=== PATIENT | male | born 1935 | race Caucasian/White ===

== ENCOUNTER 2019-04-16 10:54 | Observation (INO) | payer OTHER ==
--- OUTSIDE RECORDS SUMMARY | 2019-04-16 10:55 | XMS REPORT ---
:1935 Author Organization eClinicalWorks Care Team Providers Name Role Phone Molina Ansari Provider Role Unavailable Allergies, Adverse Reactions, Alerts Substance Reaction Event Type N.K.D.A. 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
--- OUTSIDE RECORDS SUMMARY | 2019-04-16 10:55 | XMS REPORT ---
:1935 Author Organization eClinical[employer] Care Team Providers Name Role Phone Ben Street Provider Role Unavailable Allergies No Known Allergies Problems Problem Type Condition Code Onset Dates Condition Status Problem Primary osteoarthritis of right hip M16.11 Active Problem Gait abnormality R26.9 Active Medications No Known Medications Results No Known Results Summary Purpose [employer]ClinicalWorks Submission
--- OUTSIDE RECORDS SUMMARY | 2019-04-16 10:55 | XMS REPORT ---
:1935 Author Organization [employer] Care Team Providers Name Role Phone Ben Street Provider Role Unavailable Allergies, Adverse Reactions, Alerts Substance Reaction Event Type N.K.D.A. Info Not Available Non Drug Allergy Problems Problem Type Condition Code Onset Dates Condition Status Assessment Gait abnormality R26.9 Active Problem Gait abnormality R26.9 Active Problem Primary osteoarthritis of right hip M16.11 Active Problem Arthritis of right hip M16.11 Active Assessment Pain of right hip joint M25.551 Active Assessment Primary osteoarthritis of right hip M16.11 Active Assessment Pain, joint, knee, right M25.561 Active Medications No Known Medications Results No Known Results Summary Purpose [employer] Submission
--- OUTSIDE RECORDS SUMMARY | 2019-04-16 10:55 | XMS REPORT ---
:1935 Author Organization eClinicalWorks Care Team Providers Name Role Phone Molina Ansari Provider Role Unavailable Allergies No Known Allergies Problems Problem Type Condition Code Onset Dates Condition Status Problem Gait abnormality R26.9 Active Problem Primary osteoarthritis of right hip M16.11 Active Problem Arthritis of right hip M16.11 Active Assessment History of falling Z91.81 Active Assessment Encounter for general adult medical Z00.00 Active examination without abnormal findings Medications No Known Medications Results No Known Results Summary Purpose [employer] Submission
--- OUTSIDE RECORDS SUMMARY | 2019-04-16 10:55 | XMS REPORT ---
:1935 Author Organization eClinicalWorks Care Team Providers Name Role Phone Elaine Hernandez Provider Role Unavailable Allergies, Adverse Reactions, Alerts Substance Reaction Event Type N.K.D.A. Info Not Available Non Drug Allergy Problems Problem Type Condition Code Onset Dates Condition Status Assessment Parkinsons disease G20 Active Problem Arthritis of right hip M16.11 Active Problem Gait abnormality R26.9 Active Problem Parkinsons disease G20 Active Assessment Primary osteoarthritis of right hip M16.11 Active Assessment Gait abnormality R26.9 Active Problem Primary osteoarthritis of right hip M16.11 Active Medications Medication Code System Code Instructions Start End Date Status Dosage Date Carbidopa-Levod [facility] [address]-368 25-100 MG Oral Active 1 tablet opa 9-10 QID Results No Known Results Summary Purpose [employer] Submission
[2019-04-16 11:28] LABS: Absolute Lymphocytes (CBC) 1.3 K/uL (0.7-4.9); Lymphocytes % 27.3 % (15.3-44.8); MPV 7.9 fL (7.6-11.3); RBC Red Blood Cell Count 3.65 M/uL (4.33-5.43)
[2019-04-16 11:35] LABS: Protime INR 1.11
--- NOTE | 2019-04-16 11:36 | RAD REPORT ---
EXAM DESCRIPTION: CT - Ct Stroke Brain Wo Cont - 04/16/2019 11:27 am CLINICAL HISTORY: APHASIA COMPARISON: 2017 TECHNIQUE: Computed axial tomography of the head was obtained. All CT scans are performed using dose optimization technique as appropriate and may include automated exposure control or mA/KV adjustment according to patient size. FINDINGS: An intracranial bleed is not seen . The ventricles are normal in caliber. No extra-axial fluid collection is noted. Mild to moderate low-density within periventricular, deep and subcortical white matter likely ischemi c changes secondary to small vessel disease. Small low-density area within the right basal ganglia gavin s the appearance of old lacunar infarction. Fluid within the sinuses/ mastoids is not seen. IMPRESSION: No acute intracranial abnormality is seen. If patient's symptoms persist MRI of the bra in would be recommended. Dr Marc of the emergency room was notified at 11:30 a.m. April 16, 2019
[2019-04-16 11:45] LABS: Potassium 4.2 mmol/L (3.5-5.1)
--- NOTE | 2019-04-16 12:09 | ER ---
Nurse's Notes [facility] Name: Kaiden Rivas III Age: 83 yrs Sex: Male : 1935 Arrival Date: 04/16/2019 Time: 10:58 Bed 2 Private MD: Diagnosis: Transient cerebral ischemic attack, unspecified;Aphasia Presentation: 04/16 10:51 Presenting complaint: EMS states: had a witnessed aphasic event at [facility] that sv lasted for about 30 mins and then came out of it. Pt is back to normal at this time, Caret scale negative, c/o generalized weakness. BP 160/90 HR-63 96% BS-99. Hx Parkinson's and has chronic leg weakness/pain. Transition of care: patient was not received from another setting of care. No acute neurological deficit is noted. The patients blood glucose was checked before arriving to the hospital and was found to be normal. Onset of symptoms was April 16, 2019 at 10:30. Risk Assessment: Do you want to hurt yourself or someone else? Patient reports no desire to harm self or others. Initial Sepsis Screen: Does the patient meet any 2 criteria? RR > 20 per min. No. Patient's initial sepsis screen is negative. Does the patient have a suspected source of infection? No. Patient's initial sepsis screen is negative. Care prior to arrival: Glucose check: 99. 10:51 Method Of Arrival: EMS: [facility] sv 10:51 Acuity: MARYANN 2 sv Triage Assessment: 10:51 The onset of the patients symptoms was April 16, 2019 at 10:20. General: Appears in sv no apparent distress. comfortable, well developed, Behavior is calm, cooperative, appropriate for age. Pain: Denies pain. Neuro: Level of Consciousness is awake, alert, obeys commands, Oriented to person, place, time, situation, Gin Operator are equal bilaterally Moves all extremities. Weakness in bilateral leg(s) Speech is normal, Facial symmetry appears normal, Facial symmetry: tongue is midline, Reports weakness in right leg and left leg which is chronic Denies blurred vision dizziness, numbness headache photophobia. Cardiovascular: Patient's skin is warm and dry. Rhythm is sinus rhythm. Respiratory: Airway is patent Respiratory effort is even, unlabored, Respiratory pattern is regular, symmetrical. Derm: Skin is pink, warm \T\ dry. Musculoskeletal: Range of motion: intact in all extremities. Stroke Activation: Symptom onset < 3 hours Physician: Stroke Attending; Name: ; Notified At: ; Arrived At: Physician: Chief Stroke Resident; Name: ; Notified At: ; Arrived At: Physician: Stroke Resident; Name: ; Notified At: ; Arrived At: Physician: ED Attending; Name: Dr Marc in to see the pt, ok not to call it since symptoms have resolved.; Notified At: 11:02; Arrived At: Physician: ED Resident; Name: ; Notified At: ; Arrived At: Historical: - Allergies: 11:05 No Known Allergies; sv - Home Meds: 11:05 Sinemet 25-100 mg Oral tab [Active]; tumeric [Active]; CBP [Active]; Hemp oil [Active]; sv - PMHx: 11:05 Hypertension; Parkinsons; Chronic leg pain; sv - PSHx: 11:05 None; sv - Immunization history:: Adult Immunizations up to date. - Social history:: Smoking status: Patient/guardian denies using tobacco. - Family history:: not pertinent. - Ebola Screening: : No symptoms or risks identified at this time. - Hospitalizations: : No recent hospitalization is reported. Screenin:39 Abuse screen: Denies threats or abuse. Denies injuries from another. Nutritional hb screening: No deficits noted. Tuberculosis screening: No symptoms or risk factors identified. Fall Risk Total Benson Fall Scale indicates High Risk Score (45 or more points). Fall prevention measures have been instituted. Side Rails Up X 2 Frequent Obs/Assessments Occuring Family Present and informed to notify staff if the need to leave the bedside As available patient and family educated on Fall Prevention Program and Strategies. Assessment: 10:55 Reassessment: Pt has chronic leg pain/weakness and Parkinson's dx. sv 11:33 Patient has been NPO before screening. The patient is alert, and able to follow sv commands. The patient does not exhibit slurred or garbled speech. The patient is not exhibiting difficulty speaking. The patient does not exhibit difficulty understanding words. The patient is able to swallow own secretions with no drooling or need for suction. Patient tolerated one teaspoon of water. No drooling, immediate coughing, gurgling, or clearing of the throat was noted. The patient tolerated 90mL of water. No drooling, immediate coughing, gurgling, or clearing of the throat was noted. The patient passed the bedside swallow screening. Oral medications may be given as ordered. Contact Physician for further diet orders. Provider notified of bedside swallow screening results: Carter Marc MD. 12:45 Reassessment: Patient appears in no apparent distress at this time. No changes from sv previously documented assessment. Patient and/or family updated on plan of care and expected duration. Pain level reassessed. Patient is alert, oriented x 3, equal unlabored respirations, skin warm/dry/pink. 12:51 Reassessment: Dr Burden at the bedside. sv 12:55 T-PA (Activase) Screening: Contraindications: Rapidly improving condition or minor sv deficit: Yes. 13:37 Reassessment: Attempted to call report, DEBI RN to call back. sv 14:00 Reassessment: Patient appears in no apparent distress at this time. No changes from sv previously documented assessment. Patient and/or family updated on plan of care and expected duration. Pain level reassessed. Patient is alert, oriented x 3, equal unlabored respirations, skin warm/dry/pink. Vital Signs: 10:54 BP 168 / 91; Pulse 66; Resp 21; Temp 98.3; Pulse Ox 96% ; Pain 0/10; sv 11:30 BP 159 / 81; Pulse 61; Resp 20; Pulse Ox 97% on R/A; Pain 0/10; hb 12:23 BP 159 / 80; Pulse 62; Resp 20; Pulse Ox 96% ; sv 13:43 BP 155 / 79; Pulse 64; Resp 21; Pulse Ox 97% ; sv [place] Coma Score: 10:54 Eye Response: spontaneous(4). Verbal Response: oriented(5). Motor Response: obeys sv commands(6). Total: 15. NIH Stroke Scale Scores: 10:55 NIHSS Score: 2 sv ED Course: 10:58 Patient arrived in ED. iw 10:59 Rosemarie Redman, BO is Primary Nurse. sv 10:59 Carter Marc MD is Attending Physician. rn 10:59 EKG done, by field sampling technician. reviewed by Carter Marc MD. sv 10:59 Missed attempt(s): 20 gauge in right wrist. done by Willow SORIANO. Bleeding controlled, sv band aid applied, catheter tip intact. 11:02 ED physician to see patient. sv 11:04 Triage completed. sv 11:05 Arm band placed on. sv 11:06 Patient has correct armband on for positive identification. Placed in gown. Bed in low hb position. Call light in reach. Side rails up X2. 11:14 Initial lab(s) drawn, by me, sent to lab. Inserted saline lock: 20 gauge in right ms antecubital area, using aseptic technique. Blood collected. 11:28 CT Stroke Brain w/o Contrast In Process Unspecified. EDMS 11:30 Patient moved back from CT. sv 12:08 Radha Burden MD is Hospitalizing Provider. rn 12:40 Awaiting bed assignment. sv 13:44 No provider procedures requiring assistance completed. Patient admitted, IV remains in sv place. intact. Administered Medications: No medications were administered Point of Care Testing: Blood Glucose: 11:05 Blood Glucose: 89 mg/dL; hb Ranges: Outcome: 12:09 Decision to Hospitalize by Provider. rn 14:04 Admitted to Tele accompanied by [employer], via stretcher, room 228, with chart, Report sv called to DEBI RN 14:04 Condition: stable 14:04 Instructed on the need for admit. 14:16 Patient left the ED. sv NIH Stroke Scale - NIH Stroke Score Date: 04/16/2019 Time: 10:55 Total Score = 2 1a. Level of Consciousness (LOC) - 0(Alert) 1b. Level of Consciousness (LOC) (Year \T\ Age) - 0(Both) 1c. LOC Commands (Open \T\ Closes Eyes/Bakery Manager) - 0(Both) 2. Best Gaze (Lateral Gaze Paresis) - 0(Normal) 3. Visual Field Loss - 0(No visual loss) 4. Facial Palsy - 0(Normal) 5a. Left Arm: Motor (10-second hold) - 0(No drift) 5b. Right Arm: Motor (10-second hold) - 0(No drift) 6a. Left Leg: Motor (5-second hold - always test supine) - 0(No drift) 6b. Right Leg: Motor (5-second hold - always test supine) - 2(Drift, some effort against gravity) 7. Limb Ataxia (finger/nose \T\ heel/castillo - test with eyes open) - 0(Absent) 8. Sensory Loss (pinprick arms/legs/face) - 0(Normal) 9. Best Language: Aphasia (description/naming/reading) - 0(No aphasia) 10. Dysarthria (speech clarity - read or repeat words) - 0(Normal) 11. Extinction and Inattention (visual/tactile/auditory/spatial/personal) - 0(No abnormality) Initials: Signatures: Dispatcher [employer] Rosemarie Hutchinson RN RN sv Williams, Irene, RN RN iw Villarreal, Maria ms Nieto, Roman, MD MD rn Baxter, Heather, RN RN
--- NOTE | 2019-04-16 12:09 | EDPHYS ---
Physician Documentation [facility] Name: Kaiden Rivas III Age: 83 yrs Sex: Male : 1935 Arrival Date: 04/16/2019 Time: 10:58 Bed 2 Private MD: ED Physician Carter Marc HPI: 04/16 11:17 This 83 yrs old Male presents to ER via EMS with complaints of Aphasia. rn 11:17 The patient's problem is reported as dysphasia, expressive aphasia. Onset: The rn symptoms/episode began/occurred just prior to arrival. Duration: This was a single incident, lasting 30 minute(s). The symptoms are alleviated by nothing. The symptoms are aggravated by nothing. Severity of symptoms: At their worst the symptoms were severe in the emergency department the symptoms have resolved. The patient has not experienced similar symptoms in the past. Caregiver reports went to check on him today, was sitting down, awake, using arms and legs, seemed frustrated and unable to speak, patient aware of what was happening, states wanted to speak just physically couldn't. Lasted about 30 min to 1 hour, now back to baseline. No syncope or seizure.. Historical: - Allergies: 11:05 No Known Allergies; sv - Home Meds: 11:05 Sinemet 25-100 mg Oral tab [Active]; tumeric [Active]; CBP [Active]; Hemp oil [Active]; sv - PMHx: 11:05 Hypertension; Parkinsons; Chronic leg pain; sv - PSHx: 11:05 None; sv - Immunization history:: Adult Immunizations up to date. - Social history:: Smoking status: Patient/guardian denies using tobacco. - Family history:: not pertinent. - Ebola Screening: : No symptoms or risks identified at this time. - Hospitalizations: : No recent hospitalization is reported. ROS: 11:17 Constitutional: Negative for fever, chills, and weight loss, Eyes: Negative for injury, rn pain, redness, and discharge, Neck: Negative for injury, pain, and swelling, Cardiovascular: Negative for chest pain, palpitations, and edema, Respiratory: Negative for shortness of breath, cough, wheezing, and pleuritic chest pain, Abdomen/GI: Negative for abdominal pain, nausea, vomiting, diarrhea, and constipation, MS/Extremity: Negative for injury and deformity, Skin: Negative for injury, rash, and discoloration, Neuro: Negative for headache, weakness, numbness, tingling, and seizure, + aphasia Exam: 11:17 Constitutional: This is a well developed, well nourished patient who is awake, alert, rn and in no acute distress. Head/Face: Normocephalic, atraumatic. ENT: MMM Cardiovascular: Regular rate and rhythm. No pulse deficits. Respiratory: No increased work of breathing, no retractions or nasal flaring. Speaking full sentences and clearly. Abdomen/GI: soft, non-tender MS/ Extremity: Pulses equal, no cyanosis. Neurovascular intact. Full, normal range of motion. Equal circumference. Neuro: Awake and alert, GCS 15, oriented to person, place, time, and situation. Cranial nerves II-XII grossly intact. Motor strength 5/5 in all extremities. Sensory grossly intact. Vital Signs: 10:54 BP 168 / 91; Pulse 66; Resp 21; Temp 98.3; Pulse Ox 96% ; Pain 0/10; sv 11:30 BP 159 / 81; Pulse 61; Resp 20; Pulse Ox 97% on R/A; Pain 0/10; hb 12:23 BP 159 / 80; Pulse 62; Resp 20; Pulse Ox 96% ; sv 13:43 BP 155 / 79; Pulse 64; Resp 21; Pulse Ox 97% ; sv NIH Stroke Scale Scores: 10:55 NIHSS Score: 2 sv [place] Coma Score: 10:54 Eye Response: spontaneous(4). Verbal Response: oriented(5). Motor Response: obeys sv commands(6). Total: 15. MDM: 10:59 Patient medically screened. rn 12:07 Differential diagnosis: TIA, Parkinson disease, metabolic disorder, drug effects. Data rn reviewed: vital signs, nurses notes, lab test result(s), EKG, radiologic studies, CT scan, and as a result, I will admit patient. Counseling: I had a detailed discussion with the patient and/or guardian regarding: the historical points, exam findings, and any diagnostic results supporting the discharge/admit diagnosis, lab results, radiology results, the need for further work-up and treatment in the hospital. Response to treatment: the patient's condition has returned to base line, the patient is now symptom free, and as a result, I will admit patient. Admission orders: after a detailed discussion of the patient's condition and case, the admit orders are written by me. 04/16 11:16 Order name: Basic Metabolic Panel; Complete Time: 11: rn 04/16 11:16 Order name: CBC with Diff; Complete Time: rn 04/16 11:16 Order name: Protime (+inr); Complete Time: : rn 04/16 11:16 Order name: Ptt, Activated; Complete Time: rn 04/16 11:16 Order name: CT Stroke Brain w/o Contrast; Complete Time: rn 04/16 11:21 Order name: Glucose, Ancillary Testing; Complete Time: :45 EDMS 04/16 11:16 Order name: EKG; Complete Time: 11: rn 04/16 11:16 Order name: Accucheck; Complete Time: : rn 04/16 11:16 Order name: Cardiac monitoring; Complete Time: : rn 04/16 11:16 Order name: EKG - Nurse/Tech; Complete Time: rn 04/16 11:16 Order name: IV Saline Lock; Complete Time: 11: rn 04/16 11:16 Order name: Labs collected and sent; Complete Time: rn 04/16 11:16 Order name: NPO; Complete Time: rn 04/16 11:16 Order name: O2 Per Protocol; Complete Time: : rn 04/16 11:16 Order name: O2 Sat Monitoring; Complete Time: : rn 04/16 11:16 Order name: Stroke Swallow Screen; Complete Time: 11:32 rn Administered Medications: No medications were administered Point of Care Testing: Blood Glucose: 11:05 Blood Glucose: 89 mg/dL; hb Ranges: Critical Glucose Levels:Adult <50 mg/dl or >400 mg/dl <40 mg/dl or >180 mg/dl Disposition: 04/16/19 12:09 Hospitalization ordered by Radha Burden for Inpatient Admission. Preliminary diagnosis are Transient cerebral ischemic attack, unspecified, Aphasia. - Bed requested for Telemetry/MedSurg (Inpatient). - Status is Inpatient Admission. sv - Condition is Stable. - Problem is new. - Symptoms have improved. UTI on Admission? No NIH Stroke Scale - NIH Stroke Score Date: 04/16/2019 Time: 10:55 Total Score = 2 1a. Level of Consciousness (LOC) - 0(Alert) 1b. Level of Consciousness (LOC) (Year \T\ Age) - 0(Both) 1c. LOC Commands (Open \T\ Closes Eyes/Library Circulation Clerk) - 0(Both) 2. Best Gaze (Lateral Gaze Paresis) - 0(Normal) 3. Visual Field Loss - 0(No visual loss) 4. Facial Palsy - 0(Normal) 5a. Left Arm: Motor (10-second hold) - 0(No drift) 5b. Right Arm: Motor (10-second hold) - 0(No drift) 6a. Left Leg: Motor (5-second hold - always test supine) - 0(No drift) 6b. Right Leg: Motor (5-second hold - always test supine) - 2(Drift, some effort against gravity) 7. Limb Ataxia (finger/nose \T\ heel/castillo - test with eyes open) - 0(Absent) 8. Sensory Loss (pinprick arms/legs/face) - 0(Normal) 9. Best Language: Aphasia (description/naming/reading) - 0(No aphasia) 10. Dysarthria (speech clarity - read or repeat words) - 0(Normal) 11. Extinction and Inattention (visual/tactile/auditory/spatial/personal) - 0(No abnormality) Initials: Signatures: Dispatcher [employer] EDMS Lora Betts Stephanie, RN RN sv Nieto, Roman, MD MD rn Baxter, Heather, RN RN Corrections: (The following items were deleted from the chart) 13:27 12:09 Hospitalization Ordered by Radha Burden MD for Inpatient Admission. bd Preliminary diagnosis is Transient cerebral ischemic attack, unspecified; Aphasia. Bed requested for Telemetry/MedSurg (Inpatient). Status is Inpatient Admission. Condition is Stable. Problem is new. Symptoms have improved. UTI on Admission? No. rn 14:16 13:27 04/16/2019 12:09 Hospitalization Ordered by Radha Burden MD for Inpatient sv Admission. Preliminary diagnosis is Transient cerebral ischemic attack, unspecified; Aphasia. Bed requested for Telemetry/MedSurg (Inpatient). Status is Inpatient Admission. Condition is Stable. Problem is new. Symptoms have improved. UTI on Admission? No. bd
[2019-04-16] MEDS ORDERED: ACETAMINOPHEN 500 MG TAB PO PRN (13:24)
[2019-04-16] MEDS ORDERED: ALPRAZOLAM 0.25 MG TABLET PO PRN (13:24)
[2019-04-16] MEDS ORDERED: MAGNESIUM HYDROXIDE 8% 30 ML PO PRN (13:24)
[2019-04-16] MEDS ORDERED: ONDANSETRON 4 MG/2 ML VIAL IV PRN (13:24)
[2019-04-16 14:33] VITALS: BMI 22.7
[2019-04-16] MEDS ORDERED: HYDRALAZINE HCL 20 MG/ML VIAL IV PRN (14:37)
--- NOTE | 2019-04-16 14:55 | EKG ---
Test Date: 2019-04-16 Test Time: 10:59:51 Product Safety Technical Assistant: ABBY MEASUREMENT RESULTS: Intervals: Rate: 64 AL: 182 QRSD: 74 QT: 438 QTc: 451 [place]: P: 58 AL: 182 QRS: 91 T: -5 INTERPRETIVE STATEMENTS: Normal sinus rhythm Rightward axis Anterior infarct, age undetermined Abnormal ECG Compared to ECG 03/27/2016 05:24:48 Right-axis deviation now present Myocardial infarct finding still present Electronically Signed On 04-16-19 14:54:42 COLD STRIP ROLLER by Abhijeet Bolton
[2019-04-16] MEDS ORDERED: INFLUENZA VACCINE (for 3y+) 0.5 ML DOSE IMVAC ONE (15:00)
--- NOTE | 2019-04-16 15:46 | RAD REPORT ---
EXAM DESCRIPTION: MRI - Brain Wo Cont - 04/16/2019 3:33 pm CLINICAL HISTORY: TIA COMPARISON: Ct Stroke Brain Wo Cont dated 04/16/2019 TECHNIQUE: Sagittal T1-weighted images were obtained along with axial PD, heavily T2-weighted and T2 -FLAIR images. Axial DWI and ADC mapping sequences were also obtained along with coronal heavily T2-w eighted images. FINDINGS: No intracranial hemorrhage, mass or acute infarction. There is no edema or shift of midlin e structures. No extra-axial fluid collections. Nj-matter/white matter junction is preserved. Signa l voids are seen as a normal finding in the major intracranial vessels. Patient has significant atrophy and chronic ischemic change. Ventricles are in proportion to volume l oss. No sella or supra sella abnormality. No globe or orbital content acute finding. Mastoid air cells and paranasal sinuses are clear. IMPRESSION: Negative non-contrast MRI of the Brain for acute finding Prominent atrophy chronic ischemic change.
--- NOTE | 2019-04-16 16:23 | RAD REPORT ---
EXAM DESCRIPTION: - CP - 04/16/2019 4:15 pm CLINICAL HISTORY: TIA COMPARISON: No comparisonsNone. TECHNIQUE: Real-time sonographic evaluation of bilateral carotid and vertebral systems was performed . Nj scale and Doppler interrogation were performed with waveform tracing bilaterally. FINDINGS: Normal high resistance waveforms are noted in both external carotid arteries. The common c arotid arteries and internal carotid arteries show normal low resistance waveforms. No significant plaque formation is seen. Intimal thickening is present. No dissection. Tortuosity not ed on the left. Peak systolic and end diastolic velocity values and the ICA/CCA ratios are in the non -hemodynamically significant range. Antegrade flow seen in both vertebral arteries. Velocity values and ratios were recorded and are retained in the patient's imaging records. IMPRESSION: No significant atherosclerotic changes noted. No evidence of a hemodynamically significant stenosis.
[2019-04-16] MEDS: CARBIDOPA/LEVODOPA 25/100 TAB PO SCH (20:57)
[2019-04-16] MEDS: HEPARIN 5000 UNIT/ML 1 ML VIAL SQ SCH (20:57)
--- NOTE | 2019-04-17 00:01 | HP ---
Date of Admission: 04/16/2019 Chief Complaint: Confusion and aphasia. Past Medical History: 1. Parkinson disease. 2. Hypertension. 3. Chronic neck pain. History Of Present Illness: This patient is an 83-year-old gentleman who presented for confusion and aphasia since this morning. He has a history of hypertension and Parkinson disease. He denies a history of stroke and diabetes. He is a resident at assisted living facility. Patient was found to be walking unsteadily this morning. He did not fall. He was noted to be confused and did not answer the questions correctly. There was tough time for him to speak. His behavior was abnormal per [id number]. Patient denied headache or dizziness. No fever or chills. No cough or chest pain. No nausea or vomiting. No dysuria or diarrhea. No numbness or weakness. He was then brought to the emergency room because of above symptoms. In ED, his blood pressure was noted to be high. WBC 4.8 and hemoglobin 11.9. PT and PTT unremarkable. Sodium 140 and potassium 4.2. Creatinine 1.1. ED physician ordered a CT head, which did not demonstrate acute intracranial events. Highly suspected TIA and he was admitted for further observation. Past medical history as mentioned above. Home Medication: Sinemet for Parkinson. Review of Systems: Unremarkable except that mentioned in HPI. Social History: No smoking. No alcohol. He is a resident at assisted living facility. Physical Examination: HEENT: Unremarkable. Neck: Supple. No tenderness. Chest: Clear to auscultation. No labored breathing. No rales or crackles. Heart: Normal S1, S2. No murmur. Regular heart rhythm. Abdomen: Soft, nontender. Bowel sounds present. No mass. Extremities: No edema. No redness. Neuro: Cranial nerves 2 through 12 intact. Patient oriented x3. Strength 5/5 bilaterally. Sensation intact. Deep tendon reflex normal. Skin: No skin rash. Psych: Mood stable. No anxiety. Laboratory Data: WBC 4.8, hemoglobin 11.9, platelets 157. PT 13, INR 1.1, PTT 29.9. Sodium 140, potassium 4.2, chloride 108, bicarb 27, creatinine 1.13. Imaging Study: There is no acute event per brain CT. Assessment And Plan: 1. Transient ischemic attack. This patient experienced confusion and aphasia. His gait was unsteady this morning. This has been greatly improved and almost resolved. I will start aspirin. We will check lipid panel. Cardiac ultrasound, echo, brain MRI were ordered. We will consult neurologist. PT was ordered. 2. Elevated blood pressure. Patient denied history of hypertension. His daughter mentioned his blood pressure was high on the ambulance. We will give IV hydralazine as needed. If his blood pressure is consistently high, we will give blood pressure medication on discharge. 3. Parkinson disease. This is stable. We will resume home Sinemet. 4. Deep venous thrombosis prophylaxis with heparin. Overall, this patient is stable. He probably can be discharged tomorrow if workup is unremarkable. QT/MODL Voice ID: [id number] ZAYNAB
[2019-04-17 05:41] LABS: Absolute Lymphocytes (CBC) 1.4 K/uL (0.7-4.9); Basophils % 1.1 % (0-1.3); MPV 8.2 fL (7.6-11.3); RBC Red Blood Cell Count 3.68 M/uL (4.33-5.43)
[2019-04-17 06:01] LABS: Albumin 3.5 g/dL (3.4-5.0); Bilirubin Total 0.6 mg/dL (0.2-1.0); Potassium 3.7 mmol/L (3.5-5.1); Protein, Total 6.7 g/dL (6.4-8.2)
[2019-04-17] MEDS: HEPARIN 5000 UNIT/ML 1 ML VIAL SQ SCH (08:11)
[2019-04-17] MEDS: CARBIDOPA/LEVODOPA 25/100 TAB PO SCH ×2 (08:12→13:41)
[2019-04-17 08:39] VITALS: O2SAT 95
[2019-04-17] MEDS ORDERED: ASPIRIN 81 MG CHEWABLE TABLET PO SCH (09:00)
[2019-04-17] MEDS ORDERED: POTASSIUM 25 MEQ EFFERV TAB PO ONE (09:00)
--- NOTE | 2019-04-17 12:54 | ECHO ---
HEIGHT: 5 ft 7 in WEIGHT: 145 lb 1.6 oz DATE OF STUDY: 04/17/[address]: Radha Burden MD 2-DIMENSIONAL: YES M.MODE: YES DOPPLER: YES COLOR FLOW: YES TDS: NO PORTABLE: NO DEFINITY: NO BUBBLE STUDY: NO DIAGNOSIS: TRANSIENT ISCHEMIC ATTACK CARDIAC HISTORY: CATHERIZATION: SURGERY: PROSTHETIC VALVE: PACEMAKER: MEASUREMENTS (cm) DIASTOLIC (NORMALS) SYSTOLIC (NORMALS) IVSd 0.9 (0.6-1.2) LA Diam (1.9-4.0) LVEF 70% LVIDd 3.4 (3.5-5.7) LVIDs 2.1 (2.0-3.5) %FS 39% LVPWd 1.0 (0.6-1.2) Ao Diam 2.7 (2.0-3.7) 2 DIMENSIONAL ASSESSMENT: RIGHT ATRIUM: NORMAL LEFT ATRIUM: NORMAL RIGHT VENTRICLE: NORMAL LEFT VENTRICLE: NORMAL TRICUSPID VALVE: NORMAL MITRAL VALVE: NORMAL PULMONIC VALVE: NORMAL AORTIC VALVE: SCLEROSIS PERICARDIAL EFFUSION: NONE AORTIC ROOT: NORMAL LEFT VENTRICULAR WALL MOTION: NORMAL EJECTION FRACTION. DOPPLER/COLOR FLOW: MILD TRICUSPID REGURGITATION. COMMENTS: MILD TRICUSPID REGURGITATION NORMAL RIGHT VENTRICULAR SYSTOLIC PRESSURE. AORTIC SCLEROSIS. NORMAL LEFT VENTRICULAR SIZE AND EJECTION FRACTION. DECREASED LEFT VENTRICULAR COMPLIANCE. TECHNOLOGIST: JANNA AMBRIZ
[2019-04-17 15:01] VITALS: BP 134/81; TEMP 98.3
--- NOTE | 2019-04-17 21:53 | CON ---
Reason For Consultation: Consultation called because of possible transient ischemic attack. History Of Present Illness: Mr. Rivas is an 83-year-old right-handed patient I see in clinic for Parkinson disease. He also has comorbid hypertension and chronic cervical radiculopathy. The patient's caregiver and family member in the room reports that yesterday he developed sudden onset right arm weakness and slurred speech with some difficulty expressing himself. The symptoms seem to develop over about 10 minutes and then begin to resolve; and by the time he was brought into [facility], he seem to be close to baseline. Head CT scan showed no acute ischemic or hemorrhagic change. Subsequent brain MRI done after his admission identified no acute ischemic or hemorrhagic finding. There was no significant acute abnormalities seen; however , there was prominent atrophy and chronic small-vessel ischemic disease identified. He did have a complete stroke workup including echocardiogram showing ejection fraction 70% with decreased left ventricular compliance, mild tricuspid regurgitation. His carotid artery ultrasound showed no evidence of hemodynamically significant stenosis, and blood work revealed essentially unremarkable complete blood count with differential. Coagulation panel was normal. Chemistries essentially unremarkable, slightly elevated chloride and slightly decreased GFR. Otherwise, liver function studies unremarkable. His LDL cholesterol was elevated to 130, HDL cholesterol 55, and his cholesterol to HDL ratio 3.71. Thyroid-stimulating hormone level normal at 1.62. His electrocardiogram shows sinus rhythm with rightward axis and anterior infarct, age undetermined. As indicated, the patient's symptoms resolved. He is being hospitalized. He did receive some IV fluids and did receive aspirin 81 mg daily and continue his levodopa/carbidopa 25/100 four times daily. Past Medical History: As indicated. Medications: Sinemet or carbidopa/levodopa 100/25 mg 4 times daily, aspirin 81 mg daily, Xanax 0.5 mg as needed, Apresoline for blood pressure control. He did receive heparin 5000 units subcutaneously every 12 hours for DVT prophylaxis. Allergies: NO KNOWN DRUG ALLERGIES. Social History: No alcohol, tobacco, or IV drug use. Patient lives in assisted living. Review of Systems: No recent chills, fevers, myalgias, arthralgias, rash, headache, weight change. Physical Examination: Vital Signs: Blood pressure 134/81, pulse 84, respiratory rate 16, temperature 98.3, oxygen saturation 96% room air. Weight 145 pounds, height 5 feet 7 inches , BMI 22.7. General: Mr. Rivas is resting in bed. He is in no acute distress. HEENT: He is normocephalic, atraumatic. Sclerae are anicteric. Oropharynx is moist and pink. Neck: Supple. Chest: Clear. Heart: Regular. Extremities: No edema, cyanosis, or clubbing. Neurological: He is alert and oriented to situation, place, and person. Slightly slow to respond to some questions. His face has a mild masked like appearance, but there is good facial excursions bilaterally and face is symmetric. He has no focal cranial nerve deficits. Motor examination, he has slightly increased tone in both upper extremities with mild cogwheeling noted bilaterally, but strength is 5/5 proximally and distally. Strength of the lower extremities are completely unremarkable there as well. No focal deficits. Sensory exam is intact in the upper and lower extremities. Reflexes depressed in the upper and lower extremities. Coordination intact in upper and lower extremities. With his gait, he has a slow festinating gait. Assessment/Plan: Mr. Rivas is an 83-year-old patient with possible transient ischemic attack involving left brain producing some dysarthria, dysphagia, and right-sided weakness, has resolved. Should be on the aspirin 81 mg daily. In addition, high-dose statin, perhaps Zocor or Lipitor 40 mg at night, and folic acid 1 mg daily. Continue for his Parkinson disease Sinemet 25/100 four times daily. Patient should engage in Sit and Be Fit exercises for 3-4 times daily and hydrate 8-10 glasses of water daily. He may follow up in Dr. Pichardo's clinic in 1 month after discharge. VAHID/KIMBERLY Voice ID: [id number] Report ID: [id number] ZAYNAB
--- NOTE | 2019-04-18 02:27 | DS ---
Date of Discharge: 04/17/2019 Hospital Course: This patient is an 83-year-old gentleman who presented for confusion and aphasia. He has a history of recurrent Parkinson disease, hypertension, and chronic back pain. In the ED, CT head was unremarkable. ED physician highly suspect TIA. He was admitted for observation. MRI does not demonstrate evidence of a stroke. Echo demonstrated normal ejection fraction. Carotid ultrasound unremarkable. Confusion and speech issues are resolved. I discussed the case with neurologist, who recommended to discharge the patient. This patient needs to follow neurologist in 1 week. Physical Examination: General: On discharge, the patient is awake and alert, in no acute distress. Vital Signs: Temperature 98.3, pulse 84, respiratory rate 18, blood pressure 134/81, oxygen saturation 96%. HEENT: Unremarkable. Normocephalic. Chest: Clear. No labored breathing. No wheezing. Heart: Normal S1, S2. Regular rhythm and rate. No murmur. Abdomen: Soft, nontender. Bowel sounds present. Extremities: No edema, no cyanosis. Neuro: Patient awake and alert, oriented x3. Nonfocal. Laboratory Data: On discharge, WBC 4.3, hemoglobin 12.1, platelet 157. Sodium 140, potassium 3.7, creatinine 0.88. Liver enzymes within normal range. Total cholesterol 204. Discharge Diagnoses: 1. Transient ischemic attack. 2. Parkinson disease. 3. Hypertension. Discharge Medications: Aspirin 81 mg daily, otherwise see discharge medication list. Discharge Instructions: 1. Please follow neurologist in 1 week. 2. Please follow PCP in 1 or 2 weeks. 3. Please go to emergency room if having any concerns including confusion, focal numbness or weakness. Discharge Diet: Healthy heart diet. Discharge Activity: As tolerated. I spent at least 25 minutes to discharge patient including education and arrange a followup. QT/MODL Voice ID: [id number] Report ID: [id number] ZAYNAB
== END 2019-04-17 15:59 | disposition home or self-care (01) ==
LOC: ER 10:54 → ERHOLD 13:19 → 2ND 14:04
PROVIDERS: ADMIT Internal Medicine; ATTEND Internal Medicine
DX: G45.9 Transient cerebral ischemic attack, unspecified (principal); G20 Parkinson's disease; I10 Essential (primary) hypertension; M54.2 Cervicalgia; Z86.73 Personal history of transient ischemic attack (TIA), and cerebral infarction without residual deficits; E11.9 Type 2 diabetes mellitus without complications
CPT/HCPCS: 93005; 93306; 85025 ×2; 80048; 36415 ×2; 83735; 84100; 85610; 80061; 82947; 85730; 84443; 80053; 70450; 93880; 70551; 97112; 97116; 97161; 97530; 94760 ×3; 99285; J1644 ×2; G0378 ×3

== ENCOUNTER 2019-04-20 05:01 | Emergency (ER) | payer OTHER ==
--- OUTSIDE RECORDS SUMMARY | 2019-04-20 05:03 | XMS REPORT ---
:1935 Author Organization [employer] Care Team Providers Name Role Phone Ben [...] Medications Results No Known Results Summary Purpose [employer] Submission
--- OUTSIDE RECORDS SUMMARY | 2019-04-20 05:04 | XMS REPORT ---
[...] Medications Results No Known Results Summary Purpose [employer] Submission
--- OUTSIDE RECORDS SUMMARY | 2019-04-20 05:04 | XMS REPORT ---
[...] Start End Date Status Dosage Date Carbidopa-Levod [facility] [id number] 25-100 MG Oral Active 1 tablet opa 9-10 QID Results No Known Results Summary Purpose [employer] Submission
[2019-04-20 06:01] LABS: Basophils % 0.5 % (0-1.3); Hematocrit 35.6 % (39.6-49.0); Lymphocytes % 14.9 % (15.3-44.8); MPV 8.1 fL (7.6-11.3); RBC Red Blood Cell Count 3.71 M/uL (4.33-5.43)
[2019-04-20] MEDS ORDERED: KETOROLAC 30 MG/ML INJ ONE (06:21)
[2019-04-20 06:22] LABS: Albumin 3.6 g/dL (3.4-5.0); Bilirubin Total 0.6 mg/dL (0.2-1.0); Potassium 3.8 mmol/L (3.5-5.1); Protein, Total 6.8 g/dL (6.4-8.2)
--- NOTE | 2019-04-20 06:58 | EDPHYS ---
Physician Documentation [facility] Name: Kaiden Rivas III Age: 83 yrs Sex: Male : 1935 Arrival Date: 04/20/2019 Time: 05:03 Bed 2 Private MD: ED Physician Kevin Ac HPI: 04/20 06:53 This 83 yrs old Male presents to ER via EMS with complaints of Wrist Pain. homero 06:53 The patient or guardian reports decreased range of motion, pain. The complaints affect homero the right wrist diffusely. Context: resulted from a fall. Onset: The symptoms/episode began/occurred 2 day(s) ago. Modifying factors: The symptoms are alleviated by holding still, the symptoms are aggravated by movement. Compartment Syndrome negative for numbness, tingling, positive for pain. The patient has experienced similar episodes in the past, a few times. Historical: - Allergies: 05:28 No Known Allergies; vc - Home Meds: 05:28 carvidopa [Active]; aspirin Oral [Active]; vc - PMHx: 05:28 Parkinsons; vc - PSHx: 05:28 None; vc - Immunization history:: Adult Immunizations unknown. - Social history:: Smoking status: Patient/guardian denies using tobacco. - Ebola Screening: : No symptoms or risks identified at this time. - Family history:: not pertinent. ROS: 06:53 Constitutional: Negative for fever, chills, and weight loss, Eyes: Negative for injury, homero pain, redness, and discharge, ENT: Negative for injury, pain, and discharge, Neck: Negative for injury, pain, and swelling, Cardiovascular: Negative for chest pain, palpitations, and edema, Respiratory: Negative for shortness of breath, cough, wheezing, and pleuritic chest pain, Abdomen/GI: Negative for abdominal pain, nausea, vomiting, diarrhea, and constipation, Back: Negative for injury and pain, : Negative for injury, bleeding, discharge, and swelling, Skin: Negative for injury, rash, and discoloration, Neuro: Negative for headache, weakness, numbness, tingling, and seizure, Psych: Negative for depression, anxiety, suicide ideation, homicidal ideation, and hallucinations, Allergy/Immunology: Negative for hives, rash, and allergies, Endocrine: Negative for neck swelling, polydipsia, polyuria, polyphagia, and marked weight changes, Hematologic/Lymphatic: Negative for swollen nodes, abnormal bleeding, and unusual bruising. 06:53 MS/extremity: Positive for decreased range of motion, pain, of the right wrist. Exam: 06:53 Constitutional: This is a well developed, well nourished patient who is awake, alert, homero and in no acute distress. Head/Face: Normocephalic, atraumatic. Eyes: Pupils equal round and reactive to light, extra-ocular motions intact. Lids and lashes normal. Conjunctiva and sclera are non-icteric and not injected. Cornea within normal limits. Periorbital areas with no swelling, redness, or edema. ENT: Nares patent. No nasal discharge, no septal abnormalities noted. Tympanic membranes are normal and external auditory canals are clear. Oropharynx with no redness, swelling, or masses, exudates, or evidence of obstruction, uvula midline. Mucous membranes moist. Neck: Trachea midline, no thyromegaly or masses palpated, and no cervical lymphadenopathy. Supple, full range of motion without nuchal rigidity, or vertebral point tenderness. No Meningismus. Chest/axilla: Normal chest wall appearance and motion. Nontender with no deformity. No lesions are appreciated. Cardiovascular: Regular rate and rhythm with a normal S1 and S2. No gallops, murmurs, or rubs. Normal PMI, no JVD. No pulse deficits. Respiratory: Lungs have equal breath sounds bilaterally, clear to auscultation and percussion. No rales, rhonchi or wheezes noted. No increased work of breathing, no retractions or nasal flaring. Abdomen/GI: Soft, non-tender, with normal bowel sounds. No distension or tympany. No guarding or rebound. No evidence of tenderness throughout. Back: No spinal tenderness. No costovertebral tenderness. Full range of motion. Skin: Warm, dry with normal turgor. Normal color with no rashes, no lesions, and no evidence of cellulitis. Psych: Awake, alert, with orientation to person, place and time. Behavior, mood, and affect are within normal limits. 06:53 Musculoskeletal/extremity: ROM: limited active range of motion, limited passive range of motion, Circulation is intact in all extremities. Sensation intact. Compartment Syndrome exam of affected extremity: is normal. DVT Exam: no swelling, no appreciated bluish discoloration, no erythema, no increased warmth, pain, tenderness. Vital Signs: 05:15 BP 147 / 93; Pulse 71; Resp 20; Temp 99.5(R); Pulse Ox 94% on R/A; Weight 74.84 kg; vc Height 5 ft. 6 in. (167.64 cm); Pain 10/10; 05:56 BP 156 / 74; Pulse 67; Resp 21; Temp 99.5(R); Pulse Ox 97% on R/A; Pain 10/10; vc 06:43 BP 157 / 87; Pulse 70; Resp 17; Pulse Ox 98% on R/A; Pain 2/10; vc 05:15 Body Mass Index 26.63 (74.84 kg, 167.64 cm) vc MDM: 05:18 Patient medically screened. tw4 06:53 Data reviewed: vital signs, nurses notes, lab test result(s), radiologic studies, plain homero films. 04/20 05:23 Order name: CBC with Diff; Complete Time: 06:05 [facility] 04/20 06:05 Interpretation: Normal except: WBC 6.8; RBC 3.71; HGB 12.2; HCT 35.6. tw4 04/20 05:23 Order name: CMP; Complete Time: 06:44 4 04/20 05:23 Order name: Wrist Right 3 View XRAY 4 04/20 05:23 Order name: CXR XRAY [facility] 04/20 06:24 Order name: Wrist Splint; Complete Time: 06:40 lp1 Administered Medications: No medications were administered Disposition: 04/20/19 06:57 Discharged to Home. Impression: Sprain of carpal joint of right wrist, Contusion of right wrist, Parkinson's disease, Repeated falls. - Condition is Stable. - Discharge Instructions: Fall Prevention in the Home, Parkinson Disease, Wrist Splint, Wrist Splint, Ckvg-[id number], Wrist Pain, [id number]-[id number], Fall Prevention in the Home, Pysh-pt-Mzcr, Parkinson Disease, Busb-gv-Olwl, Wrist Sprain, Wrist Pain. - Medication Reconciliation Form, Thank You Letter, Antibiotic Education, Prescription Opioid Use form. - Follow up: Private Physician; When: Upon discharge from the Emergency Department; Reason: Recheck today's complaints, Continuance of care. Follow up: River Pichardo MD; When: 2 - 3 days; Reason: Recheck today's complaints, Re-evaluation by your physician. Follow up: Ben Street MD; When: 2 - 3 days; Reason: Recheck today's complaints, Re-evaluation by your physician. - Problem is new. - Symptoms have improved. Signatures: Dispatcher [employer] Kevin Gutierrez MD MD cha Munoz, Edgar, RN RN em Nidia Yeung RN RN lp1 Gregory Bautista MD MD tw4 Kimberly Alexander RN RN vc Corrections: (The following items were deleted from the chart) 06:57 06:57 04/20/2019 06:57 Discharged to Home. Impression: Sprain of carpal joint of right homero wrist; Contusion of right wrist; Parkinson's disease; Repeated falls. Condition is Stable. Discharge Instructions: Wrist Pain. Forms are Medication Reconciliation Form, Thank You Letter, Antibiotic Education, Prescription Opioid Use. Follow up: Private Physician; When: Upon discharge from the Emergency Department; Reason: Recheck today's complaints, Continuance of care. Problem is new. Symptoms have improved. [facility] 07:39 06:57 04/20/2019 06:57 Discharged to Home. Impression: Sprain of carpal joint of right em wrist; Contusion of right wrist; Parkinson's disease; Repeated falls. Condition is Stable. Discharge Instructions: Wrist Pain. Forms are Medication Reconciliation Form, Thank You Letter, Antibiotic Education, Prescription Opioid Use. Follow up: Private Physician; When: Upon discharge from the Emergency Department; Reason: Recheck today's complaints, Continuance of care. Follow up: River Pichardo; When: 2 - 3 days; Reason: Recheck today's complaints, Re-evaluation by your physician. Follow up: Dr. Ben Street; When: 2 - 3 days; Reason: Recheck today's complaints, Re-evaluation by your physician. Problem is new. Symptoms have improved. homero
--- NOTE | 2019-04-20 06:58 | ER ---
Nurse's Notes [facility] Name: Kaiden Rivas III Age: 83 yrs Sex: Male : 1935 Arrival Date: 04/20/2019 Time: 05:03 Bed 2 Private MD: Diagnosis: Sprain of carpal joint of right wrist;Contusion of right wrist;Parkinson's disease;Repeated falls Presentation: 04/20 05:21 Presenting complaint: EMS states: [facility] called stating the patient fell and hurt vc his wrist, when EMS arrived they were informed he fell on the and . When EMS arrived patient was pale and diaphoretic, temp was 98.4 orally with an open mouth. SpO2 93% on 2L, manual pulse of 110, BP 138/84. Transition of care: patient was received from another setting of care (long-term care facility), [facility]. Onset of symptoms was April 20, 2019. Risk Assessment: Do you want to hurt yourself or someone else? Patient reports no desire to harm self or others. Initial Sepsis Screen: Does the patient meet any 2 criteria? No. Patient's initial sepsis screen is negative. Does the patient have a suspected source of infection? No. Patient's initial sepsis screen is negative. Care prior to arrival: Medication(s) given: Normal saline infusion, 500 mL, IV initiated. 20 GA, in the left antecubital area. 05:21 Method Of Arrival: EMS: [facility] 05:21 Acuity: MARYANN 3 vc Triage Assessment: 05:59 General: Appears in no apparent distress. uncomfortable, Behavior is calm, cooperative, vc appropriate for age. Pain: Complains of pain in right wrist Pain at worst was 10 out of 10 on a pain scale. Neuro: Historical: - Allergies: 05:28 No Known Allergies; vc - Home Meds: 05:28 carvidopa [Active]; aspirin Oral [Active]; vc - PMHx: 05:28 Parkinsons; vc - PSHx: 05:28 None; vc - Immunization history:: Adult Immunizations unknown. - Social history:: Smoking status: Patient/guardian denies using tobacco. - Ebola Screening: : No symptoms or risks identified at this time. - Family history:: not pertinent. Screenin:58 Abuse screen: Denies threats or abuse. Nutritional screening: No deficits noted. vc Tuberculosis screening: No symptoms or risk factors identified. Fall Risk Fall in past 12 months (25 points). Secondary diagnosis (15 points) parkinsons. IV access (20 points). Gait- Weak (10 pts.). Total Benson Fall Scale indicates High Risk Score (45 or more points). Assessment: 06:01 General: Appears in no apparent distress. comfortable, Behavior is calm, cooperative, vc appropriate for age. Pain: Complains of pain in right wrist. Neuro: Level of Consciousness is awake, alert, obeys commands, Oriented to person, place. Cardiovascular: Patient's skin is warm and dry. Respiratory: Airway is patent Respiratory effort is even, unlabored. GI: No deficits noted. GI: Stools are reported to be normal. : No deficits noted. EENT: No signs and/or symptoms were reported regarding the EENT system. Derm: No signs and/or symptoms reported regarding the dermatologic system. Musculoskeletal: Range of motion: limited in all extremities. Injury Description: Bruise sustained to righ wrist. 06:41 Reassessment: Patient is alert, oriented x 3, equal unlabored respirations, skin vc warm/dry/pink. Patients daughter at bedside. Patient states feeling better. Vital Signs: 05:15 BP 147 / 93; Pulse 71; Resp 20; Temp 99.5(R); Pulse Ox 94% on R/A; Weight 74.84 kg; vc Height 5 ft. 6 in. (167.64 cm); Pain 10/10; 05:56 BP 156 / 74; Pulse 67; Resp 21; Temp 99.5(R); Pulse Ox 97% on R/A; Pain 10/10; vc 06:43 BP 157 / 87; Pulse 70; Resp 17; Pulse Ox 98% on R/A; Pain 2/10; vc 05:15 Body Mass Index 26.63 (74.84 kg, 167.64 cm) vc ED Course: 05:03 Patient arrived in ED. ds1 05:18 Gregory Bautista MD is Attending Physician. tw4 05:21 Kimberly Alexander RN is Primary Nurse. vc 05:26 Triage completed. vc 05:30 Arm band placed on left wrist. vc 05:40 Patient has correct armband on for positive identification. caregiver with patient. vc 06:10 CXR XRAY In Process Unspecified. EDMS 06:11 Wrist Right 3 View XRAY In Process Unspecified. EDMS 06:37 Attending Physician role handed off by Gregory Bautista MD homero 06:37 Kevin Ac MD is Attending Physician. homero 06:57 River Pichardo MD is Referral Physician. homero 06:[address] MD is Referral Physician. homero 07:14 No provider procedures requiring assistance completed. IV discontinued, intact, vc bleeding controlled, No redness/swelling at site. Pressure dressing applied. Administered Medications: No medications were administered Outcome: 06:57 Discharge ordered by MD. homero 07:14 Discharged to [facility]. vc 07:14 Condition: good 07:14 Discharge instructions given to patient, family, software validation engineer, Instructed on discharge instructions, follow up and referral plans. medication usage, Demonstrated understanding of instructions, follow-up care, medications. 07:39 Patient left the ED. em Signatures: Dispatcher [employer] EDKevin Ortiz MD MD cha Munoz, Edgar, RN RN Lluvia Lowery ds1 Gregory Bautista MD MD tw4 Kimberly Alexander RN RN vc Corrections: (The following items were deleted from the chart) 06:16 05:56 BP 156 / 74; Pulse 67bpm; Resp 18bpm; Pulse Ox 96% RA; Temp 99.5F Rectal; Pain vc 10/10; vc
[2019-04-20 07:45] VITALS: TEMP 99.5
[2019-04-20 07:48] VITALS: BP 157/87; O2SAT 98
--- NOTE | 2019-04-20 08:19 | RAD REPORT ---
EXAM DESCRIPTION: Karl Single View04/20/2019 6:10 am CLINICAL HISTORY: Shortness of breath COMPARISON: 2016 FINDINGS: The medial right upper lobe is hazy Brain lungs appear clear. Moderate to large hiatal hernia The heart is normal size IMPRESSION: Medial right upper lobe is hazy which may indicate a mild pneumonia. This should be foll owed until is clear to exclude a post obstructive process/underlying mass
--- NOTE | 2019-04-20 08:27 | RAD REPORT ---
EXAM DESCRIPTION: RAD - Wrist Right 3 View - 04/20/2019 6:11 am CLINICAL HISTORY: Right wrist pain status post injury FINDINGS: The bones are osteoporotic. Degenerative calcification is present. Osteoarthritis involves the radial carpal, carpal and first carpometacarpal joints. Subchondral cysts are noted. No gross fracture or dislocation is seen. If patient continues have symptoms to suggest an occult fracture MRI would be recommended
== END 2019-04-20 07:39 | disposition home or self-care (01) ==
LOC: ER 05:01
DX: S63.511A Sprain of carpal joint of right wrist, initial encounter (principal); S60.211A Contusion of right wrist, initial encounter; R29.6 Repeated falls; G20 Parkinson's disease; Z79.82 Long term (current) use of aspirin
CPT/HCPCS: 36415; 71045; 80053; 85025; 99283

== ENCOUNTER 2019-04-25 17:20 | Inpatient (IN) | payer OTHER ==
--- OUTSIDE RECORDS SUMMARY | 2019-04-25 17:23 | XMS REPORT ---
:1935 Author Organization [employer] Care Team Providers Name Role Phone Ben [...] Medications Results No Known Results Summary Purpose [employer] Submission
--- OUTSIDE RECORDS SUMMARY | 2019-04-25 17:23 | XMS REPORT ---
[...] Start End Date Status Dosage Date Carbidopa-Levod [facility] 07054-341 25-100 MG Oral Active 1 tablet opa 9-10 QID Results No Known Results Summary Purpose [employer] Submission
--- OUTSIDE RECORDS SUMMARY | 2019-04-25 17:23 | XMS REPORT ---
[...] Medications Results No Known Results Summary Purpose [employer] Submission
--- NOTE | 2019-04-25 17:36 | RAD REPORT ---
EXAM DESCRIPTION: CT - Head Brain Wo Cont - 04/25/2019 5:30 pm CLINICAL HISTORY: Transient alteration of awareness, left-sided facial droop COMPARISON: CT head April 16 TECHNIQUE: Axial 5 mm thick images of the head were obtained without IV contrast. All CT scans are performed using dose optimization technique as appropriate and may include automated exposure control or mA/KV adjustment according to patient size. FINDINGS: No intracranial hemorrhage, mass, edema or shift of mid-line structures. No acute cortical based infarction identified. No cortical edema or sulcal effacement. The moderate atrophy and advanc ed chronic ischemic pattern match the recent comparison. No abnormal extra-axial fluid collections. V entricles are in proportion to volume loss. Arterial and physiologic calcifications are present. Mastoid air cells and visualized portions of the paranasal sinuses are clear. No acute bony findings. IMPRESSION: Negative non-contrast CT head examination for acute finding The prominent chronic ischemic change and moderate atrophy match the recent comparison. Chronic ischemic changes can mask nonhemorrhagic acute infarction. MR brain followup can be obtained if there is ongoing concern for acute ischemia.
[2019-04-25 17:57] LABS: Absolute Lymphocytes (CBC) 0.9 K/uL (0.7-4.9); Basophils % 0.7 % (0-1.3); Hematocrit 36.7 % (39.6-49.0); Lymphocytes % 10.7 % (15.3-44.8); MPV 7.6 fL (7.6-11.3); RBC Red Blood Cell Count 3.81 M/uL (4.33-5.43)
[2019-04-25 18:01] LABS: Protime INR 1.19
[2019-04-25 18:10] LABS: Potassium 4.3 mmol/L (3.5-5.1)
--- NOTE | 2019-04-25 19:04 | ER ---
Nurse's Notes [facility] Name: Kaiden Rivas III Age: 83 yrs Sex: Male : 1935 Arrival Date: 04/25/2019 Time: 17:23 Bed 2 Private MD: Diagnosis: Altered mental status, unspecified;Aphasia Presentation: 04/25 17:20 Presenting complaint: EMS states: called out for AMS, pt normally able to do things on sv his own at [facility]. Pt last seen at 1030 today and given medications and was speaking to staff. Staff called 911 after noticing pt was aphasic. Pupils dilated, left eye deviates to the left. HR-110s 93% RA, BS-140. Pt was found sitting on a chair by staff. Transition of care: [facility]. Onset of symptoms was April 25, 2019. Risk Assessment: Do you want to hurt yourself or someone else? Patient reports no desire to harm self or others. Care prior to arrival: IV initiated. 20 GA, in the left wrist, Glucose check: 114. 17:20 Method Of Arrival: EMS: [facility] sv 17:20 Acuity: MARYANN 2 sv 17:20 An acute neurological deficit is present. The patients blood glucose was checked before aa5 arriving to the hospital and was found to be normal. 17:29 Initial Sepsis Screen: Does the patient meet any 2 criteria? Altered Mental Status. No. sv Patient's initial sepsis screen is negative. Does the patient have a suspected source of infection? No. Patient's initial sepsis screen is negative. Triage Assessment: 17:20 The onset of the patients symptoms was more than six hours ago. General: Appears in no sv apparent distress. uncomfortable, Behavior is calm. Pain: Unable to use pain scale. FLACC scale score is 0 out of 10. Neuro: Level of Consciousness is awake, confused, Pt able to squeeze my hand with his left hand but not his right.. Remote Advisor are weak on right Speech with expressive aphasia noted. Cardiovascular: Patient's skin is warm and dry. Pulses are palpable in right radial artery and left radial artery. Respiratory: Airway is patent Respiratory effort is even, unlabored, Respiratory pattern is regular, symmetrical. Derm: Skin is pale. 19:20 General: Appears. rv Historical: - Allergies: 17:30 No Known Allergies; sv - PMHx: 17:30 chronic leg pain; Hypertension; Parkinsons; sv - PSHx: 17:30 None; sv - Immunization history:: Adult Immunizations unknown. - Social history:: Smoking status: unknown. - Ebola Screening: : Unable to complete screening because patient does not understand, patient is disoriented, . Screenin:19 Abuse screen: Denies threats or abuse. Nutritional screening: No deficits noted. rv Tuberculosis screening: No symptoms or risk factors identified. Fall Risk Secondary diagnosis (15 points) TIA, IV access (20 points). Ambulatory Aid- None/Bed Rest/Nurse Assist (0 pts). Mental Status- Overestimates/Forgets Limitations (15 pts.). Total Benson Fall Scale indicates High Risk Score (45 or more points). Fall prevention measures have been instituted. Side Rails Up X 2 Frequent Obs/Assessments Occuring Family Present and informed to notify staff if the need to leave the bedside. 20:55 VAN Screening: Arm Drift: Minor drift. Visual Disturbance: No visual disturbance noted. vc Aphasia: No aphasia noted. Neglect: No neglect noted. Assessment: 17:20 Reassessment: Pt unable to do NIH scale. sv 17:26 Reassessment: Pt to CT via stretcher by Kim SORIANO. sv 17:35 Reassessment: Pt back from CT. Shekhar BAKER to the bedside. sv 17:40 Patient has been NPO before screening. The patient is not alert and/or unable to follow aa5 commands. Bedside swallow screen discontinued. Patient kept NPO until cleared by Speech Therapy or Physician. 17:40 T-PA (Activase) Screening: Contraindications: Patient reports onset of signs and aa5 symptoms of stroke greater than 6 hours ago: Yes. 18:45 Reassessment: Spoke to pt's [id number] and she states left-sided facial droop is aa5 pt's baseline and states pt was diagnosed with TIA April 16, 2019. Pt's [id number] speaking to SAMUEL Hackett at this time. . 19:12 Reassessment: Patient and/or family updated on plan of care and expected duration. Pain rv level reassessed. Patient denies pain at this time. 20:23 Reassessment: Provider at bedside. vc 20:34 Reassessment: Family at bedside. vc 20:45 Reassessment: Patient is able to answer questions, and is oriented to self. vc 20:56 The patient does not exhibit slurred or garbled speech. The patient is not exhibiting vc difficulty speaking. The patient does not exhibit difficulty understanding words. The patient is able to swallow own secretions with no drooling or need for suction. Patient tolerated one teaspoon of water. No drooling, immediate coughing, gurgling, or clearing of the throat was noted. The patient tolerated 90mL of water. No drooling, immediate coughing, gurgling, or clearing of the throat was noted. The patient passed the bedside swallow screening. Oral medications may be given as ordered. Contact Physician for further diet orders. 21:00 Reassessment: Patient drank an ensure with no complications. vc 21:06 VAN Scoring: Arm Drift: Minor drift Visual Disturbance: No visual disturbance noted. vc Aphasia: No aphasia noted. Neglect: No neglect noted. 21:09 Reassessment: Attempted to call report. Will call back. vc 21:33 Reassessment: Attempted to call report to second floor. Will call back. vc 21:49 General: Appears in no apparent distress. comfortable. Pain: Denies pain. Neuro: Level vc of Consciousness is awake, obeys commands, Oriented to person, place. Cardiovascular: Capillary refill < 3 seconds Patient's skin is warm and dry. Respiratory: Airway is patent Respiratory effort is even, unlabored. GI: No signs and/or symptoms were reported involving the gastrointestinal system. : No signs and/or symptoms were reported regarding the genitourinary system. Musculoskeletal: Range of motion: limited in all extremities. Vital Signs: 17:23 BP 121 / 68; Pulse 86; Resp 18; Temp 97.9(A); Pulse Ox 100% ; Pain 0/10; sv 19:15 BP 115 / 71; Pulse 82; Resp 20; Pulse Ox 93% on R/A; rv 20:15 BP 118 / 75; Pulse 80; Resp 20; Temp 98.09; Pulse Ox 93% on R/A; Pain 0/10; vc 21:00 BP 128 / 84; Pulse 81; Resp 20; Pulse Ox 95% on R/A; Pain 0/10; vc 21:45 BP 111 / 73; Pulse 84; Resp 21; Pulse Ox 94% on R/A; Pain 0/10; vc NIH Stroke Scale Scores: 19:26 NIHSS Score: 6 jr8 21:06 NIHSS Score: 14 vc ED Course: 17:20 Maintain EMS IV. Dressing intact. Site clean \T\ dry. Gauge \T\ site: 20G L wrist. sv 17:23 Patient arrived in ED. iw 17:25 Rosemarie Redman, RN is Primary Nurse. sv 17:25 Patient has correct armband on for positive identification. Bed in low position. Call sv light in reach. Side rails up X2. monitor tech on. Pulse ox on. NIBP on. Door closed. Head of bed elevated. 17:29 Triage completed. sv 17:29 Shekhar Mullen PA is PHCP. jr8 17:29 Carter Marc MD is Attending Physician. jr8 17:30 Arm band placed on. sv 17:31 CT Head Brain wo Cont In Process Unspecified. EDMS 17:46 Initial lab(s) drawn, by me, sent to lab. Inserted saline lock: 22 gauge in right aa5 antecubital area, using aseptic technique. Blood collected. 18:47 Stroke CXR 1 View In Process Unspecified. EDMS 19:03 Anette Pineda MD is Hospitalizing Provider. jr8 19:51 Primary Nurse role handed off by Rosemarie Redman RN sv 20:21 Kimberly Alexander, BO is Primary Nurse. vc 21:12 No provider procedures requiring assistance completed. Patient admitted, IV remains in vc place. Administered Medications: 20:33 Drug: Aspirin Suppository 300 mg Route: ME; vc 21:00 Follow up: Response: No adverse reaction vc Outcome: 19:04 Decision to Hospitalize by Provider. jr8 21:12 Condition: improved vc 21:12 Instructed on the need for admit. 22:01 Admitted to Med/surg accompanied by tech, family with patient, via stretcher, room 225, vc with chart, Report called to BO Bernal 22:12 Patient left the ED. vc NIH Stroke Scale - NIH Stroke Score Date: 04/25/2019 Time: 19:26 Total Score = 6 1a. Level of Consciousness (LOC) - 0(Alert) 1b. Level of Consciousness (LOC) (Year \T\ Age) - 2(Neither) 1c. LOC Commands (Open \T\ Closes Eyes/Evaluation Engineer) - 0(Both) 2. Best Gaze (Lateral Gaze Paresis) - 0(Normal) 3. Visual Field Loss - 0(No visual loss) 4. Facial Palsy - 0(Normal) 5a. Left Arm: Motor (10-second hold) - 0(No drift) 5b. Right Arm: Motor (10-second hold) - 0(No drift) 6a. Left Leg: Motor (5-second hold - always test supine) - 0(No drift) 6b. Right Leg: Motor (5-second hold - always test supine) - 0(No drift) 7. Limb Ataxia (finger/nose \T\ heel/castillo - test with eyes open) - 0(Absent) 8. Sensory Loss (pinprick arms/legs/face) - 0(Normal) 9. Best Language: Aphasia (description/naming/reading) - 2(Severe aphasia) 10. Dysarthria (speech clarity - read or repeat words) - 2(Severe) 11. Extinction and Inattention (visual/tactile/auditory/spatial/personal) - 0(No abnormality) Initials: jr8 NIH Stroke Scale - NIH Stroke Score Date: 04/25/2019 Time: 21:06 Total Score = 14 1a. Level of Consciousness (LOC) - 0(Alert) 1b. Level of Consciousness (LOC) (Year \T\ Age) - 0(Both) 1c. LOC Commands (Open \T\ Closes Eyes/Evaluation Engineer) - 0(Both) 2. Best Gaze (Lateral Gaze Paresis) - 1(Partial gaze palsy) 3. Visual Field Loss - 1(Partial hemianopia) 4. Facial Palsy - 1(Minor Paralysis) 5a. Left Arm: Motor (10-second hold) - 1(Drift) 5b. Right Arm: Motor (10-second hold) - 2(Drift, some effort against gravity) 6a. Left Leg: Motor (5-second hold - always test supine) - 3(No effort against gravity) 6b. Right Leg: Motor (5-second hold - always test supine) - 4(No movement) 7. Limb Ataxia (finger/nose \T\ heel/castillo - test with eyes open) - 1(Present in one limb) 8. Sensory Loss (pinprick arms/legs/face) - 0(Normal) 9. Best Language: Aphasia (description/naming/reading) - 0(No aphasia) 10. Dysarthria (speech clarity - read or repeat words) - 0(Normal) 11. Extinction and Inattention (visual/tactile/auditory/spatial/personal) - 0(No abnormality) Initials: vc Signatures: Dispatcher [employer] Rosemarie Hutchinson RN RN Marialuisa Baez RN RN iw Calderon, Audri, RN RN aa5 Shekhar Mullen PA PA jr8 Joey Quintana RN RN rv Calcote, Vanessa, RN RN vc Corrections: (The following items were deleted from the chart) 21:18 21:11 Reassessment: Patient is able to answer questions, and is oriented to vc self. vc
--- NOTE | 2019-04-25 19:05 | EDPHYS ---
Physician Documentation [facility] Name: Kaiden Rivas III Age: 83 yrs Sex: Male : 1935 Arrival Date: 04/25/2019 Time: 17:23 Bed 2 Private MD: ED Physician Carter Marc HPI: 04/25 19:04 This 83 yrs old Male presents to ER via EMS with complaints of Altered Mental jr8 Status. 19:04 The patient presents with decreased responsiveness, dysphasia. Onset: The jr8 symptoms/episode began/occurred acutely, today, at an unknown time. last known normal was 10 am. Possible causes: CVA or TIA. Associated signs and symptoms: The patient has no apparent associated signs or symptoms. Current symptoms: In the emergency department the patient's symptoms are unchanged from the initial presentation. Patient's baseline: Neuro: alert and fully oriented, Motor: no deficits, Ambulation: walks with assist only, uses walker, Speech: normal. The patient has experienced similar episodes in the past, a few times. The patient has been recently seen by a physician:. Patient admitted last week for TIA. Was seen by neurology and without acute MRI findings. Had been doing well until today. Last known normal was 10 am. When health care workers came to check on him he was not talking at all to them which is very abnormal. History of Parkinson's . Historical: - Allergies: 17:30 No Known Allergies; sv - PMHx: 17:30 chronic leg pain; Hypertension; Parkinsons; sv - PSHx: 17:30 None; sv - Immunization history:: Adult Immunizations unknown. - Social history:: Smoking status: unknown. - Ebola Screening: : Unable to complete screening because patient does not understand, patient is disoriented, . ROS: 19:26 Unable to obtain ROS due to patient's speech is incomprehensible. jr8 Exam: 19:26 ENT: Nares patent. No nasal discharge, no septal abnormalities noted. Oropharynx with jr8 no redness, swelling, or masses, exudates, or evidence of obstruction, uvula midline. Mucous membranes moist. Neck: Trachea midline, no thyromegaly or masses palpated, and no cervical lymphadenopathy. Supple, full range of motion without nuchal rigidity Cardiovascular: Regular rate and rhythm with a normal S1 and S2. No gallops, murmurs, or rubs. Normal PMI, no JVD. No pulse deficits. Respiratory: Lungs have equal breath sounds bilaterally, clear to auscultation and percussion. No rales, rhonchi or wheezes noted. No increased work of breathing, no retractions or nasal flaring. Abdomen/GI: Soft, non-tender, with normal bowel sounds. No distension or tympany. No guarding or rebound. No evidence of tenderness throughout. Skin: Warm, dry with normal turgor. Normal color with no rashes, no lesions, and no evidence of cellulitis. MS/ Extremity: Pulses equal, no cyanosis. Neurovascular intact. Full, normal range of motion. 19:26 Eyes: Periorbital structures: appear normal, Pupils: right pupil is approximately 3 mm(s), left pupil is approximately 4 mm(s), reactive, Extraocular movements: baseline per family, Conjunctiva: normal, Corneas: are normal, Sclera: no appreciated abnormality, Anterior chamber: normal, Lids and lashes: appear normal. 19:26 Neuro: Orientation: to person, place, Mentation: slow to respond, Memory: unable to test, Cranial nerves: Speech is dysarthric, slowed, Motor: moves all fours, Sensation: no obvious gross deficits, seizure activity, is not displayed by the patient, Abnormal movements: resting tremor, is located in the right hand and left hand. Vital Signs: 17:23 BP 121 / 68; Pulse 86; Resp 18; Temp 97.9(A); Pulse Ox 100% ; Pain 0/10; sv 19:15 BP 115 / 71; Pulse 82; Resp 20; Pulse Ox 93% on R/A; rv 20:15 BP 118 / 75; Pulse 80; Resp 20; Temp 98.09; Pulse Ox 93% on R/A; Pain 0/10; vc 21:00 BP 128 / 84; Pulse 81; Resp 20; Pulse Ox 95% on R/A; Pain 0/10; vc 21:45 BP 111 / 73; Pulse 84; Resp 21; Pulse Ox 94% on R/A; Pain 0/10; vc NIH Stroke Scale Scores: 19:26 NIHSS Score: 6 jr8 21:06 NIHSS Score: 14 vc MDM: 17:29 Patient medically screened. 8 18:48 Data reviewed: vital signs, nurses notes, lab test result(s), EKG, radiologic studies, [facility] CT scan, plain films. Data interpreted: Pulse oximetry: on room air is 100 %. Interpretation: normal. Counseling: I had a detailed discussion with the patient and/or guardian regarding: the historical points, exam findings, and any diagnostic results supporting the discharge/admit diagnosis, lab results, radiology results, the need for further work-up and treatment in the hospital. ED course: Family stated that speech and affect very different today. Had been improving since last TIA a week ago Tuesday. Will admit for further evaluation . 19:26 ED course: Patient doing better. Speech more clear and able to answer more questions at [facility] this time. . 19:52 ED course: I have discussed case with Dr. Pichardo and will consult on case . [facility] 04/25 17:26 Order name: glucometer results - FOR PT WITH NO ID; Complete Time: 19:03 sv 04/25 17:46 Order name: Basic Metabolic Panel; Complete Time: 19:03 em 04/25 17:46 Order name: CBC with Diff; Complete Time: 19:03 em 04/25 17:46 Order name: Protime (+inr); Complete Time: 19:03 em 04/25 17:46 Order name: Ptt, Activated; Complete Time: 19:03 em 04/25 21:52 Order name: CBC with Automated Diff EDMT 04/25 21:52 Order name: CBC with Automated Diff EDMT 04/25 21:52 Order name: Comprehensive Metabolic Panel EDMT 04/25 21:52 Order name: Comprehensive Metabolic Panel [facility] 04/25 21:52 Order name: Protime (+INR) EDMT 04/25 21:52 Order name: Protime (+INR) EDMT 04/25 21:52 Order name: Protime (+INR) EDMT 04/25 21:52 Order name: Protime (+INR) EDMT 04/25 21:52 Order name: Protime (+INR) EDMT 04/25 17:24 Order name: CT Head Brain wo Cont; Complete Time: 19:03 iw 04/25 21:52 Order name: Protime (+INR) EDMS 04/25 21:52 Order name: Magnesium EDMT 04/25 21:52 Order name: Magnesium EDMT 04/25 21:52 Order name: Lipid Profile EDMT 04/25 21:52 Order name: Lipid Profile [facility] 04/25 21:52 Order name: CKMB Creatine Kinase MB [facility] 04/25 21:52 Order name: CKMB Creatine Kinase MB [facility] 04/25 21:52 Order name: CKMB Creatine Kinase MB [facility] 04/25 21:52 Order name: CKMB Creatine Kinase MB [facility] 04/25 21:52 Order name: Troponin I [facility] 04/25 21:52 Order name: Troponin I [facility] 04/25 21:52 Order name: Troponin I [facility] 04/25 21:52 Order name: Troponin I [facility] 04/25 21:52 Order name: Sedimentation Rate, Westergren [facility] 04/25 21:52 Order name: Sedimentation Rate, Sedanergren [facility] 04/25 17:46 Order name: Stroke CXR 1 View; Complete Time: 19:25 04/25 17:46 Order name: EKG; Complete Time: 17:47 em 04/25 17:46 Order name: Accucheck; Complete Time: 17:46 04/25 17:46 Order name: Cardiac monitoring; Complete Time: 17:46 em 04/25 17:46 Order name: EKG - Nurse/Tech; Complete Time: 17:46 em 04/25 17:46 Order name: IV Saline Lock; Complete Time: 17:46 em 04/25 17:46 Order name: Labs collected and sent; Complete Time: 17:46 em 04/25 17:46 Order name: NPO; Complete Time: 17:46 04/25 17:46 Order name: O2 Per Protocol; Complete Time: 17:46 04/25 17:46 Order name: O2 Sat Monitoring; Complete Time: 17:46 04/25 17:46 Order name: Stroke Swallow Screen; Complete Time: 19:10 em 04/25 21:52 Order name: Physical Therapy Consult [facility] 04/25 21:52 Order name: Speech Therapy Consult [facility] 04/25 21:52 Order name: NPO [facility] 04/25 21:52 Order name: NPO [facility] 04/25 21:52 Order name: NPO [facility] 04/25 21:52 Order name: Echo with Doppler [facility] 04/25 21:52 Order name: EKG Electrocardiogram EDMT Administered Medications: 20:33 Drug: Aspirin Suppository 300 mg Route: AK; vc 21:00 Follow up: Response: No adverse reaction vc Disposition: 04/26 08:13 Co-signature as Attending Physician, Carter Marc MD. rn Disposition: 04/25/19 19:04 Hospitalization ordered by Anette Pineda for Inpatient Admission. Preliminary diagnosis are Altered mental status, unspecified, Aphasia. - Bed requested for Telemetry/MedSurg (Inpatient). - Status is Inpatient Admission. vc - Condition is Stable. - Problem is new. - Symptoms are unchanged. UTI on Admission? No NIH Stroke Scale - NIH Stroke Score Date: 04/25/2019 Time: 19:26 Total Score = 6 1a. Level of Consciousness (LOC) - 0(Alert) 1b. Level of Consciousness (LOC) (Year \T\ Age) - 2(Neither) 1c. LOC Commands (Open \T\ Closes Eyes/Global Transportation Manager) - 0(Both) 2. Best Gaze (Lateral Gaze Paresis) - 0(Normal) 3. Visual Field Loss - 0(No visual loss) 4. Facial Palsy - 0(Normal) 5a. Left Arm: Motor (10-second hold) - 0(No drift) 5b. Right Arm: Motor (10-second hold) - 0(No drift) 6a. Left Leg: Motor (5-second hold - always test supine) - 0(No drift) 6b. Right Leg: Motor (5-second hold - always test supine) - 0(No drift) 7. Limb Ataxia (finger/nose \T\ heel/castillo - test with eyes open) - 0(Absent) 8. Sensory Loss (pinprick arms/legs/face) - 0(Normal) 9. Best Language: Aphasia (description/naming/reading) - 2(Severe aphasia) 10. Dysarthria (speech clarity - read or repeat words) - 2(Severe) 11. Extinction and Inattention (visual/tactile/auditory/spatial/personal) - 0(No abnormality) Initials: jr8 NIH Stroke Scale - NIH Stroke Score Date: 04/25/2019 Time: 21:06 Total Score = 14 1a. Level of Consciousness (LOC) - 0(Alert) 1b. Level of Consciousness (LOC) (Year \T\ Age) - 0(Both) 1c. LOC Commands (Open \T\ Closes Eyes/Global Transportation Manager) - 0(Both) 2. Best Gaze (Lateral Gaze Paresis) - 1(Partial gaze palsy) 3. Visual Field Loss - 1(Partial hemianopia) 4. Facial Palsy - 1(Minor Paralysis) 5a. Left Arm: Motor (10-second hold) - 1(Drift) 5b. Right Arm: Motor (10-second hold) - 2(Drift, some effort against gravity) 6a. Left Leg: Motor (5-second hold - always test supine) - 3(No effort against gravity) 6b. Right Leg: Motor (5-second hold - always test supine) - 4(No movement) 7. Limb Ataxia (finger/nose \T\ heel/castillo - test with eyes open) - 1(Present in one limb) 8. Sensory Loss (pinprick arms/legs/face) - 0(Normal) 9. Best Language: Aphasia (description/naming/reading) - 0(No aphasia) 10. Dysarthria (speech clarity - read or repeat words) - 0(Normal) 11. Extinction and Inattention (visual/tactile/auditory/spatial/personal) - 0(No abnormality) Initials: vc Signatures: Dispatcher [employer] Rosemarie Hutchinson, RN Morro Gracia RN RN em Nieto, Roman, MD MD rn Roszak, Josh, PA PA jr8 Daily Iniguez RN RN tl1 Kimberly Alexander RN RN vc Corrections: (The following items were deleted from the chart) 04/25 21:00 19:04 Hospitalization Ordered by Anette Pineda MD for Inpatient Admission. tl1 Preliminary diagnosis is Altered mental status, unspecified; Aphasia. Bed requested for Telemetry/MedSurg (Inpatient). Status is Inpatient Admission. Condition is Stable. Problem is new. Symptoms are unchanged. UTI on Admission? No. jr8 22:12 21:00 04/25/2019 19:04 Hospitalization Ordered by Anette Pineda MD for Inpatient vc Admission. Preliminary diagnosis is Altered mental status, unspecified; Aphasia. Bed requested for Telemetry/MedSurg (Inpatient). Status is Inpatient Admission. Condition is Stable. Problem is new. Symptoms are unchanged. UTI on Admission? No. tl1
--- NOTE | 2019-04-25 19:09 | RAD REPORT ---
EXAM DESCRIPTION: RAD - Chest Single View - 04/25/2019 6:47 pm CLINICAL HISTORY: md discretion, shortness of breath, altered mental status COMPARISON: Chest Single View dated 04/20/2019 TECHNIQUE: AP portable chest image was obtained 04/25/2019 6:47 pm . FINDINGS: Lung volumes are low. Hazy opacification in the lower right lung field is present concerni ng for early pneumonia. No significant failure or volume overload findings. Large hiatal hernia is ev ident. Heart and vasculature are normal. No measurable pleural effusion and no pneumothorax. No acute bony abnormality seen. No acute aortic findings suspected. IMPRESSION: Limited shallow inspiration exam suspicious for early right lung field pneumonia.
[2019-04-25] MEDS ORDERED: ASPIRIN 600 MG/SUPP PR ONE (20:11)
[2019-04-25] MEDS ORDERED: ONDANSETRON 4 MG/2 ML VIAL IV PRN (21:49)
--- NOTE | 2019-04-25 22:23 | P.HP ---
Certification for Inpatient Patient admitted to: Observation With expected LOS: <2 Midnights Patient will require the following post-hospital care: Prison Practitioner: I am a practitioner with admitting privileges, knowledge of patient current condition, hospital course, and medical plan of care. Services: Services provided to patient in accordance with Admission requirements found in Title 42 Section 412.3 of the Code of Federal Regulations Patient History Date of Service: 04/26/19 Reason for admission: aphasia and decreased cognition History of Present Illness: arron grimes is a 83yoM w/ pmhx of HTN and parkinson's who presents w/ worsening confusion and aphasia. although the CT head is unremarkable he was recently discharged on 04/17/2019 with identical s/s and diagnosed w/ TIA. per the family the patient was discharged on tuesday, then fell on tuesday and has had fluctuating cognitive interaction. per the family prior to the week before his last admission he was able to dress, ambulate to the restroom and feed himself which had diminshed extensively since his last hospitalization and thus needed more total care. he is being admitted for observation although on the last hospitalization he had a MRI w/o eidence of a stroke and TTE that demonstrated normal ejection fraction and a unremarkable carotid ultrasound. while in the ED his speech had improved but still appeared (per the family) to be worse than previously. he also started complaining of right wrist pain 2 days post fall and then 2 days ago he started complaining of right shoulder pain. this admission the family states that he has lived in an independent living facility and that he has daily care, where he has providers with him from 10am to 4pm daily. the family states that one of the providers visited in the morning and noted the decreased cognition and poor speech but also noted that it worsened by the afternoon along w/ lethargic and decreased responsiveness. therefore he was brought into the ER for further evaluation. he denies smoking and drug hx. family reports rare etoh use. Allergies No Known Allergies Allergy (Verified 04/25/19 23:06) Home Medications: Carbidopa/Levodopa [Carbidopa-Levo 25-100 mg Odt] 1 each PO QID 04/16/19 Turmeric Root Extract [Turmeric] 1 cap PO DAILY 04/16/19 Aspirin Chewable [Aspirin Chewable*] 81 mg PO DAILY #60 tab.chew 04/17/19 - Past Medical/Surgical History Diabetic: No - Family History Father History Unknown: Yes - Social History Alcohol use: No CD- Drugs: No Caffeine use: No Review of Systems General: Weakness Eyes: As per HPI ENT: Unremarkable Respiratory: Unremarkable Cardiovascular: Unremarkable Gastrointestinal: Unremarkable Musculoskeletal: Shoulder Pain (right ), Hand Pain (right wrist) Neurological: Weakness, Change in Speech Physical Examination - Physical Exam General: Alert, In no apparent distress, Oriented x1, Disheveled, Other (pt weak and frail, appears cognitively delayed and wax/waning) HEENT: Other (left eye superior eyelid drooping ) Respiratory: Clear to auscultation bilaterally, Normal air movement Cardiovascular: No edema, Regular rate/rhythm, No murmurs Capillary refill: >2 Seconds Gastrointestinal: Soft and benign, Non-distended, No rebound Musculoskeletal: No clubbing, No swelling Integumentary: No rashes, No breakdown Neurological: Abnormal speech, Abnormal strength External genitalia: Deferred Rectal: Deferred - Studies Laboratory Data (last 24 hrs) 04/25/19 17:46: PT 13.9 H, INR 1.19, APTT 24.8 04/25/19 17:46: WBC 8.0 D, Hgb 12.5 L, Hct 36.7 L, Plt Count 190 D 04/25/19 17:46: Sodium 132 L, Potassium 4.3, BUN 17, Creatinine 1.05, Glucose 124 H Assessment and Plan - Plan 83yoM admitted w/ aphasia h/o TIA w/ previous neurology, TTE, MRI and carotid US evaluation will need CM evaluation and interventions for home therapy will need repeat therapy evaluations will repeat MRI w/o contrast and consult neuro will obtain tsh, a1c, and lipid panel eval for infectious or other metabolic causes will need bedside dysphagia eval. TIA -recent hx, started on ASA c/w ASA repeat MRI htn - currently BP normotensive DVT - scds - Advance Directives Does patient have a Living Will: Yes Does patient have a Durable POA for Healthcare: Yes
[2019-04-25 22:55] LABS: CKMB Creatine Kinase MB < 1.0 ng/mL (0.3-3.6); Troponin I < 0.02 ng/mL (0.0-0.045)
[2019-04-25 23:04] VITALS: BMI 24.3
[2019-04-25] MEDS: NA CHLORIDE 0.9% 1,000 ML IV SCH (23:06)
[2019-04-26 06:27] LABS: Absolute Lymphocytes (CBC) 0.6 K/uL (0.7-4.9); Basophils % 0.2 % (0-1.3); Hematocrit 34.5 % (39.6-49.0); Lymphocytes % 9.7 % (15.3-44.8); MPV 8.2 fL (7.6-11.3); RBC Red Blood Cell Count 3.61 M/uL (4.33-5.43)
[2019-04-26 06:36] LABS: Protime INR 1.2
[2019-04-26 06:51] LABS: CKMB Creatine Kinase MB < 1.0 ng/mL (0.3-3.6); Troponin I < 0.02 ng/mL (0.0-0.045)
[2019-04-26 06:57] LABS: Albumin 3.4 g/dL (3.4-5.0); Bilirubin Total 0.8 mg/dL (0.2-1.0); Magnesium 2.2 mg/dL (1.8-2.4); Potassium 4.2 mmol/L (3.5-5.1); Protein, Total 7.2 g/dL (6.4-8.2); Thyroid Stimulating Hormone 0.425 uIU/mL (0.360-3.740)
[2019-04-26] MEDS ORDERED: INFLUENZA VACCINE (for 3y+) 0.5 ML DOSE IMVAC ONE (09:00)
[2019-04-26] MEDS: NA CHLORIDE 0.9% 1,000 ML IV SCH (11:50)
--- NOTE | 2019-04-26 13:36 | P.PN ---
Subjective Date of Service: 04/26/19 Chief Complaint: aphasia and decreased cognition Recurrent admission for expressive aphasia. Physical Examination - Vital Signs Temperature: 97.4 F Blood Pressure: 160/72 Pulse: 64 Respirations: 18 Pulse Ox (%): 93 - Physical Exam General: Alert, In no apparent distress HEENT: Atraumatic, PERRLA, EOMI Neck: Supple, JVD not distended Respiratory: Clear to auscultation bilaterally, Normal air movement Cardiovascular: Regular rate/rhythm, Normal S1 S2 Gastrointestinal: Normal bowel sounds, No tenderness Musculoskeletal: No tenderness Integumentary: No rashes Neurological: Normal speech, Normal tone, Normal affect Lymphatics: No axilla or inguinal lymphadenopathy - Studies Laboratory Data (last 24 hrs) 04/25/19 17:46: PT 13.9 H, INR 1.19, APTT 24.8 04/25/19 17:46: WBC 8.0 D, Hgb 12.5 L, Hct 36.7 L, Plt Count 190 D 04/25/19 17:46: Sodium 132 L, Potassium 4.3, BUN 17, Creatinine 1.05, Glucose 124 H Assessment And Plan - Plan 83yoM admitted w/ #Aphasia h/o TIA w/ previous neurology, TTE, MRI and carotid US evaluation. CM evaluation and interventions for home therapy will need repeat therapy evaluations will repeat MRI w/o contrast and consult neuro will benefit from Echo with bubble study to rule out PFO #TIA -recent hx, started on ASA c/w ASA repeat MRI brain pending #Hypertension - currently BP normotensive DVT - scds
--- NOTE | 2019-04-26 13:41 | EKG ---
Test Date: 2019-04-25 Test Time: 17:38:30 Insurance Claims Supervisor: CHRISTINE MEASUREMENT RESULTS: Intervals: Rate: 81 [place]: 198 QRSD: 82 QT: 418 QTc: 485 [place]: P: 21 [place]: 198 QRS: 25 T: 36 INTERPRETIVE STATEMENTS: Normal sinus rhythm Prolonged QT Abnormal ECG Compared to ECG 04/16/2019 10:59:51 Prolonged QT interval now present Right-axis deviation no longer present Myocardial infarct finding no longer present Electronically Signed On 04-26-19 13:38:09 [employer]IL PAINT SHADER by Shreyas Clinton
--- NOTE | 2019-04-26 14:01 | ECHO ---
HEIGHT: 5 ft 6 in WEIGHT: 150 lb 8 oz DATE OF STUDY: 04/26/[address]: Sabino Suazo 2-DIMENSIONAL: YES M.MODE: YES DOPPLER: YES COLOR FLOW: YES TDS: NO PORTABLE: NO DEFINITY: NO BUBBLE STUDY: YES DIAGNOSIS: TRANSIENT ISCHEMIC ATTACK CARDIAC HISTORY: CATHERIZATION: NO SURGERY: NO PROSTHETIC VALVE: NO PACEMAKER: NO MEASUREMENTS (cm) DIASTOLIC (NORMALS) SYSTOLIC (NORMALS) IVSd 0.9 (0.6-1.2) LA Diam 3.4 (1.9-4.0) LVEF 73% LVIDd 3.8 (3.5-5.7) LVIDs 2.2 (2.0-3.5) %FS 41% LVPWd 0.9 (0.6-1.2) Ao Diam 2.7 (2.0-3.7) 2 DIMENSIONAL ASSESSMENT: RIGHT ATRIUM: NORMAL LEFT ATRIUM: NORMAL RIGHT VENTRICLE: NORMAL LEFT VENTRICLE: NORMAL TRICUSPID VALVE: NORMAL MITRAL VALVE: NORMAL PULMONIC VALVE: NORMAL AORTIC VALVE: NORMAL PERICARDIAL EFFUSION: NONE AORTIC ROOT: NORMAL LEFT VENTRICULAR WALL MOTION: NORMAL. DOPPLER/COLOR FLOW: NORMAL. COMMENTS: NORMAL 2D ECHO. NO EVIDENCE OF ATRIAL SEPTAL DEFECT. TECHNICALLY DIFFICULT STUDY. TECHNOLOGIST: JENNIFER HALL/ JANNA AMBRIZ
[2019-04-26 14:40] LABS: CKMB Creatine Kinase MB < 1.0 ng/mL (0.3-3.6); Troponin I < 0.02 ng/mL (0.0-0.045)
--- NOTE | 2019-04-26 15:10 | RAD REPORT ---
EXAM DESCRIPTION: MRI - Brain W/Wo Cont - 04/26/2019 2:53 pm CLINICAL HISTORY: Aphasia, CVA COMPARISON: CT head April 25, MR brain April 16 TECHNIQUE: Sagittal and axial T1-weighted images were obtained. Axial PD/heavily T2-weighted and T2- FLAIR images were obtained along with axial DWI/ADC mapping sequences. Coronal heavily T2 weighted s equence obtained. Axial and coronal post-contrast T1-weighted images were also obtained. A 15 ml Mul tihance contrast following utilized. FINDINGS: Approximately 12 mm area of abnormal diffusion signal is present in the posterior limb int ernal capsule on the left. There is corresponding decreased signal on ADC mapping. Corresponding T2 s ignal abnormality present on T2/IR sequencing. There is no edema or shift of midline structures. No e xtra-axial fluid collections. Nj-matter/white matter junction is preserved. Signal voids are seen as a normal finding in the major intracranial vessels. Patient has prominent chronic ischemic change in the cerebral white matter. Moderate atrophy changes are present. Ventricles are in proportion. Post-contrast images show normal enhancement. No dural thickening. Mastoid air cells and paranasal sinuses are clear. No globe or orbital content abnormality. IMPRESSION: Small 12 mm nonhemorrhagic acute infarction in the posterior limb internal capsule on th e left. Patient has moderate atrophy and prominent chronic ischemic change matching prior imaging.
--- NOTE | 2019-04-26 16:05 | RAD REPORT ---
EXAM DESCRIPTION: RAD - Barium Swallow Modified - 04/26/2019 3:52 pm CLINICAL HISTORY: trouble swallowing COMPARISON: Abdomen Exam Limited dated 03/26/2016 TECHNIQUE: The patient was given liquid, semi-solid and solid forms of barium. Lateral view fluorosc opic imaging was performed in conjunction with speech pathology service. FINDINGS: Laryngeal penetration not cleared with thin by straw despite cued hard throat clear and re swallow two times. Aspiration no cough with thin liquid on third consecutive cup sip with tablet. P haryngeal residue vallecular pyriform posterior wall. .5 -1 second swallow delay,osteophytes c5-c7. Total fluoroscopy time: 4 minutes and 16 seconds
[2019-04-26] MEDS: ATORVASTATIN 20 MG TAB PO SCH (22:20)
--- NOTE | 2019-04-26 22:20 | CON ---
Reason For Consultation: Consultation called because of possible stroke. History Of Present Illness: Mr. Rivas is an 83-year-old right-handed patient with multiple stroke risk factors including hypertension, prior transient ischemic attacks and small vessel cerebra l ischemic disease along with Parkinson's, which is a diagnosis that he is followed for in my clinic. He was recently admitted about less than 2 weeks ago to the hospital with aphasia and difficulty wi th his articulation and poor balance. At the time, his brain CT scan and MRI were negative. His wor kup also did not reveal significant carotid blockage or atrial fibrillation. His symptoms had resolv ed at that admission. He did well for about a day and a half, then had difficulty with slurred speec h, confusion with his expression, and weakness causing a fall. He was brought back to [facility], where his head CT scan was unremarkable for any acute ischemic or hemorrhagic change. However , subsequent brain MRI identified a 12 mm nonhemorrhagic acute infarct in the posterior limb of the i nternal capsule on the left. Since admission, the patient believes he has regained some articulation , but is not back to normal and he still has some difficulty getting the proper words out. He actual ly will be ambulated with physical therapy later today and it is anticipated based on his stroke that he may have right-sided weakness in the legs and arm. Past Medical History: Stroke, transient ischemic attack, Parkinson disease, hypertension, cervical r adiculopathy. Allergies: NO KNOWN DRUG ALLERGIES. Social History: No alcohol, tobacco, or IV drug use. He lives in assisted living. Home Medications: Sinemet 25/100 four times daily, aspirin 81 mg daily, Xanax 0.5 mg daily as needed , Apresoline as needed. Family History: Noncontributory. Review of Systems: He has no recent fevers or chills, nausea, vomiting, myalgias, arthralgias, rash, psychiatric complai nts, gastrointestinal issues, or genitourinary issues. Physical Examination: Vital Signs: Blood pressure 152/82, pulse from 64 to 112, respiratory rate is 16 to 20, temperature 98.8, oxygen saturation 93% on room air. General: Mr. Rivas is resting in bed. He is in no acute distress. HEENT: He is normocephalic, atraumatic. His sclerae are anicteric. Oropharynx is moist. Neck: Supple. Chest: Clear. Heart: Regular. Extremities: No edema or cyanosis. Neurological: He is alert and oriented to situation, place, and person. He has no significant expre ssive aphasia; however, he has some difficulty with articulation, especially labial, lingual, and gut tural sounds. Unable to clearly repeat the phrase [employer]. Otherwise, on cranial ner ve, he has slight decrease of the right nasolabial fold, but good excursions bilaterally. Intact to light touch temperature in the face bilaterally. Tongue and palate are in midline. Motor examinatio n in the right upper extremity around 4+/5, on the left side 5/5. In his lower extremity on the righ t, he is 4/5 proximally and distally, on the left 5/5. Sensory exam, slight decreased to light touch temperature in the right upper and lower extremity compared to the left side. His coordination is i ntact in upper and lower extremities. His reflexes are symmetric, depressed. His gait will be asses sed when he ambulates with the physical therapist with the gait belt in place. Laboratory Studies: White blood cell count 6.1, hemoglobin 11.7, hematocrit 34.5, platelets 195. IN R 1.2. His basic metabolic panel is essentially just remarkable for glucose being elevated at 121. His hemoglobin A1c is 5.5. AST is 11, ALT 14. TSH 0.425. His LDL cholesterol elevated to 105, HDL cholesterol 61, total cholesterol 175. Assessment: Mr. Rivas is an 83-year-old patient with multiple strokes and now a new left posterior li mb of internal capsule stroke with setting of dyslipidemia, hypertension. He does have Parkinson dis ease, has a comorbid condition. He does have deficits of articulation and right-sided weakness. Plan: His medication regimen should include aspirin 81 mg daily along with Plavix 75 mg daily and a statin moderate dose, Lipitor 20 mg at night, folate acid 1 mg daily. In the setting of his acute st roke, he should have permissive hypertension for the next 5 days. Patient should be evaluated for transfer to acute inpatient rehabilitation, where intense physical th erapy can help him regain his speech and his strength in the right side with balance, coordination, a nd gait improvement as well. He will benefit greatly from acute rehab given the very recent stroke. VAHID/MODL Voice ID: [id number] Report ID: [id number]
[2019-04-27 06:09] LABS: Protime INR 1.23
[2019-04-27] MEDS: NA CHLORIDE 0.9% 1,000 ML IV SCH ×3 (06:40→19:53)
[2019-04-27] MEDS: ASPIRIN EC 81 MG TAB PO SCH (09:13)
[2019-04-27] MEDS: FOLIC ACID 1 MG TABLET PO SCH (09:13)
--- NOTE | 2019-04-27 13:23 | P.PN ---
Subjective Date of Service: 04/27/19 Chief Complaint: aphasia and decreased cognition Recurrent admission for expressive aphasia. Improving. Daughters at bedside Productive cough. Denies any SOB Physical Examination - Vital Signs Temperature: 97.8 F Blood Pressure: 167/81 Pulse: 60 Respirations: 16 Pulse Ox (%): 96 - Physical Exam General: Alert, In no apparent distress HEENT: Atraumatic, PERRLA, EOMI Neck: Supple, JVD not distended Respiratory: Clear to auscultation bilaterally, Normal air movement Cardiovascular: Regular rate/rhythm, Normal S1 S2 Gastrointestinal: Normal bowel sounds, No tenderness Musculoskeletal: No tenderness Integumentary: No rashes Neurological: Normal tone, Normal affect, Abnormal speech Lymphatics: No axilla or inguinal lymphadenopathy - Studies Laboratory Data (last 24 hrs) 04/26/19 13:50: Troponin I < 0.02 Imagings Data: Small 12 mm nonhemorrhagic acute infarction in the posterior limb internal capsule on the left. Patient has moderate atrophy and prominent chronic ischemic change matching prior imaging. Medications List Reviewed: Yes Assessment And Plan - Plan 83yoM admitted w/ h/o TIA #Acute stroke- pw Aphasia. was recently dc from hospital for TIA and work up was completed. Speech is improved -MRI brain confirmed. Secondary prevention initiated with aspirin and statin. -Neurologist on consult. PT/ST/OT. -Echo with bubble study completed. No evidence of PFO -Inpatient rehab evaluation #Productive cough-no leukocytosis and afebrile. -CXR. IS -hold abx. check sputum culture. #Hypertension - currently BP normotensive -permissive hypertension unless otherwise by neurologist. DVT - scds Dispo- inpatient rehab pending evaluation
--- NOTE | 2019-04-27 15:16 | RAD REPORT ---
EXAM DESCRIPTION: RAD - Chest Single View - 04/27/2019 3:06 pm CLINICAL HISTORY: fever COMPARISON: Chest Single View dated 04/25/2019; Chest Single View dated 04/20/2019None. TECHNIQUE: AP portable chest image was obtained 04/27/2019 3:06 pm . FINDINGS: Lung volumes are low similar to comparison. No peripheral mass consolidation. Hiatal herni a is evident. Lung base scarring and/ or atelectasis present medial left base. Heart and vasculature are normal. No measurable pleural effusion and no pneumothorax. No acute bony abnormality seen. No ac mandi aortic findings suspected. IMPRESSION: Chronic chest findings are present as detailed. No pneumonia, failure or other acute finding seen.
[2019-04-27] MEDS: ATORVASTATIN 20 MG TAB PO SCH (20:58)
[2019-04-28] MEDS: NA CHLORIDE 0.9% 1,000 ML IV SCH (03:01)
[2019-04-28 06:01] LABS: Protime INR 1.16
[2019-04-28] MEDS: ASPIRIN EC 81 MG TAB PO SCH (09:38)
[2019-04-28] MEDS: CARBIDOPA/LEVODOPA 25/100 TAB PO SCH ×4 (09:38→20:35)
[2019-04-28] MEDS: FOLIC ACID 1 MG TABLET PO SCH (09:38)
[2019-04-28] MEDS: ATORVASTATIN 20 MG TAB PO SCH (20:35)
[2019-04-29 05:46] LABS: Protime INR 1.19
[2019-04-29] MEDS: CARBIDOPA/LEVODOPA 25/100 TAB PO SCH ×4 (08:50→22:02)
[2019-04-29] MEDS: ASPIRIN EC 81 MG TAB PO SCH (08:50)
[2019-04-29] MEDS: FOLIC ACID 1 MG TABLET PO SCH (08:50)
--- NOTE | 2019-04-29 10:52 | P.PN ---
Subjective Date of Service: 04/28/19 Chief Complaint: aphasia and decreased cognition Subjective: No new changes (No change patient stable no new complaints awaiting transfer) Review of Systems Unremarkable Physical Examination - Vital Signs Temperature: 97.9 F Blood Pressure: 155/82 Pulse: 72 Respirations: 18 Pulse Ox (%): 92 - Physical Exam General: Alert, Oriented x3, Cooperative Respiratory: Clear to auscultation bilaterally Cardiovascular: No edema, Regular rate/rhythm - Studies Medications List Reviewed: Yes Assessment & Plan - Problems (Diagnosis) (1) Stroke Current Visit: Yes Status: Acute Plan: Patient is 83 years of age admitted following a new stroke his add multiple strokes in the past hemodynamically stable no progression eating and drinking no new complaints final signs all stable Qualifiers: Laterality of affected vessel: left
[2019-04-29] MEDS ORDERED: lisinopriL 10 MG TAB PO SCH (10:54)
--- NOTE | 2019-04-29 10:55 | P.PN ---
Subjective Date of Service: 04/29/19 Chief Complaint: aphasia and decreased cognition Subjective: Improving (No new change no new complaints caregiver at the bedside slight nasal bleeding) Review of Systems Unremarkable Physical Examination - Vital Signs Temperature: 97.9 F Blood Pressure: 155/82 Pulse: 72 Respirations: 18 Pulse Ox (%): 92 - Physical Exam General: Alert, In no apparent distress, Oriented x3 Respiratory: Clear to auscultation bilaterally Cardiovascular: No edema, Regular rate/rhythm Neurological: Abnormal speech - Studies Medications List Reviewed: Yes Assessment & Plan - Problems (Diagnosis) (1) Stroke Current Visit: Yes Status: Acute Plan: Patient admitted following a new stroke clinically stable awaiting transfer to rehab vital signs medications reviewed no change blood pressure is mildly elevated I have added a small dose of lisinopril Qualifiers: Laterality of affected vessel: left
[2019-04-29] MEDS: ATORVASTATIN 20 MG TAB PO SCH (22:02)
[2019-04-30 05:54] LABS: Protime INR 1.19
[2019-04-30 06:27] LABS: Urine Appearance CLEAR; Urine Bilirubin NEGATIVE (NEG); Urine Blood NEGATIVE (NEG); Urine Color YELLOW; Urine Glucose NEGATIVE (NEG); Urine Protein NEGATIVE (NEG); Urine Specific Gravity 1.015 (1.005-1.030)
[2019-04-30 06:28] LABS: Urine Microscopic Reflex NO UMIC
[2019-04-30] MEDS ORDERED: lisinopriL 5 MG TAB PO SCH ×2 (09:00→11:25)
[2019-04-30] MEDS ORDERED: lisinopriL 10 MG TAB PO SCH (09:00)
[2019-04-30] MEDS: ASPIRIN EC 81 MG TAB PO SCH (09:29)
[2019-04-30] MEDS: CARBIDOPA/LEVODOPA 25/100 TAB PO SCH ×4 (09:29→21:42)
[2019-04-30] MEDS: FOLIC ACID 1 MG TABLET PO SCH (09:29)
[2019-04-30] MEDS ORDERED: ACETAMINOPHEN 500 MG TAB PO PRN (11:18)
[2019-04-30] MEDS ORDERED: TRAMADOL HCL 50 MG TAB PO PRN (11:18)
--- NOTE | 2019-04-30 11:24 | P.PN ---
Subjective Date of Service: 04/30/19 Primary Care Provider: Unknown Chief Complaint: aphasia and decreased cognition Subjective: Other (Patient reports some mild pain to the knees. Patient overall stable. Caregiver at bedside.) Physical Examination - Vital Signs Temperature: 98.2 F Blood Pressure: 135/74 Pulse: 67 Respirations: 16 Pulse Ox (%): 94 - Physical Exam General: Alert, In no apparent distress, Oriented x3, Cooperative HEENT: Atraumatic Neck: Supple Respiratory: Clear to auscultation bilaterally, Normal air movement Cardiovascular: Normal pulses, Regular rate/rhythm Musculoskeletal: Other (Right-sided weakness noted.) Neurological: Normal affect, Abnormal strength (Right-sided weakness) - Studies Medications List Reviewed: Yes Assessment & Plan Discharge Plan: Other (Inpatient rehab versus skilled placement) Plan to discharge in: 24 Hours Physician Review Additional Text: Impression: Acute small 12 mm nonhemorrhagic acute infarct in the posterior limb internal capsule on the left with history of CVA now with right-sided weakness and articulation Hyperlipidemia Hypertension Parkinson's Plan: Acute small 12 mm nonhemorrhagic acute infarct in the posterior limb internal capsule on the left with history of CVA now with right-sided weakness and articulation: Notes reviewed. Patient on aspirin. Will add Plavix as recommended by Neurology. Continue with DVT prophylaxis-Lovenox. Continue with folic acid and statin medication. Continue with physical therapy. Await to see if patient will qualify for inpatient rehab verses skilled placement. Will provide medication for pain. Will discuss with family about plan of care. Hyperlipidemia: Continue with statin medication. Hypertension: Continue with blood pressure medication-lisinopril. Parkinson's: Continue with medication. Time Spent Managing Pts Care (In Minutes): 55
[2019-04-30] MEDS: CLOPIDOGREL 75 MG TABLET PO SCH (12:00)
[2019-04-30] MEDS: ENOXAPARIN 40 MG/0.4 ML SQ SCH (17:10)
[2019-04-30] MEDS: ATORVASTATIN 20 MG TAB PO SCH (21:42)
[2019-05-01 05:51] LABS: Absolute Lymphocytes (CBC) 1.1 K/uL (0.7-4.9); Basophils % 0.5 % (0-1.3); Hematocrit 34.2 % (39.6-49.0); Lymphocytes % 15.8 % (15.3-44.8); MPV 7.6 fL (7.6-11.3); RBC Red Blood Cell Count 3.58 M/uL (4.33-5.43)
[2019-05-01 06:32] LABS: Magnesium 2.2 mg/dL (1.8-2.4); Potassium 4.2 mmol/L (3.5-5.1)
[2019-05-01] MEDS: ASPIRIN EC 81 MG TAB PO SCH (09:46)
[2019-05-01] MEDS: CARBIDOPA/LEVODOPA 25/100 TAB PO SCH ×3 (09:46→16:59)
[2019-05-01] MEDS: FOLIC ACID 1 MG TABLET PO SCH (09:47)
[2019-05-01] MEDS: CLOPIDOGREL 75 MG TABLET PO SCH (09:47)
[2019-05-01 11:23] VITALS: O2SAT 93
--- NOTE | 2019-05-01 14:20 | P.PN ---
Subjective Date of Service: 05/01/19 Primary Care Provider: Unknown Chief Complaint: aphasia and decreased cognition Subjective: Improving, Doing well Physical Examination - Vital Signs Temperature: 99.0 F Blood Pressure: 104/70 Pulse: 95 Respirations: 17 Pulse Ox (%): 95 - Physical Exam General: Alert, In no apparent distress, Oriented x3, Cooperative HEENT: Atraumatic Neck: Supple Respiratory: Clear to auscultation bilaterally, Normal air movement Cardiovascular: Normal pulses, Regular rate/rhythm Neurological: Abnormal strength (Still with right sided weakness) - Studies Medications List Reviewed: Yes Assessment & Plan Discharge Plan: Other (Inpatient rehab) Plan to discharge in: 24 Hours Physician Review Additional Text: Impression: Acute small 12 mm nonhemorrhagic acute infarct in the posterior limb internal capsule on the left with history of CVA now with right-sided weakness and articulation Hyperlipidemia Hypertension Parkinson's Plan: Acute small 12 mm nonhemorrhagic acute infarct in the posterior limb internal capsule on the left with history of CVA now with right-sided weakness and articulation: Patient still with right-sided weakness. Improvement noted. Daughter at bedside. Patient currently on aspirin, Plavix, folic acid, and statin medication. Continue with DVT prophylaxis. Continue with physical therapy and occupational therapy. Awaiting to see if patient will qualify for inpatient rehab. Spoke with physical therapy today. Patient would benefit highly with inpatient rehab. If denied family desires the patient to go back to assisted living with caregiver and home health/physical therapy. I will turn the service over to the hospitalist team tomorrow. I will go over the plan of care with them. Hyperlipidemia: Continue with statin medication. Hypertension: Continue with blood pressure medication-lisinopril. May need to hold blood pressure medication if systolic less than 140. Will continue to slowly adjust. Parkinson's: Continue with medication. Time Spent Managing Pts Care (In Minutes): 55
--- NOTE | 2019-05-01 16:42 | P.DS ---
Admission Date: 04/26/19 Discharge Date: 05/01/19 Primary Care Provider: Unknown Disposition: TRANSFER TO INPATIENT REHAB Discharge Condition: GOOD Reason for Admission: aphasia and decreased cognition Consultations: Neurology-Dr. Pichardo Procedures: MRI Brain: COMPARISON: CT head April 25, MR brain April 16 TECHNIQUE: Sagittal and axial T1-weighted images were obtained. Axial PD/ heavily T2-weighted and T2-FLAIR images were obtained along with axial DWI/ADC mapping sequences. Coronal heavily T2 weighted sequence obtained. Axial and coronal post-contrast T1-weighted images were also obtained. A 15 ml Multihance contrast following utilized. FINDINGS: Approximately 12 mm area of abnormal diffusion signal is present in the posterior limb internal capsule on the left. There is corresponding decreased signal on ADC mapping. Corresponding T2 signal abnormality present on T2/IR sequencing. There is no edema or shift of midline structures. No extra- axial fluid collections. Nj-matter/white matter junction is preserved. Signal voids are seen as a normal finding in the major intracranial vessels. Patient has prominent chronic ischemic change in the cerebral white matter. Moderate atrophy changes are present. Ventricles are in proportion. Post-contrast images show normal enhancement. No dural thickening. Mastoid air cells and paranasal sinuses are clear. No globe or orbital content abnormality. IMPRESSION: Small 12 mm nonhemorrhagic acute infarction in the posterior limb internal capsule on the left. Patient has moderate atrophy and prominent chronic ischemic change matching prior imaging. ECHO: LEFT VENTRICULAR WALL MOTION: NORMAL. DOPPLER/COLOR FLOW: NORMAL. COMMENTS: NORMAL 2D ECHO. NO EVIDENCE OF ATRIAL SEPTAL DEFECT. TECHNICALLY DIFFICULT STUDY. CXR: COMPARISON: Chest Single View dated 04/25/2019; Chest Single View dated 2019None. TECHNIQUE: AP portable chest image was obtained 04/27/2019 3:06 pm . FINDINGS: Lung volumes are low similar to comparison. No peripheral mass consolidation. Hiatal hernia is evident. Lung base scarring and/ or atelectasis present medial left base. Heart and vasculature are normal. No measurable pleural effusion and no pneumothorax. No acute bony abnormality seen. No acute aortic findings suspected. IMPRESSION: Chronic chest findings are present as detailed. No pneumonia, failure or other acute finding seen. Medical Problem List: Acute small 12 mm nonhemorrhagic acute infarct in the posterior limb internal capsule on the left with history of CVA now with right-sided weakness and articulation Hyperlipidemia Hypertension Parkinson's Brief History of Present Illness: 83-year-old male with history of prior TIA, hypertension and small- vessel cerebral ischemic disease with Parkinson's. Patient was recently admitted about 2 weeks ago to the hospital for aphasia and difficulty with his articulation and poor balance. At the time brain CT and MRI were negative for acute stroke. Workup did not reveal any carotid blockage or AFib. He presented to the emergency room with slurred speech, confusion with his expression and a fall. He was found to have right-sided weakness. CT scan unremarkable. Patient was admitted for further evaluation. Hospital Course: Patient presented with weakness, slurred speech and difficulty with articulation. Patient was admitted for further evaluation. Patient found to have acute small 12 mm nonhemorrhagic acute infarct in the posterior limb internal capsule on the left. Patient with history of TIA. Patient also was found to have right-sided weakness. Patient was evaluated by neurology. Neurology recommended aspirin, Plavix, folic acid and statin medication. DVT prophylaxis was initiated. Patient has done well during the course of his stay. Patient has been evaluated by physical therapy and occupational therapy. They are recommending inpatient rehab. At discharge patient has been accepted to inpatient rehab. Patient will continue with inpatient rehab. Patient will continue with aspirin 81 mg daily, Plavix 75 mg daily, folic acid 1 mg daily, and Lipitor 20 mg daily. Patient may continue with DVT prophylaxis at inpatient rehab. Patient with history of hypertension. Blood pressure has remained stable off medication. Patient was on lisinopril. Will need to consider restarting lisinopril if blood pressure remains elevated. Patient with history of Parkinson's. At discharge he will continue with his medication. Patient found to have hyperlipidemia. LDL elevated at 105. Patient has been started on Lipitor. Patient will continue with Lipitor 20 mg daily. Patient was evaluated by speech therapy. Patient found to have moderate pharyngeal dysphagia. Patient currently on mechanical diet. Will continue with speech recommendation. Vital Signs/Physical Exam: Temp Pulse Resp BP Pulse Ox 99.0 F 95 H 17 104/70 95 05/01/19 14:20 05/01/19 14:20 05/01/19 14:20 05/01/19 14:20 05/01/19 14:20 General: Alert, In no apparent distress, Oriented x3 HEENT: Atraumatic Neck: Supple Respiratory: Clear to auscultation bilaterally, Normal air movement Cardiovascular: Normal pulses, Regular rate/rhythm Gastrointestinal: Normal bowel sounds, Soft and benign, Non-distended Neurological: Normal speech, Abnormal strength (Weakness to the right side still noted. Some improvement noted) Laboratory Data at Discharge: WBC 6.7 K/uL (4.3-10.9) 05/01/19 05:19 Hgb 11.7 g/dL (13.6-17.9) L 05/01/19 05:19 Hct 34.2 % (39.6-49.0) L 05/01/19 05:19 Plt Count 235 K/uL (152-406) D 05/01/19 05:19 PT 13.9 SECONDS (9.5-12.5) H 04/30/19 05:19 INR 1.19 04/30/19 05:19 APTT 24.8 SECONDS (24.3-36.9) 04/25/19 17:46 Sodium 137 mmol/L (136-145) 05/01/19 05:19 Potassium 4.2 mmol/L (3.5-5.1) 05/01/19 05:19 BUN 18 mg/dL (7-18) 05/01/19 05:19 Creatinine 0.91 mg/dL (0.55-1.3) 05/01/19 05:19 Glucose 115 mg/dL (74-106) H 05/01/19 05:19 Magnesium 2.2 mg/dL (1.8-2.4) 05/01/19 05:19 Total Bilirubin 0.8 mg/dL (0.2-1.0) 04/26/19 05:52 AST 11 U/L (15-37) L 04/26/19 05:52 ALT 14 U/L (12-78) 04/26/19 05:52 Alkaline Phosphatase 81 U/L (45-117) 04/26/19 05:52 Troponin I < 0.02 ng/mL (0.0-0.045) 04/26/19 13:50 Triglycerides 45 mg/dL (<150) 04/26/19 05:52 Cholesterol 175 mg/dL (<200) 04/26/19 05:52 HDL Cholesterol 61 mg/dL (40-60) H 04/26/19 05:52 Cholesterol/HDL Ratio 2.87 04/26/19 05:52 Home Medications: Carbidopa/Levodopa [Carbidopa-Levo 25-100 mg Odt] 1 each PO QID 04/16/19 Turmeric Root Extract [Turmeric] 1 cap PO DAILY 04/16/19 Aspirin Chewable [Aspirin Chewable*] 81 mg PO DAILY #60 tab.chew 04/17/19 Atorvastatin Calcium [Lipitor*] 20 mg PO BEDTIME #30 tab 05/01/19 Clopidogrel Bisulfate [Plavix*] 75 mg PO DAILY #30 tablet 05/01/19 Folic Acid 1 mg PO DAILY #90 tablet 05/01/19 New Medications: Atorvastatin Calcium [Lipitor*] 20 mg PO BEDTIME #30 tab Clopidogrel Bisulfate [Plavix*] 75 mg PO DAILY #30 tablet Folic Acid 1 mg PO DAILY #90 tablet Patient Discharge Instructions: 1. Patient will be transferred to inpatient rehab. 2. Patient presented with weakness, slurred speech and difficulty with articulation. Patient was admitted for further evaluation. Patient found to have acute small 12 mm nonhemorrhagic acute infarct in the posterior limb internal capsule on the left. Patient with history of TIA. Patient also was found to have right-sided weakness. Patient was evaluated by neurology. Neurology recommended aspirin, Plavix, folic acid and statin medication. DVT prophylaxis was initiated. Patient has done well during the course of his stay. Patient has been evaluated by physical therapy and occupational therapy. They are recommending inpatient rehab. At discharge patient has been accepted to inpatient rehab. Patient will continue with inpatient rehab. Patient will continue with aspirin 81 mg daily, Plavix 75 mg daily, folic acid 1 mg daily, and Lipitor 20 mg daily. Patient may continue with DVT prophylaxis at inpatient rehab. 3. Patient with history of hypertension. Blood pressure has remained stable off medication. Patient was on lisinopril. Will need to consider restarting lisinopril if blood pressure remains elevated. 4. Patient with history of Parkinson's. At discharge he will continue with his medication. 5. Patient found to have hyperlipidemia. LDL elevated at 105. Patient has been started on Lipitor. Patient will continue with Lipitor 20 mg daily. 6. Patient was found to have moderate pharyngeal dysphagia. Patient will continue with mechanical diet. Will continue with speech recommendations. Diet: Mechanical soft Activity: Fall precautions Time spent managing pt's care (in minutes): 55
[2019-05-01] MEDS: ENOXAPARIN 40 MG/0.4 ML SQ SCH (17:00)
[2019-05-01 17:28] VITALS: BP 119/72; TEMP 98.7
[2019-05-02] MEDS ORDERED: lisinopriL 5 MG TAB PO SCH (09:00)
== END 2019-05-01 18:53 | DRG 65 ==
LOC: ER 17:20 → 2ND 20:31 → OBSVTOIN 04-26 16:12
PROVIDERS: ADMIT Internal Medicine; ATTEND Internal Medicine
DX: I63.9 Cerebral infarction, unspecified (principal); G81.91 Hemiplegia, unspecified affecting right dominant side; R47.81 Slurred speech; I10 Essential (primary) hypertension; R29.706 NIHSS score 6; G20 Parkinson's disease; E78.5 Hyperlipidemia, unspecified; R47.01 Aphasia; Z86.73 Personal history of transient ischemic attack (TIA), and cerebral infarction without residual deficits; Z23 Encounter for immunization
CPT/HCPCS: 36415; 70450; 70553; 71045; 74230; 80048; 80053; 80061; 81003; 82553; 82947; 83036; 83735; 84443; 84484; 85025; 85610; 85652; 85730; 87804; 90471; 92526; 92610; 92611; 93005; 93306; 97110; 97112; 97116; 97161; 97530; 97542; 99285; A9577; G0378; J1650; J7030; Q2035

== ENCOUNTER 2019-05-01 15:45 | Inpatient (IN) | payer OTHER ==
--- NOTE | 2019-05-01 16:43 | R.PREADM ---
SCREENING DATE AND TIME 05/01/2019 15:49 (COLLAR SEWER) ANTICIPATED REHAB ADMISSION DATE 05/03/2019 REFERRING FACILITY [facility] REFERRAL DATE AND TIME 05/01/2019 15:49 (COLLAR SEWER) REFERRAL ROOM# 225 ACUTE ADMIT DATE 04/25/2019 Previous Rehabilitation(s): No. 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 River Pichardo M.D. MR# [id number] NAME KAIDEN RIVAS ADDRESS [address] [place] [address] PHONE [facility] [id number] DATE OF 1935 AGE 83 SSN# [id number] GENDER male MARITAL STATUS RACE white ADMIT FROM 02 - [facility] PRE-HOSPITAL LIVING SETTING 01 - Home (private home/apt. board/care, assisted living, retirement, transitional living) HOME TYPE AND DETAILS Type of home: Independent living # of levels in the residence: 1 # of steps to enter the residence: 0 # of steps within the residence: 0 PRE-HOSPITAL LIVING WITH Attendant FAMILY SUPPORT Yes PRIMARY FAMILY CONTACT NAME Karely Walker PRIMARY FAMILY CONTACT PHONE PRIMARY FAMILY CONTACT RELATIONSHIP Daughter PHONE PRIMARY FAMILY CONTACT ON ADM.? no IS PRIMARY FAMILY CONTACT AUTH. REP.? no 1ST EMERGENCY CONTACT Karely Walker 1ST CONTACT PHONE 1ST CONTACT RELATIONSHIP Daughter PHONE 1ST CONTACT ON ADM. no IS 1ST CONTACT AUTH. REP.? no PHONE 2ND CONTACT ON ADM.? no PATIENT EMPLOYMENT STATUS Retired (for age) PATIENT EMPLOYER No Employer PAYOR INFORMATION: 1ST PAYOR NAME Silvina VALENTIN 1ST PAYOR PHONE [phone] 1ST PAYOR POLICY ID [id number] INJURY/ILLNESS DUE TO ACCIDENT? No ANOTHER LIBERTARIAN RESPONSIBLE? No PRIMARY REHAB/ACUTE DIAGNOSIS: Nonhemorrhagic Acute Infarction in the Posterior Limb Internal Capsule on the left Parkinsons Disease ONSET DATE 04/25/2019 REHAB IMPAIRMENT CATEGORY (REE): 01 Stroke (STR) MEETS 60% rule AFFECTED EXTREMITIES: RLE, and RUE PRIMARY DIAGNOSIS-RELATED SURGERIES: NONE COMORBID REHAB/ACUTE DIAGNOSES: - N/A HTN PARKINSON'S DISEASE SUMMARY OF ACUTE HOSPITALIZATION: Pt. is a 83 yo Right-handed white male. On 04/25/2019 Pt. presented to [facility] with sudden onset of right-side weakn ess. On 04/25/2019 he was admitted to [facility] with diagnosis Nonhemorrhagic Acute Infarction in the Posterior Limb Internal Capsule on the left . His impairment category is Stroke 01 - Right Body (Left Brain) (01.2). Pre-morbidly, Pt. was independent/mod-I in Locomotion, Safety Awareness, Balance, Social Cognition, T ransfers Control, Sphincter Control, Communication, Endurance, and Self-Care; and he had good Locomot ion, Safety Awareness, Balance, Social Cognition, Transfers Control, Sphincter Control, Self-Care, Co mmunication, and Endurance. Currently, he has deficits of Locomotion, Balance, Safety Awareness, Transfers Control, Social Cognit ion, Sphincter Control, Self-Care, Communication, and Endurance. Pt. is now referred to [facility] for acute in-patient rehabilitation in order to maximize patient's functional independence in activities of daily living, strength, ROM, and mobi lity. Patient has realistic goal of being discharged at assistance level 6-Marlon to reside at Home with Att endant. Kaiden Rivas is an 83 year old male that lives in an independent living and has a caregiver from 10am-4pm. Patient receives assistance for his bathing from his caregiver. On 04/17/2019, patient went to ER with worsening confusion and aphasia and CT head was unremarkable and was discharged on Tuesday. He fell on Tuesday and had a fluctuating cognitive interaction and was admitted to [facility] and treated. He is now medically stable but in need of 24-hour nursing, doctor supervision and oversite while receiving acti ve and ongoing intensive (PT, reasonably expected to participate in 3hours of therapy a day/15 hours per week and receive care with an intensive interdisciplinary approach. CONSULT: Neuro consult PAST MEDICAL HISTORY HTN PARKINSON'S DISEASE PAST SURGICAL HISTORY: N/A MEDICATION ALLERGIES: No Known Drug Allergies (NKDA) ENVIRONMENTAL ALLERGIES: None Known - Substance Allergies None Known - Other Allergies None Known CODE STATUS: Full code WEIGHT/HEIGHT/BMI: WEIGHT 150 lbs HEIGHT 5' 6" BMI 24.2 DIET: - Diet Type Regular - Diet - Solid Texture Mechanical Soft - Diet - Liquid Texture Thin - Tube Feed N/A REVIEW OF SYSTEMS: - Gen Alert and awake Lying in bed No apparent distress Oriented to: person, time, and place - Vital Signs Temperature: 99 F SBP/DBP: 104/70 Pulse: 95 Resp: 17 Vital signs stable, afebrile - CVS RRR VITAL SIGNS Temperature: 99 F SBP/DBP: 104/70 Pulse: 95 Resp: 17 Vital signs stable, afebrile MEDICATIONS/TREATMENT: Other- See attached MAR (Medication Administration Record). CURRENT SPHINCTER CONTROL: Pre-hospital bladder status: unspecified # of bladder accidents in the last 7 days prior to screenin Pre-hospital bowel status: unspecified # of bowel accidents in the last 7 days prior to screenin Last Bowel Movement Date: 05/01/2019 CURRENT LOCOMOTION STATUS: distance traveled in wheelchair 22 feet distance walked 12 feet DETAILED CURRENT FUNCTIONAL STATUS: - Bladder accident frequency: Ind - No accidents in the past 7 days - Bowel accident frequency: Ind - No accidents in the past 7 days - Walking score based on distance walked: 0(N/A) score based on distance walked: 1(<=50ft) - Wheelchair score based on distance traveled: 0(N/A) QI SCORES: - Self-Care A. Eating 05-Setup or clean-up assistance B. Oral hygiene 05-Setup or clean-up assistance C. Toileting hygiene 03-Partial/moderate assistance E. Shower/bathe self 03-Partial/moderate assistance F. Upper body dressing 03-Partial/moderate assistance G. Lower body dressing 03-Partial/moderate assistance H. Putting on/taking off footwear 02-Substantial/maximal assistance - Mobility A. Roll left and right 03-Partial/moderate assistance B. Sit to lying 03-Partial/moderate assistance C. Lying to sitting on side of bed 03-Partial/moderate assistance D. Sit to stand 03-Partial/moderate assistance E. Chair/obn-xb-bjwbu transfer 03-Partial/moderate assistance F. Toilet transfer 03-Partial/moderate assistance G. Car transfer 10-Not attempted due to environmental limitations I. Walk 10 feet 02-Substantial/maximal assistance J. Walk 50 feet with two turns 88-Not attempted due to medical condition or safety concerns K. Walk 150 feet 88-Not attempted due to medical condition or safety concerns L. Walking 10 feet on uneven surfaces 88-Not attempted due to medical condition or safety concerns M. 1 step (curb) 88-Not attempted due to medical condition or safety concerns N. 4 steps 88-Not attempted due to medical condition or safety concerns O. 12 steps 88-Not attempted due to medical condition or safety concerns P. Picking up object 88-Not attempted due to medical condition or safety concerns R. Wheel 50 feet with two turns 88-Not attempted due to medical condition or safety concerns S. Wheel 150 feet 88-Not attempted due to medical condition or safety concerns - Bladder and Bowel Bladder continence 0-Always continent Bowel continence 0-Always continent - Endurance Fair - Balance Fair - Safety Awareness Fair CURRENT FUNC. DEFICITS: Self-Care, Mobility, Endurance, Balance, and Safety Awareness CURRENT / PREVIOUS ASSISTIVE DEVICES: 3-in-1 Commode BSC Dentures Glasses Hearing Aid(s) Hospital Bed Rolling Walker Shower Chair Standard Walker Tub Bench Wheelchair HISTORY OF FALLS. HAS THE PATIENT HAD TWO OR MORE FALLS IN THE PAST YEAR OR ANY FALL WITH INJURY IN T HE PAST YEAR?: No PRIOR SURGERY. DID THE PATIENT HAVE MAJOR SURGERY DURING THE 100 DAYS PRIOR TO ADMISSION?: No THERAPY NOTES FROM ACUTE CARE: Attached. SPECIAL NEEDS: - Safety Concerns Skin breakdown precautions needed due to skin breakdown risk PRECAUTIONS: - Weight Bearing Precaution WBAT right LE PATIENT NEEDS ACTIVE AND ONGOING THERAPEUTIC INTERVENTION OF MULTIPLE THERAPY DISCIPLINES, INCLUDING: - Occupational Therapy Cognitive Retraining. Visual Perceptual Training. - Dietary and Nutrition Adequate Nutrition. Nutritional Education. Nutritional Supplements. - Speech Therapy Cognitive Training. Dysphagia Therapy. Expressive Language Skills. Memory Strategies. Receptive Langu age Skills. Speech Intelligibility Training. PATIENT NEEDS CLOSE MEDICAL SUPERVISION BY A REHABILITATION PHYSICIAN FOR: Coordination of Treatment Team Medical and Co-Morbidity Management PATIENT REQUIRES 24X7 REHAB NURSING FOR MEDICAL AND FUNCTIONAL MGT. OF THE FOLLOWING DEFICITS: Disease Management Medication Management Patient/Family Education Providing Safe Environment PATIENT REQUIRES INTENSIVE, COORDINATED INTERDISCIPLINARY APPROACH TO REHAB: Arranging Home Equipment/Services Discharge Planning Family Intervention/Training Residential Program Coordinator/Case Management PATIENT REHAB POTENTIAL: Sarath RIVAS is able and expected to receive 3 hours of individualized therapy daily on at least 5 of ever y 7 days JoniMarty RIVAS's prognosis for significant practical improvement within a reasonable period of time appears Good Expected level of measurable improvement will be of a practical value to Sarath RIVAS's functional capacit y or adaptations to impairments Has a viable Discharge Plan Medically appropriate; condition is sufficiently stable to participate in intensive rehab program DISCHARGE PLAN: - Estimated Length of Stay (days) 17. - Consensus on plan Discharge plan has been discussed with primary caregiver. Patient/Family is in agreement with the sneha n. Primary caregiver is in agreement with the plan. - Patient/Family Goals Return home with assistance. - Planned Living Setting Upon Discharge Home, to live with Attendant. Transitional Living. Primary caregiver: Attendant. RECOMMENDED CARE LEVEL: IRF RECOMMENDATION DETAILS: Recommended Admission to Comprehensive Rehabilitation Program to Increase Functional [place] SCREENER'S COMPLETENESS CONFIRMATION: - Screening Confirmation The patient data collection on this preadmission screening form is finished PHYSICIANS REVIEW AND ADMISSION DETERMINATION Admit - Based on my review of the Pre-Admission Screening results, in my medical judgment and experie nce, I concur with the findings and recommend admission to [facility], as this patient requires an IRF level of care. SIGNATURE PANEL: Clinical Liaison - [electronically] signed by Yokasta Martinez on 05/01/2019 at 16:22 (COLLAR SEWER) Physician Reviewer - [electronically] signed by Dr. River Pichardo M.D. on 05/01/2019 at 16:42 (COLLAR SEWER )
--- OUTSIDE RECORDS SUMMARY | 2019-05-01 19:13 | XMS REPORT ---
[...] Medications Results No Known Results Summary Purpose [email or web address] Submission
--- OUTSIDE RECORDS SUMMARY | 2019-05-01 19:13 | XMS REPORT ---
[...] Start End Date Status Dosage Date Carbidopa-Levod [facility] [id number] 25-100 MG Oral Active 1 tablet opa 9-10 QID Results No Known Results Summary Purpose [employer] Submission
--- OUTSIDE RECORDS SUMMARY | 2019-05-01 19:13 | XMS REPORT ---
:1935 Author Organization [employer] Care Team Providers Name Role Phone Ben [...] Medications Results No Known Results Summary Purpose [employer] Submission
[2019-05-01] MEDS: CARBIDOPA/LEVODOPA 25/100 TAB PO SCH (20:34)
[2019-05-01] MEDS: ATORVASTATIN 20 MG TAB PO SCH (20:41)
[2019-05-02 06:49] LABS: Absolute Lymphocytes (CBC) 1.1 K/uL (0.7-4.9); Basophils % 1.2 % (0-1.3); Hematocrit 36.2 % (39.6-49.0); Lymphocytes % 18.6 % (15.3-44.8); RBC Red Blood Cell Count 3.76 M/uL (4.33-5.43)
[2019-05-02 07:16] LABS: Magnesium 2.4 mg/dL (1.8-2.4); Potassium 4.4 mmol/L (3.5-5.1); Prealbumin 11.3 mg/dL (20-40)
[2019-05-02] MEDS ORDERED: ENOXAPARIN 40 MG/0.4 ML SQ SCH (08:00)
[2019-05-02] MEDS ORDERED: HOME MED 1 EA UNK PO SCH (08:00)
[2019-05-02] MEDS: CARBIDOPA/LEVODOPA 25/100 TAB PO SCH ×4 (08:27→20:37)
[2019-05-02] MEDS: FOLIC ACID 1 MG TABLET PO SCH (08:27)
[2019-05-02] MEDS: ASPIRIN 81 MG CHEWABLE TABLET PO SCH (08:27)
[2019-05-02] MEDS: CLOPIDOGREL 75 MG TABLET PO SCH (08:27)
[2019-05-02] MEDS: ENOXAPARIN 40 MG/0.4 ML SQ SCH (16:15)
--- NOTE | 2019-05-02 16:55 | FAST ---
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 River Pichardo M.D. ADMISSION DIAGNOSIS: - Stroke 01 - Right Body (Left Brain) (01.2) Nonhemorrhagic Acute Infarction in the Posterior Limb Internal Capsule on the left . - Neurologic Conditions 03 - Parkinsonism (03.2) Parkinsons Disease. ROLL LEFT AND RIGHT: ROLL LEFT AND RIGHT - STEP 1: Does the patient complete the activity by him/herself with no assistance (physical, verbal/nonverbal cueing, setup/clean-up)? No. ROLL LEFT AND RIGHT - STEP 2: Does the patient need only setup/clean-up assistance from one helper? No. ROLL LEFT AND RIGHT - STEP 3: Does the patient need only verbal/nonverbal cueing or touching/steadying/contact guard assistance fro m one helper? No. ROLL LEFT AND RIGHT - STEP 4: Does the patient need physical assistance - for example lifting or trunk support from one helper - wi th the helper providing less than half of the effort? Yes. 1. [id number] ADMISSION PERFORMANCE: Partial/moderate assistance CODE: 03 SIT TO LYING: SIT TO LYING - STEP 1: Does the patient complete the activity by him/herself with no assistance (physical, verbal/nonverbal cueing, setup/clean-up)? No. SIT TO LYING - STEP 2: Does the patient need only setup/clean-up assistance from one helper? No. SIT TO LYING - STEP 3: Does the patient need only verbal/nonverbal cueing or touching/steadying/contact guard assistance fro m one helper? No. SIT TO LYING - STEP 4: Does the patient need physical assistance - for example lifting or trunk support from one helper - wi th the helper providing less than half of the effort? Yes. 1. [id number] ADMISSION PERFORMANCE: Partial/moderate assistance CODE: 03 LYING TO SITTING: LYING TO SITTING ON SIDE OF BED - STEP 1: Does the patient complete the activity by him/herself with no assistance (physical, verbal/nonverbal cueing, setup/clean-up)? No. LYING TO SITTING ON SIDE OF BED - STEP 2: Does the patient need only setup/clean-up assistance from one helper? No. LYING TO SITTING ON SIDE OF BED - STEP 3: Does the patient need only verbal/nonverbal cueing or touching/steadying/contact guard assistance fro m one helper? No. LYING TO SITTING ON SIDE OF BED - STEP 4: Does the patient need physical assistance - for example lifting or trunk support from one helper - wi th the helper providing less than half of the effort? Yes. 1. [id number] ADMISSION PERFORMANCE: Partial/moderate assistance CODE: 03 SIT TO STAND: SIT TO STAND - STEP 1: Does the patient complete the activity by him/herself with no assistance (physical, verbal/nonverbal cueing, setup/clean-up)? No. SIT TO STAND - STEP 2: Does the patient need only setup/clean-up assistance from one helper? No. SIT TO STAND - STEP 3: Does the patient need only verbal/nonverbal cueing or touching/steadying/contact guard assistance fro m one helper? No. SIT TO STAND - STEP 4: Does the patient need physical assistance - for example lifting or trunk support from one helper - wi th the helper providing less than half of the effort? Yes. 1. [id number] ADMISSION PERFORMANCE: Partial/moderate assistance CODE: 03 TRANSFERS: BED, CHAIR: CHAIR/[id number] TRANSFER - STEP 1: Does the patient complete the activity by him/herself with no assistance (physical, verbal/nonverbal cueing, setup/clean-up)? No. CHAIR/[id number] TRANSFER - STEP 2: Does the patient need only setup/clean-up assistance from one helper? No. CHAIR/[id number] TRANSFER - STEP 3: Does the patient need only verbal/nonverbal cueing or touching/steadying/contact guard assistance fro m one helper? No. CHAIR/[id number] TRANSFER - STEP 4: Does the patient need physical assistance - for example lifting or trunk support from one helper - wi th the helper providing less than half of the effort? Yes. 1. [id number] ADMISSION PERFORMANCE: Partial/moderate assistance CODE: 03 TRANSFER TOILET: TOILET TRANSFER - STEP 1: Does the patient complete the activity by him/herself with no assistance (physical, verbal/nonverbal cueing, setup/clean-up)? No. TOILET TRANSFER - STEP 2: Does the patient need only setup/clean-up assistance from one helper? No. TOILET TRANSFER - STEP 3: Does the patient need only verbal/nonverbal cueing or touching/steadying/contact guard assistance fro m one helper? No. TOILET TRANSFER - STEP 4: Does the patient need physical assistance - for example lifting or trunk support from one helper - wi th the helper providing less than half of the effort? Yes. 1. [id number] ADMISSION PERFORMANCE: Partial/moderate assistance CODE: 03 TRANSFERS: CAR: Not attempted due to medical condition or safety concerns CODE: 88 WALK 10 FEET: WALK 10 FEET - STEP 1: Does the patient complete the activity by him/herself with no assistance (physical, verbal/nonverbal cueing, setup/clean-up)? No. WALK 10 FEET - STEP 2: Does the patient need only setup/clean-up assistance from one helper? No. WALK 10 FEET - STEP 3: Does the patient need only verbal/nonverbal cueing or touching/steadying/contact guard assistance fro m one helper? No. WALK 10 FEET - STEP 4: Does the patient need physical assistance - for example lifting or trunk support from one helper - wi th the helper providing less than half of the effort? Yes. 1. [id number] ADMISSION PERFORMANCE: Partial/moderate assistance CODE: 03 WALK 50 FEET: WALK 50 FEET - STEP 1: Does the patient complete the activity by him/herself with no assistance (physical, verbal/nonverbal cueing, setup/clean-up)? No. WALK 50 FEET - STEP 2: Does the patient need only setup/clean-up assistance from one helper? No. WALK 50 FEET - STEP 3: Does the patient need only verbal/nonverbal cueing or touching/steadying/contact guard assistance fro m one helper? No. WALK 50 FEET - STEP 4: Does the patient need physical assistance - for example lifting or trunk support from one helper - wi th the helper providing less than half of the effort? Yes. 1. [id number] ADMISSION PERFORMANCE: Partial/moderate assistance CODE: 03 WALK 150 FEET: Not attempted due to medical condition or safety concerns CODE: 88 WALK 10 FEET UNEVEN: Not attempted due to medical condition or safety concerns CODE: 88 1 STEP (CURB): Not attempted due to medical condition or safety concerns CODE: 88 PICKING UP OBJECT: Not attempted due to medical condition or safety concerns CODE: 88 DOES THE PATIENT USE A WHEELCHAIR/SCOOTER? Q1. DOES THE PATIENT USE A WHEELCHAIR/SCOOTER?: Yes CODE: 1 WHEEL 50 FEET WITH TWO TURNS: Not attempted due to medical condition or safety concerns CODE: 88 INDICATE THE TYPE OF WHEELCHAIR/SCOOTER USED: CODE: EXPR WHEEL 150 FEET: Not attempted due to medical condition or safety concerns CODE: 88 INDICATE THE TYPE OF WHEELCHAIR/SCOOTER USED: CODE: EXPR BLADDER AND BOWEL: CODE: EXPR CODE: EXPR SIGNATURE PANEL: The following modified sections: 1. [id number] Admission Performance, 1. [id number] Admission Performance, 1. [id number] Admission Performance, 1. [id number] Admission Performance, 1. [id number] Admission Performance, 1. [id number] Admission Performance, 1. [id number] Admission Performance, 1. [id number] Admission Performance , Q1. Does the patient use a wheelchair/scooter?, Code were [electronically] signed by Andrews Blancas on, PT on TueMay 02 2019 16:54:53 GMT-0600 (Central Standard Time)
--- NOTE | 2019-05-02 17:33 | R.HP ---
FACILITY: 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 board/care, assisted living, mcc, transitional living) PRE-HOSPITAL LIVING WITH Attendant ENCOUNTER PHYSICIAN: Dr. River Pichardo M.D. 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 is a 83 yo Right-handed white male. On 04/25/2019 Pt. presented to [facility] with sudden onset of right-side weakn ess. On 04/25/2019 he was admitted to [facility] with diagnosis Nonhemorrhagic Acute Infarction in the Posterior Limb Internal Capsule on the left . His impairment category is Stroke 01 - Right Body (Left Brain) (01.2). Pre-morbidly, Pt. was independent/mod-I in Locomotion, Safety Awareness, Balance, Social Cognition, T ransfers Control, Sphincter Control, Communication, Endurance, and Self-Care; and he had good Locomot ion, Safety Awareness, Balance, Social Cognition, Transfers Control, Sphincter Control, Self-Care, Co mmunication, and Endurance. Currently, he has deficits of Locomotion, Balance, Safety Awareness, Transfers Control, Social Cognit ion, Sphincter Control, Self-Care, Communication, and Endurance. Pt. is now referred to [facility] for acute in-patient rehabilitation in order to maximize patient's functional independence in activities of daily living, strength, ROM, and mobi lity. Patient has realistic goal of being discharged at assistance level 6-Marlon to reside at Home with Att endant. Kaiden Parker is an 83 year old male that lives in an independent living and has a caregiver from 10am-4pm. Patient receives assistance for his bathing from his caregiver. On 04/17/2019, patient went to ER with worsening confusion and aphasia and CT head was unremarkable and was discharged on Tuesday. He fell on Tuesday and had a fluctuating cognitive interaction and was admitted to [facility] and treated. He is now medically stable but in need of 24-hour nursing, doctor supervision and oversite while receiving acti ve and ongoing intensive (PT, reasonably expected to participate in 3hours of therapy a day/15 hours per week and receive care with an intensive interdisciplinary approach. MEDICATION ALLERGIES: No Known Drug Allergies (NKDA) ENVIRONMENTAL ALLERGIES: None Known - Substance Allergies None Known - Other Allergies None Known PAST MEDICAL HISTORY: HTN PARKINSON'S DISEASE PAST SURGICAL HISTORY: N/A FAMILY HISTORY: Family history is not contributory. REVIEW OF SYSTEMS: - Gen No Chills Fatigue No Fever - Eyes No Double Vision No itchiness - ENMT No Difficulty Swallowing - CVS No Chest Discomfort No Chest Pain Fatigue No Weight Gain - Resp No Cough No Shortness of Breath - GI Continent No Abdominal Pain No Constipation No Diarrhea - Continent No Kidney Pain No Painful Urination No Urinary Urgency - MSK No Joint Pain No Muscle Cramps Stiffness - Skin No Itching No Rash No Suspicious Lesions - Neuro Coordination Difficulty Difficulty with Concentration Memory Loss No Seizures Weakness - Psych No Anxiety No Depression No HIV Exposure No Persistent Infections No Seasonal Allergies - Endo No Cold/Heat Intolerance No Excessive Hunger No Excessive Thirst No Excessive Urination PHYSICAL EXAM - Gen Alert and awake Lying in bed No apparent distress Oriented to: person, time, and place - Skin No skin breakdown. No abnormalities - Eyes No abnormalities - ENMT No abnormalities - Neck No abnormalities - CVS RRR - Chest No abnormalities - Resp Clear to auscultation - Abd Soft - GI Non distended No abnormalities - No abnormalities - Ext No significant edema - MSK 4+/5 weakness in right upper and lower extremity - Neuro 4/5 strength right upper and lower extremities. - Psych No abnormalities VITAL SIGNS Temperature: 97.8 F SBP/DBP: 123/59 Pulse: 54 Resp: 16 NURSING: - Shower allowing shower - Bladder care per protocol - Skin care per protocol PRECAUTIONS: - Weight Bearing Precaution WBAT right LE ACTIVITIES OOB only with supervision QI SCORES: - Self-Care A. Eating 05-Setup or clean-up assistance B. Oral hygiene 05-Setup or clean-up assistance C. Toileting hygiene 03-Partial/moderate assistance E. Shower/bathe self 03-Partial/moderate assistance F. Upper body dressing 03-Partial/moderate assistance G. Lower body dressing 03-Partial/moderate assistance H. Putting on/taking off footwear 02-Substantial/maximal assistance - Mobility A. Roll left and right 03-Partial/moderate assistance B. Sit to lying 03-Partial/moderate assistance C. Lying to sitting on side of bed 03-Partial/moderate assistance D. Sit to stand 03-Partial/moderate assistance E. Chair/ful-iu-nnskt transfer 03-Partial/moderate assistance F. Toilet transfer 03-Partial/moderate assistance G. Car transfer 10-Not attempted due to environmental limitations I. Walk 10 feet 02-Substantial/maximal assistance J. Walk 50 feet with two turns 88-Not attempted due to medical condition or safety concerns K. Walk 150 feet 88-Not attempted due to medical condition or safety concerns L. Walking 10 feet on uneven surfaces 88-Not attempted due to medical condition or safety concerns M. 1 step (curb) 88-Not attempted due to medical condition or safety concerns N. 4 steps 88-Not attempted due to medical condition or safety concerns O. 12 steps 88-Not attempted due to medical condition or safety concerns P. Picking up object 88-Not attempted due to medical condition or safety concerns R. Wheel 50 feet with two turns 88-Not attempted due to medical condition or safety concerns S. Wheel 150 feet 88-Not attempted due to medical condition or safety concerns - Bladder and Bowel Bladder continence 0-Always continent Bowel continence 0-Always continent - Endurance Fair - Balance Fair - Safety Awareness Fair CURRENT FUNC. DEFICITS: Self-Care, Mobility, Endurance, Balance, and Safety Awareness MEDICATIONS: - Other See attached MAR (Medication Administration Record) ASSESSMENT: Pt. is a 83 yo Right-handed white male.On 04/25/2019 Pt. presented to [facility] with sudden onset of right-side weakness.On 04/25/2019 he was admitted to [facility] with diagnosis Nonhemorrhagic Acute Infarction in the Posterior Limb Internal Capsule on the left .His impairment category is Stroke 01 - Right Body (Left Brain) (01.2).Pre-morbidly, Pt. was in dependent/mod-I in Locomotion, Safety Awareness, Balance, Social Cognition, Transfers Control, Sphinc ter Control, Communication, Endurance, and Self-Care; and he had good Locomotion, Safety Awareness, B alance, Social Cognition, Transfers Control, Sphincter Control, Self-Care, Communication, and Enduran ce.Currently, he has deficits of Locomotion, Balance, Safety Awareness, Transfers Control, Social Cog nition, Sphincter Control, Self-Care, Communication, and Endurance.Pt. is now referred to [facility] for acute in-patient rehabilitation in order to maximize patient's functional independence in activities of daily living, strength, ROM, and mobility.- Rehab Goal Patient has realistic goal of being discharged at assistance level 6-Marlon to reside at Home with Att endant. Kaiden Parker is an 83 year old male that lives in an independent living and has a caregiver from 10am-4pm. Patient receives assistance for his bathing from his caregiver. On 04/17/2019, patient went to ER with worsening confusion and aphasia and CT head was unremarkable and was discharged on Tuesday. He fell on Tuesday and had a fluctuating cognitive interaction and was admitted to [facility] and treated. He is now medically stable but in need of 24-hour nursing, doctor supervision and oversite while receiving acti ve and ongoing intensive (PT, reasonably expected to participate in 3hours of therapy a day/15 hours per week and receive care with an intensive interdisciplinary approach.REHAB PLAN: for Dementia, TBI, Stroke, or others - Physical Therapy Gait dysfunction - to improve, our physical therapists will perform initial evaluation of pt's status upon admission and devise an individualized program for Gait Training, and Wheel Chair mobility Inability to transfer - to improve, our physical therapists will perform initial evaluation of pt's s tatus upon admission and devise an individualized program for Bed mobility Need for home safety evaluation - to improve, our physical therapists will perform initial evaluation of pt's status upon admission and devise an individualized program for Home Evaluation Need in caregiver upon discharge - to improve, our physical therapists will perform initial evaluatio n of pt's status upon admission and devise an individualized program for Caregiver Training New precaution - to improve, our physical therapists will perform initial evaluation of pt's status u tomas admission and devise an individualized program for Patient precaution education Edema - to improve, our physical therapists will perform initial evaluation of pt's status upon admi ssion and devise an individualized program for Elevation Training, and Lymphedema Therapy Poor balance - to improve, our physical therapists will perform initial evaluation of pt's status upo n admission and devise an individualized program for Balance Training Poor endurance - to improve, our physical therapists will perform initial evaluation of pt's status u tomas admission and devise an individualized program for Endurance Training Weakness - to improve, our physical therapists will perform initial evaluation of pt's status upon ad mission and devise an individualized program for Aquatic Therapy, Neuromuscular Reeducation, and Stre ngthening Achieving independence - to improve, our physical therapists will perform initial evaluation of pt's status upon admission and devise an individualized program for Community Reintegration Activities - Occupational Therapy ADL deficits - to improve, our occupation therapists will perform initial evaluation of pt's status u tomas admission and devise an individualized program for Bathing, Bed mobility, Community Reintegration , Cooking, Dressing, Eating, Fine Motor Skills, Grooming, Homemaking, Kitchen Mobility, Laundry, Yuli ent Education, Safety Awareness, Splinting - Positioning, Transfers(Toilet, Tub, Shower), and Wheel C hair Management Cognitive deficits - to improve, our occupation therapists will perform initial evaluation of pt's st atus upon admission and devise an individualized program for Cognition - orientation Need for child care supervisor - to improve, our occupation therapists will perform initial evaluation of pt's s tatus upon admission and devise an individualized program for Caregiver Training Weakness - to improve, our occupation therapists will perform initial evaluation of pt's status upon admission and devise an individualized program for Aquatic Therapy, Balance, Endurance, UE ROM, and U E strengthening MEDICAL PLAN: - Diet Type Start Regular - Diet - Liquid Texture Start Thin - Tube Feed Start N/A - Bladder care per protocol - Weight Bearing Precaution WBAT right LE - Skin care per protocol - Other See attached MAR (Medication Administration Record) - N/A Perform Neuro consult - Diet - Solid Texture Start Regular Start Mechanical Soft - Shower shower DISCHARGE PLAN: - Estimated Length of Stay (days) 17. - Consensus on plan Discharge plan has been discussed with primary caregiver. Patient/Family is in agreement with the sneha n. Primary caregiver is in agreement with the plan. - Patient/Family Goals Return home with assistance. - Planned Living Setting Upon Discharge Home, to live with Attendant. Transitional Living. Primary caregiver: Attendant. 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
--- NOTE | 2019-05-02 17:35 | PAPE ---
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 River Pichardo M.D. ADMISSION DIAGNOSIS: Nonhemorrhagic Acute Infarction in the Posterior Limb Internal Capsule on the left Parkinsons Disease ONSET DATE 04/25/2019 SECONDARY/COMORBID DIAGNOSES TIERED: - N/A HTN PARKINSON'S DISEASE POST-ADMISSION FUNCTIONAL/MEDICAL STATUS: - Bladder Same accident frequency: Ind - No accidents in the past 7 days - Bowel Same accident frequency: Ind - No accidents in the past 7 days - Walking Same score based on distance walked: 0(N/A) Same score based on distance walked: 1(<=50ft) - Wheelchair Same score based on distance traveled: 0(N/A) STATUS CHANGE EVALUATION: No change in Functional or Medical Status is identified compared with Pre-Admission screening. PATIENT NEEDS CLOSE MEDICAL SUPERVISION BY A REHABILITATION PHYSICIAN FOR: Coordination of Treatment Team Medical and Co-Morbidity Management PATIENT REQUIRES 24X7 REHAB NURSING FOR MEDICAL AND FUNCTIONAL MGT. OF THE FOLLOWING DEFICITS: Disease Management Medication Management Patient/Family Education Providing Safe Environment PATIENT REQUIRES INTENSIVE, COORDINATED INTERDISCIPLINARY APPROACH TO REHAB: Arranging Home Equipment/Services Discharge Planning Family Intervention/Training Police Commissioner/Case Management LIST OF IDENTIFIED AND POTENTIAL PROBLEMS: Alteration in leisure activities Bladder, Incontinence Bowel, Incontinence Infection, Actual or Potential Mobility Impaired Pain, Alteration in Comfort Self Care Deficit Skin Integrity, Actual or Potential Urinary Tract Infection (UTI), Actual or Potential PATIENT COULD BE AT RISK FOR COMPLICATIONS FROM ADVERSE MEDICAL CONDITIONS DUE TO HIS/HER COMORBIDITI ES AND THE RIGORS OF THE INTENSIVE REHABILLITATION PROGRAM. METHODS OR INTERVENTIONS TO AVOID COMPLIC ATIONS INCLUDE: - Bleeding Stroke patients assessed for lethargy or change in status. - Infection Clinical staff to assess and manage the signs and symptoms of infection including fever, redness, war mth, etc. - Urinary Tract Infection - Aspiration Clinical staff will assess and manage coughing, drooling, congestion. - Falls Patient will be evaluated for Fall Precautions and will be placed on Fall Precautions as indicated pe r protocol. - Skin Breakdown Nursing will assess skin daily using assessment tool and will place on Skin Breakdown Precautions as indicated per protocol. - Pain Clinical staff may employ non-medication methods such as massage, distraction, decrease stimulus, etc . as needed. Clinical staff will assess patient's pain level every shift per protocol to assess and e nsure pain management effectiveness. Medications will be given and the pain level re-assessed. PRELIMINARY PLAN OF CARE: - Physical Therapy Patient needs Physical Therapy for a daily minimum of 1.5 hours at least 5 out of 7 days, to improve: Mobility, Strengthening, Transfers, Stretching, ROM, Endurance, Ability to manage stairs, Gait, and Balance. - Speech Therapy Patient needs Speech Therapy for a daily minimum of 0.5 hours at least 5 out of 7 days, to improve: S wallowing, Cognition, Language Skills, and Compensatory Strategies. - Rehabilitation Nursing Patient requires 24x7 Rehabilitation Nursing for: Pain Issues, Identifying and preventing risk factor s, Monitoring and reporting current medical conditions, Assisting with ambulation and transfer, Luke ting with all ADL-s, Teaching patients about disease process and medications, Family teaching, Provid ing safe environment, Bowel and Bladder Issues, Skin Integrity, and Medication Management. Patient needs Police Commissioner and/or Case Management for: Discharge Planning, Arranging Home Equipmen t or Services, and Family Interventions. - Dietary and Nutrition Services Patient needs Dietary and Nutrition Services for: Adequate Nutrition, Nutritional Supplements, and Nu tritional Education. - Occupational Therapy Patient needs Occupational Therapy for a daily minimum of 1.5 hours at least 5 out of 7 days, to impr ove Activities of Daily Living, including: Eating, Grooming, Bathing, Dressing, Toileting, Toilet Tra nsfers, Community Reintegration, Higher functional activities, Adaptive Equipment, Splinting, Househo ld Tasks, and Other activities as determined. QI SCORES: - Self-Care A. Eating 05-Setup or clean-up assistance B. Oral hygiene 05-Setup or clean-up assistance C. Toileting hygiene 03-Partial/moderate assistance E. Shower/bathe self 03-Partial/moderate assistance F. Upper body dressing 03-Partial/moderate assistance G. Lower body dressing 03-Partial/moderate assistance H. Putting on/taking off footwear 02-Substantial/maximal assistance - Mobility A. Roll left and right 03-Partial/moderate assistance B. Sit to lying 03-Partial/moderate assistance C. Lying to sitting on side of bed 03-Partial/moderate assistance D. Sit to stand 03-Partial/moderate assistance E. Chair/cxl-ad-lbfzh transfer 03-Partial/moderate assistance F. Toilet transfer 03-Partial/moderate assistance G. Car transfer 10-Not attempted due to environmental limitations I. Walk 10 feet 02-Substantial/maximal assistance J. Walk 50 feet with two turns 88-Not attempted due to medical condition or safety concerns K. Walk 150 feet 88-Not attempted due to medical condition or safety concerns L. Walking 10 feet on uneven surfaces 88-Not attempted due to medical condition or safety concerns M. 1 step (curb) 88-Not attempted due to medical condition or safety concerns N. 4 steps 88-Not attempted due to medical condition or safety concerns O. 12 steps 88-Not attempted due to medical condition or safety concerns P. Picking up object 88-Not attempted due to medical condition or safety concerns R. Wheel 50 feet with two turns 88-Not attempted due to medical condition or safety concerns S. Wheel 150 feet 88-Not attempted due to medical condition or safety concerns - Bladder and Bowel Bladder continence 0-Always continent Bowel continence 0-Always continent - Endurance Fair - Balance Fair - Safety Awareness Fair POTENTIAL FUNCTIONAL GOALS FOR PATIENT TO ACHIEVE BY DISCHARGE: - Safety Precaution Patient will remain free from falls or injury at time of discharge. - Bed Mobility Patient will perform bed mobility at 4-Reynaldo level of assistance. - Transfers Patient will complete transfers from bed to chair at 4-Reynaldo level of assistance. - Mobility Patient will ambulate 150 ft with 4-Reynaldo level of assistance with RW. PATIENT REHAB POTENTIAL Sarath PARKER is able and expected to receive 3 hours of individualized therapy daily on at least 5 of ever y 7 days Sarath PARKER's prognosis for significant practical improvement within a reasonable period of time appears Good Expected level of measurable improvement will be of a practical value to Sarath PARKER's functional capacit y or adaptations to impairments Has a viable Discharge Plan Medically appropriate; condition is sufficiently stable to participate in intensive rehab program DISCHARGE PLAN: - Estimated Length of Stay (days) 17. - Consensus on plan Discharge plan has been discussed with primary caregiver. Patient/Family is in agreement with the sneha n. Primary caregiver is in agreement with the plan. - Patient/Family Goals Return home with assistance. - Planned Living Setting Upon Discharge Home, to live with Attendant. Transitional Living. Primary caregiver: Attendant. CONCLUSION ON REHABILITATION NECESSITY: I have evaluated patient's pre-admission functional status and, comparing it to the patient's post-ad mission functional status now, I conclude that the pre-admission assessment was accurate. Patient's c ondition on admission supports the medical necessity of admission to [facility]. It is safe to proceed with patient's therapy program. 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
[2019-05-02] MEDS: ATORVASTATIN 20 MG TAB PO SCH (20:37)
[2019-05-02] MEDS: TRAMADOL HCL 50 MG TAB PO PRN (20:39)
[2019-05-03 06:05] LABS: Absolute Lymphocytes (CBC) 1.5 K/uL (0.7-4.9); Basophils % 0.9 % (0-1.3); Hematocrit 34.2 % (39.6-49.0); Lymphocytes % 34.9 % (15.3-44.8); MPV 7.7 fL (7.6-11.3); RBC Red Blood Cell Count 3.59 M/uL (4.33-5.43)
[2019-05-03 07:19] LABS: Magnesium 2.2 mg/dL (1.8-2.4); Potassium 4.2 mmol/L (3.5-5.1); Prealbumin 12.9 mg/dL (20-40)
[2019-05-03] MEDS: FOLIC ACID 1 MG TABLET PO SCH (07:53)
[2019-05-03] MEDS: CLOPIDOGREL 75 MG TABLET PO SCH (07:53)
[2019-05-03] MEDS: TRAMADOL HCL 50 MG TAB PO PRN (07:53)
[2019-05-03] MEDS: ASPIRIN 81 MG CHEWABLE TABLET PO SCH (07:53)
[2019-05-03] MEDS: TURMERIC ROOT EXTRACT PO SCH (07:58)
[2019-05-03] MEDS: CARBIDOPA/LEVODOPA 25/100 TAB PO SCH ×4 (07:59→21:09)
[2019-05-03 10:03] LABS: Urine Appearance CLEAR; Urine Bilirubin NEGATIVE (NEG); Urine Blood NEGATIVE (NEG); Urine Color YELLOW; Urine Glucose NEGATIVE (NEG); Urine Protein NEGATIVE (NEG); Urine Specific Gravity 1.025 (1.005-1.030)
[2019-05-03 10:40] LABS: Urine Bacteria 20-50 /HPF (NONE SEEN); Urine Culture Reflex Order REFLEXED; Urine RBC <5 /HPF (NONE SEEN)
[2019-05-03] MEDS: ACETAMINOPHEN 500 MG TAB PO PRN (13:10)
--- NOTE | 2019-05-03 15:31 | FAST ---
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 River Pichardo M.D. ADMISSION DIAGNOSIS: - Stroke 01 - Right Body (Left Brain) (01.2) Nonhemorrhagic Acute Infarction in the Posterior Limb Internal Capsule on the left . - Neurologic Conditions 03 - Parkinsonism (03.2) Parkinsons Disease. ROLL LEFT AND RIGHT: ROLL LEFT AND RIGHT - STEP 1: Does the patient complete the activity by him/herself with no assistance (physical, verbal/nonverbal cueing, setup/clean-up)? No. ROLL LEFT AND RIGHT - STEP 2: Does the patient need only setup/clean-up assistance from one helper? No. ROLL LEFT AND RIGHT - STEP 3: Does the patient need only verbal/nonverbal cueing or touching/steadying/contact guard assistance fro m one helper? No. ROLL LEFT AND RIGHT - STEP 4: Does the patient need physical assistance - for example lifting or trunk support from one helper - wi th the helper providing less than half of the effort? Yes. 1. [id number] ADMISSION PERFORMANCE: Partial/moderate assistance CODE: 03 SIT TO LYING: SIT TO LYING - STEP 1: Does the patient complete the activity by him/herself with no assistance (physical, verbal/nonverbal cueing, setup/clean-up)? No. SIT TO LYING - STEP 2: Does the patient need only setup/clean-up assistance from one helper? No. SIT TO LYING - STEP 3: Does the patient need only verbal/nonverbal cueing or touching/steadying/contact guard assistance fro m one helper? No. SIT TO LYING - STEP 4: Does the patient need physical assistance - for example lifting or trunk support from one helper - wi th the helper providing less than half of the effort? Yes. 1. [id number] ADMISSION PERFORMANCE: Partial/moderate assistance CODE: 03 LYING TO SITTING: LYING TO SITTING ON SIDE OF BED - STEP 1: Does the patient complete the activity by him/herself with no assistance (physical, verbal/nonverbal cueing, setup/clean-up)? No. LYING TO SITTING ON SIDE OF BED - STEP 2: Does the patient need only setup/clean-up assistance from one helper? No. LYING TO SITTING ON SIDE OF BED - STEP 3: Does the patient need only verbal/nonverbal cueing or touching/steadying/contact guard assistance fro m one helper? No. LYING TO SITTING ON SIDE OF BED - STEP 4: Does the patient need physical assistance - for example lifting or trunk support from one helper - wi th the helper providing less than half of the effort? Yes. 1. [id number] ADMISSION PERFORMANCE: Partial/moderate assistance CODE: 03 SIT TO STAND: SIT TO STAND - STEP 1: Does the patient complete the activity by him/herself with no assistance (physical, verbal/nonverbal cueing, setup/clean-up)? No. SIT TO STAND - STEP 2: Does the patient need only setup/clean-up assistance from one helper? No. SIT TO STAND - STEP 3: Does the patient need only verbal/nonverbal cueing or touching/steadying/contact guard assistance fro m one helper? No. SIT TO STAND - STEP 4: Does the patient need physical assistance - for example lifting or trunk support from one helper - wi th the helper providing less than half of the effort? Yes. 1. [id number] ADMISSION PERFORMANCE: Partial/moderate assistance CODE: 03 TRANSFERS: BED, CHAIR: CHAIR/[id number] TRANSFER - STEP 1: Does the patient complete the activity by him/herself with no assistance (physical, verbal/nonverbal cueing, setup/clean-up)? No. CHAIR/[id number] TRANSFER - STEP 2: Does the patient need only setup/clean-up assistance from one helper? No. CHAIR/PQR-MY-[id number] TRANSFER - STEP 3: Does the patient need only verbal/nonverbal cueing or touching/steadying/contact guard assistance fro m one helper? No. CHAIR/[id number] TRANSFER - STEP 4: Does the patient need physical assistance - for example lifting or trunk support from one helper - wi th the helper providing less than half of the effort? Yes. 1. [id number] ADMISSION PERFORMANCE: Partial/moderate assistance CODE: 03 TRANSFER TOILET: TOILET TRANSFER - STEP 1: Does the patient complete the activity by him/herself with no assistance (physical, verbal/nonverbal cueing, setup/clean-up)? No. TOILET TRANSFER - STEP 2: Does the patient need only setup/clean-up assistance from one helper? No. TOILET TRANSFER - STEP 3: Does the patient need only verbal/nonverbal cueing or touching/steadying/contact guard assistance fro m one helper? No. TOILET TRANSFER - STEP 4: Does the patient need physical assistance - for example lifting or trunk support from one helper - wi th the helper providing less than half of the effort? Yes. 1. [id number] ADMISSION PERFORMANCE: Partial/moderate assistance CODE: 03 TRANSFERS: CAR: Not attempted due to environmental limitations (e.g., lack of equipment, weather constraints) CODE: 10 WALK 10 FEET: WALK 10 FEET - STEP 1: Does the patient complete the activity by him/herself with no assistance (physical, verbal/nonverbal cueing, setup/clean-up)? No. WALK 10 FEET - STEP 2: Does the patient need only setup/clean-up assistance from one helper? No. WALK 10 FEET - STEP 3: Does the patient need only verbal/nonverbal cueing or touching/steadying/contact guard assistance fro m one helper? No. WALK 10 FEET - STEP 4: Does the patient need physical assistance - for example lifting or trunk support from one helper - wi th the helper providing less than half of the effort? Yes. 1. [id number] ADMISSION PERFORMANCE: Partial/moderate assistance CODE: 03 WALK 50 FEET: WALK 50 FEET - STEP 1: Does the patient complete the activity by him/herself with no assistance (physical, verbal/nonverbal cueing, setup/clean-up)? No. WALK 50 FEET - STEP 2: Does the patient need only setup/clean-up assistance from one helper? No. WALK 50 FEET - STEP 3: Does the patient need only verbal/nonverbal cueing or touching/steadying/contact guard assistance fro m one helper? No. WALK 50 FEET - STEP 4: Does the patient need physical assistance - for example lifting or trunk support from one helper - wi th the helper providing less than half of the effort? Yes. 1. [id number] ADMISSION PERFORMANCE: Partial/moderate assistance CODE: 03 WALK 150 FEET: Not attempted due to medical condition or safety concerns CODE: 88 WALK 10 FEET UNEVEN: Not attempted due to medical condition or safety concerns CODE: 88 1 STEP (CURB): Not attempted due to medical condition or safety concerns CODE: 88 PICKING UP OBJECT: Not attempted due to medical condition or safety concerns CODE: 88 DOES THE PATIENT USE A WHEELCHAIR/SCOOTER? Q1. DOES THE PATIENT USE A WHEELCHAIR/SCOOTER?: Yes CODE: 1 WHEEL 50 FEET WITH TWO TURNS: WHEEL 50 FEET WITH TWO TURNS - STEP 1: Does the patient complete the activity by him/herself with no assistance (physical, verbal/nonverbal cueing, setup/clean-up)? No. WHEEL 50 FEET WITH TWO TURNS - STEP 2: Does the patient need only setup/clean-up assistance from one helper? No. WHEEL 50 FEET WITH TWO TURNS - STEP 3: Does the patient need only verbal/nonverbal cueing or touching/steadying/contact guard assistance fro m one helper? Yes. 1. [id number] ADMISSION PERFORMANCE: Supervision or touching assistance CODE: 04 INDICATE THE TYPE OF WHEELCHAIR/SCOOTER USED: RR1. INDICATE THE TYPE OF WHEELCHAIR/SCOOTER USED.: Manual CODE: 1 WHEEL 150 FEET: Not attempted due to medical condition or safety concerns CODE: 88 INDICATE THE TYPE OF WHEELCHAIR/SCOOTER USED: SS1. INDICATE THE TYPE OF WHEELCHAIR/SCOOTER USED.: Manual CODE: 1 BLADDER AND BOWEL: CODE: EXPR CODE: EXPR SIGNATURE PANEL: The following modified sections: 1. [id number] Admission Performance, 1. [id number] Admission Performance, 1. [id number] Admission Performance, 1. [id number] Admission Performance, 1. [id number] Admission Performance, 1. [id number] Admission Performance, 1. [id number] Admission Performance, 1. [id number] Admission Performance , Q1. Does the patient use a wheelchair/scooter?, 1. [id number] Admission Performance, RR1. Indicate the type of wheelchair/scooter used., Code, SS1. Indicate the type of wheelchair/scooter used. were [rico ctronically] signed by Andrews Shankar PT on TueMay 03 2019 15:30:42 GMT-0600 ([place])
--- NOTE | 2019-05-03 15:44 | FAST ---
SHIFT START DATE/TIME: 05/03/2019 07:00 (SPINE SPECIALIST) SHIFT END DATE/TIME: 05/03/2019 19:00 (SPINE SPECIALIST) NAME DORA PARKER DATE OF : 1935 DATE OF ADMISSION: 05/01/2019 19:11 (SPINE SPECIALIST) PHONE: AGE: 83 N# [id number] GENDER: Male ENCOUNTER PHYSICIAN: Dr. River Pichardo M.D. ADMISSION DIAGNOSIS: - Stroke 01 - Right Body (Left Brain) (01.2) Nonhemorrhagic Acute Infarction in the Posterior Limb Internal Capsule on the left . - Neurologic Conditions 03 - Parkinsonism (03.2) Parkinsons Disease. EATING: EATING - STEP 1: Does the patient complete the activity by him/herself with no assistance (physical, verbal/nonverbal cueing, setup/clean-up)? No. EATING - STEP 2: Does the patient need only setup/clean-up assistance from one helper? No. EATING - STEP 3: Does the patient need only verbal/nonverbal cueing or touching/steadying/contact guard assistance fro m one helper? No. EATING - STEP 4: Does the patient need physical assistance - for example lifting or trunk support from one helper - wi th the helper providing less than half of the effort? Yes. 1. [id number] ADMISSION PERFORMANCE: Partial/moderate assistance CODE: 03 ORAL HYGIENE: Not assessed/no information CODE: - TOILETING HYGIENE: TOILETING HYGIENE - STEP 1: Does the patient complete the activity by him/herself with no assistance (physical, verbal/nonverbal cueing, setup/clean-up)? No. TOILETING HYGIENE - STEP 2: Does the patient need only setup/clean-up assistance from one helper? No. TOILETING HYGIENE - STEP 3: Does the patient need only verbal/nonverbal cueing or touching/steadying/contact guard assistance fro m one helper? No. TOILETING HYGIENE - STEP 4: Does the patient need physical assistance - for example lifting or trunk support from one helper - wi th the helper providing less than half of the effort? No. TOILETING HYGIENE - STEP 5: Does the patient need physical assistance - for example lifting or trunk support from one helper - wi th the helper providing more than half of the effort? Yes. 1. [id number] ADMISSION PERFORMANCE: Substantial/maximal assistance CODE: 02 BATHING: Not assessed/no information CODE: - DRESSING - UPPER BODY: DRESSING - UPPER BODY - STEP 1: Does the patient complete the activity by him/herself with no assistance (physical, verbal/nonverbal cueing, setup/clean-up)? No. DRESSING - UPPER BODY - STEP 2: Does the patient need only setup/clean-up assistance from one helper? No. DRESSING - UPPER BODY - STEP 3: Does the patient need only verbal/nonverbal cueing or touching/steadying/contact guard assistance fro m one helper? No. DRESSING - UPPER BODY - STEP 4: Does the patient need physical assistance - for example lifting or trunk support from one helper - wi th the helper providing less than half of the effort? No. DRESSING - UPPER BODY - STEP 5: Does the patient need physical assistance - for example lifting or trunk support from one helper - wi th the helper providing more than half of the effort? Yes. 1. [id number] ADMISSION PERFORMANCE: Substantial/maximal assistance CODE: 02 DRESSING - LOWER BODY: DRESSING - LOWER BODY - STEP 1: Does the patient complete the activity by him/herself with no assistance (physical, verbal/nonverbal cueing, setup/clean-up)? No. DRESSING - LOWER BODY - STEP 2: Does the patient need only setup/clean-up assistance from one helper? No. DRESSING - LOWER BODY - STEP 3: Does the patient need only verbal/nonverbal cueing or touching/steadying/contact guard assistance fro m one helper? No. DRESSING - LOWER BODY - STEP 4: Does the patient need physical assistance - for example lifting or trunk support from one helper - wi th the helper providing less than half of the effort? No. DRESSING - LOWER BODY - STEP 5: Does the patient need physical assistance - for example lifting or trunk support from one helper - wi th the helper providing more than half of the effort? Yes. 1. [id number] ADMISSION PERFORMANCE: Substantial/maximal assistance CODE: 02 PUTTING ON/TAKING OFF FOOTWEAR: FOOTWEAR - STEP 1: Does the patient complete the activity by him/herself with no assistance (physical, verbal/nonverbal cueing, setup/clean-up)? No. FOOTWEAR - STEP 2: Does the patient need only setup/clean-up assistance from one helper? No. FOOTWEAR - STEP 3: Does the patient need only verbal/nonverbal cueing or touching/steadying/contact guard assistance fro m one helper? No. FOOTWEAR - STEP 4: Does the patient need physical assistance - for example lifting or trunk support from one helper - wi th the helper providing less than half of the effort? Yes. 1. [id number] ADMISSION PERFORMANCE: Partial/moderate assistance CODE: 03 ROLL LEFT AND RIGHT: ROLL LEFT AND RIGHT - STEP 1: Does the patient complete the activity by him/herself with no assistance (physical, verbal/nonverbal cueing, setup/clean-up)? No. ROLL LEFT AND RIGHT - STEP 2: Does the patient need only setup/clean-up assistance from one helper? No. ROLL LEFT AND RIGHT - STEP 3: Does the patient need only verbal/nonverbal cueing or touching/steadying/contact guard assistance fro m one helper? No. ROLL LEFT AND RIGHT - STEP 4: Does the patient need physical assistance - for example lifting or trunk support from one helper - wi th the helper providing less than half of the effort? Yes. 1. [id number] ADMISSION PERFORMANCE: Partial/moderate assistance CODE: 03 SIT TO LYING: SIT TO LYING - STEP 1: Does the patient complete the activity by him/herself with no assistance (physical, verbal/nonverbal cueing, setup/clean-up)? No. SIT TO LYING - STEP 2: Does the patient need only setup/clean-up assistance from one helper? No. SIT TO LYING - STEP 3: Does the patient need only verbal/nonverbal cueing or touching/steadying/contact guard assistance fro m one helper? No. SIT TO LYING - STEP 4: Does the patient need physical assistance - for example lifting or trunk support from one helper - wi th the helper providing less than half of the effort? Yes. 1. [id number] ADMISSION PERFORMANCE: Partial/moderate assistance CODE: 03 LYING TO SITTING: LYING TO SITTING ON SIDE OF BED - STEP 1: Does the patient complete the activity by him/herself with no assistance (physical, verbal/nonverbal cueing, setup/clean-up)? No. LYING TO SITTING ON SIDE OF BED - STEP 2: Does the patient need only setup/clean-up assistance from one helper? No. LYING TO SITTING ON SIDE OF BED - STEP 3: Does the patient need only verbal/nonverbal cueing or touching/steadying/contact guard assistance fro m one helper? No. LYING TO SITTING ON SIDE OF BED - STEP 4: Does the patient need physical assistance - for example lifting or trunk support from one helper - wi th the helper providing less than half of the effort? Yes. 1. [id number] ADMISSION PERFORMANCE: Partial/moderate assistance CODE: 03 SIT TO STAND: SIT TO STAND - STEP 1: Does the patient complete the activity by him/herself with no assistance (physical, verbal/nonverbal cueing, setup/clean-up)? No. SIT TO STAND - STEP 2: Does the patient need only setup/clean-up assistance from one helper? No. SIT TO STAND - STEP 3: Does the patient need only verbal/nonverbal cueing or touching/steadying/contact guard assistance fro m one helper? No. SIT TO STAND - STEP 4: Does the patient need physical assistance - for example lifting or trunk support from one helper - wi th the helper providing less than half of the effort? Yes. 1. [id number] ADMISSION PERFORMANCE: Partial/moderate assistance CODE: 03 TRANSFERS: BED, CHAIR: CHAIR/[id number] TRANSFER - STEP 1: Does the patient complete the activity by him/herself with no assistance (physical, verbal/nonverbal cueing, setup/clean-up)? No. CHAIR/[id number] TRANSFER - STEP 2: Does the patient need only setup/clean-up assistance from one helper? No. CHAIR/[id number] TRANSFER - STEP 3: Does the patient need only verbal/nonverbal cueing or touching/steadying/contact guard assistance fro m one helper? No. CHAIR/[id number] TRANSFER - STEP 4: Does the patient need physical assistance - for example lifting or trunk support from one helper - wi th the helper providing less than half of the effort? Yes. 1. [id number] ADMISSION PERFORMANCE: Partial/moderate assistance CODE: 03 TRANSFER TOILET: TOILET TRANSFER - STEP 1: Does the patient complete the activity by him/herself with no assistance (physical, verbal/nonverbal cueing, setup/clean-up)? No. TOILET TRANSFER - STEP 2: Does the patient need only setup/clean-up assistance from one helper? No. TOILET TRANSFER - STEP 3: Does the patient need only verbal/nonverbal cueing or touching/steadying/contact guard assistance fro m one helper? No. TOILET TRANSFER - STEP 4: Does the patient need physical assistance - for example lifting or trunk support from one helper - wi th the helper providing less than half of the effort? Yes. 1. [id number] ADMISSION PERFORMANCE: Partial/moderate assistance CODE: 03 TRANSFERS: CAR: Not assessed/no information CODE: - WALK 10 FEET: Not assessed/no information CODE: - 1 STEP (CURB): Not assessed/no information CODE: - PICKING UP OBJECT: Not assessed/no information CODE: - DOES THE PATIENT USE A WHEELCHAIR/SCOOTER? Q1. DOES THE PATIENT USE A WHEELCHAIR/SCOOTER?: Yes CODE: 1 WHEEL 50 FEET WITH TWO TURNS: WHEEL 50 FEET WITH TWO TURNS - STEP 1: Does the patient complete the activity by him/herself with no assistance (physical, verbal/nonverbal cueing, setup/clean-up)? No. WHEEL 50 FEET WITH TWO TURNS - STEP 2: Does the patient need only setup/clean-up assistance from one helper? No. WHEEL 50 FEET WITH TWO TURNS - STEP 3: Does the patient need only verbal/nonverbal cueing or touching/steadying/contact guard assistance fro m one helper? No. WHEEL 50 FEET WITH TWO TURNS - STEP 4: Does the patient need physical assistance - for example lifting or trunk support from one helper - wi th the helper providing less than half of the effort? Yes. 1. [id number] ADMISSION PERFORMANCE: Partial/moderate assistance CODE: 03 INDICATE THE TYPE OF WHEELCHAIR/SCOOTER USED: CODE: EXPR WHEEL 150 FEET: Not assessed/no information CODE: - INDICATE THE TYPE OF WHEELCHAIR/SCOOTER USED: SS1. INDICATE THE TYPE OF WHEELCHAIR/SCOOTER USED.: Manual CODE: 1 BLADDER AND BOWEL: H350. BLADDER CONTINENCE (3-DAY ASSESSMENT PERIOD): Incontinent daily (at least once a day) CODE: 3 H400. BOWEL CONTINENCE (3-DAY ASSESSMENT PERIOD): Always continent CODE: 0 SIGNATURE PANEL: The following modified sections: 1. [id number] Admission Performance, 1. [id number] Admission Performance, 1. [id number] Admission Performance, 1. [id number] Admission Performance, 1. [id number] Admission Performance, 1. [id number] Admission Performance, 1. [id number] Admission Performance, 1. EQ5029u Admission Performance , 1. [id number] Admission Performance, 1. [id number] Admission Performance, 1. [id number] Admission Performanc e, 1. [id number] Admission Performance, 1. [id number] Admission Performance, 1. [id number] Admission Performan ce, 1. [id number] Admission Performance, 1. [id number] Admission Performance, 1. [id number] Admission Performa nce, Q1. Does the patient use a wheelchair/scooter?, 1. [id number] Admission Performance, Code, SS1. Ind icate the type of wheelchair/scooter used., H350. Bladder Continence (3-day assessment period), H400. Bowel Continence (3-day assessment period) were [electronically] signed by Mary [email or web address] on May 03 2019 15:43:17 GMT-0600 (Central Standard Time)
[2019-05-03] MEDS: ENOXAPARIN 40 MG/0.4 ML SQ SCH (17:06)
--- NOTE | 2019-05-03 18:14 | R.PN ---
ENCOUNTER DATE AND TIME: 05/03/2019 17:44 (SANDER AND BUFFER) NAME DORA PARKER DATE OF : 1935 DATE OF ADMISSION: 05/01/2019 19:11 (SANDER AND BUFFER) Nonhemorrhagic Acute Infarction in the Posterior Limb Internal Capsule on the left Parkinsons Disease CHIEF COMPLAINT: Right sided weakness from left subcortical stroke SUBJECTIVE: Pt denied any depression. Pt denied any Shortness of Breath. Ambulated 170' with minimum assistance using a rolling walker. WBC 4.4, Hgb 11.9, prealbumin 12.9, UA shows trace esterase and bacteria 20-50. VITAL SIGNS Temperature: 97.0 F SBP/DBP: 135/68 Pulse: 51 Resp: 16 MEDICATION ALLERGIES: No Known Drug Allergies (NKDA) ENVIRONMENTAL ALLERGIES: None Known - Substance Allergies None Known - Other Allergies None Known CONSULT: Perform Neuro consult NURSING: - Shower allowing shower - Bladder care per protocol - Skin care per protocol PRECAUTIONS: - Weight Bearing Precaution WBAT right LE ACTIVITIES OOB only with supervision THERAPIES: - Occupational Therapy Cognitive Retraining. Visual Perceptual Training. - Dietary and Nutrition Adequate Nutrition. Nutritional Education. Nutritional Supplements. - Speech Therapy Cognitive Training. Dysphagia Therapy. Expressive Language Skills. Memory Strategies. Receptive Langu age Skills. Speech Intelligibility Training. PHYSICAL EXAM - Gen Alert and awake Lying in bed No apparent distress Oriented to: person, time, and place - Skin No skin breakdown. No abnormalities - Eyes No abnormalities - ENMT No abnormalities - Neck No abnormalities - CVS RRR - Chest No abnormalities - Resp Clear to auscultation - Abd Soft - GI Non distended No abnormalities - No abnormalities - Ext No significant edema - MSK 4+/5 weakness in right upper and lower extremity - Neuro 4/5 strength right upper and lower extremities. - Psych No abnormalities ASSESSMENT: Pt. is a 83 yo Right-handed white male.On 04/25/[address] [facility] with sudden onset of right-side weakness.On 04/25/2019 [facility] with diagnosis Nonhemorrhagic Acute Infarction in the Posterior Limb Internal Capsule on the left .His impairment category is Stroke 01 - Right Body (Left Brain) (01.2).Pre-morbidly, Pt. was in dependent/mod-I in Locomotion, Safety Awareness, Balance, Social Cognition, Transfers Control, Sphinc ter Control, Communication, Endurance, and Self-Care; and he had good Locomotion, Safety Awareness, B alance, Social Cognition, Transfers Control, Sphincter Control, Self-Care, Communication, and Enduran ce.Currently, he has deficits of Locomotion, Balance, Safety Awareness, Transfers Control, Social Cog nition, Sphincter Control, Self-Care, Communication, and Endurance.Pt. is now referred to [facility] for acute in-patient rehabilitation in order to maximize patient's functional independence in activities of daily living, strength, ROM, and mobility.- Rehab Goal Patient has realistic goal of being discharged at assistance level 6-Marlon to reside at Home with Att endant. MDM/PLAN: - Physical Therapy Gait dysfunction - to improve, our physical therapists will perform initial evaluation of pt's statu s upon admission and devise an individualized program for Gait Training, and Wheel Chair mobility Inability to transfer - to improve, our physical therapists will perform initial evaluation of pt's status upon admission and devise an individualized program for Bed mobility Need for home safety evaluation - to improve, our physical therapists will perform initial evaluatio n of pt's status upon admission and devise an individualized program for Home Evaluation Need in caregiver upon discharge - to improve, our physical therapists will perform initial evaluati on of pt's status upon admission and devise an individualized program for Caregiver Training New precaution - to improve, our physical therapists will perform initial evaluation of pt's status upon admission and devise an individualized program for Patient precaution education Edema - to improve, our physical therapists will perform initial evaluation of pt's status upon admis sarahy and devise an individualized program for Elevation Training, and Lymphedema Therapy Poor balance - to improve, our physical therapists will perform initial evaluation of pt's status up on admission and devise an individualized program for Balance Training Poor endurance - to improve, our physical therapists will perform initial evaluation of pt's status upon admission and devise an individualized program for Endurance Training Weakness - to improve, our physical therapists will perform initial evaluation of pt's status upon a dmission and devise an individualized program for Aquatic Therapy, Neuromuscular Reeducation, and Str engthening Achieving independence - to improve, our physical therapists will perform initial evaluation of pt's status upon admission and devise an individualized program for Community Reintegration Activities - Occupational Therapy ADL deficits - to improve, our occupation therapists will perform initial evaluation of pt's status upon admission and devise an individualized program for Bathing, Bed mobility, Community Reintegratio n, Cooking, Dressing, Eating, Fine Motor Skills, Grooming, Homemaking, Kitchen Mobility, Laundry, Pat ient Education, Safety Awareness, Splinting - Positioning, Transfers(Toilet, Tub, Shower), and Wheel Chair Management Cognitive deficits - to improve, our occupation therapists will perform initial evaluation of pt's s tatus upon admission and devise an individualized program for Cognition - orientation Need for acute care occupational therapist - to improve, our occupation therapists will perform initial evaluation of pt's status upon admission and devise an individualized program for Caregiver Training Weakness - to improve, our occupation therapists will perform initial evaluation of pt's status upon admission and devise an individualized program for Aquatic Therapy, Balance, Endurance, UE ROM, and UE strengthening - Other See attached MAR (Medication Administration Record) - Diet Type Continue Regular - Diet - Liquid Texture Continue Thin - Tube Feed Continue N/A - Bladder care per protocol - Weight Bearing Precaution WBAT right LE - Skin care per protocol - N/A Perform Neuro consult - Diet - Solid Texture Continue Regular Continue Mechanical Soft - Shower allowing shower for Dementia, TBI, Stroke, or others FUNCTIONAL STATUS: UPDATED AT WEEKLY TEAM CONFERENCE - Bladder Same accident frequency: 7-Ind - No accidents in the past 7 days - Bowel Same accident frequency: 7-Ind - No accidents in the past 7 days - Walking Same score based on distance walked: 0(N/A) Same score based on distance walked: 1(<=50ft) - Wheelchair Same score based on distance traveled: 0(N/A) FUNCTIONAL STATUS: - Self-Care A. Eating sup B. Grooming sup C. Bathing modA D. Dressing - Upper modA E. Dressing - Lower modA F. Toileting modA - Sphincter Control G. Bladder control sup H. Bowel control sup - Transfers Control I. Bed/Chair/Wheelchair Reynaldo J. Toilet Reynaldo K. Tub/Shower Reynaldo - Locomotion L. Walk/Wheelchair (B) Reynaldo M. Stairs modA - Communication N. Comprehension (B) sup O. Expression (B) Reynaldo - Social Cognition P. Social Interaction sup Q. Problem Solving sup R. Memory sup - Endurance Fair - Balance Fair - Safety Awareness Fair QI SCORES: - Self-Care A. Eating 05-Setup or clean-up assistance B. Oral hygiene 05-Setup or clean-up assistance C. Toileting hygiene 03-Partial/moderate assistance E. Shower/bathe self 03-Partial/moderate assistance F. Upper body dressing 03-Partial/moderate assistance G. Lower body dressing 03-Partial/moderate assistance H. Putting on/taking off footwear 02-Substantial/maximal assistance - Mobility A. Roll left and right 03-Partial/moderate assistance B. Sit to lying 03-Partial/moderate assistance C. Lying to sitting on side of bed 03-Partial/moderate assistance D. Sit to stand 03-Partial/moderate assistance E. Chair/eom-nf-vengg transfer 03-Partial/moderate assistance F. Toilet transfer 03-Partial/moderate assistance G. Car transfer 10-Not attempted due to environmental limitations I. Walk 10 feet 02-Substantial/maximal assistance J. Walk 50 feet with two turns 88-Not attempted due to medical condition or safety concerns K. Walk 150 feet 88-Not attempted due to medical condition or safety concerns L. Walking 10 feet on uneven surfaces 88-Not attempted due to medical condition or safety concerns M. 1 step (curb) 88-Not attempted due to medical condition or safety concerns N. 4 steps 88-Not attempted due to medical condition or safety concerns O. 12 steps 88-Not attempted due to medical condition or safety concerns P. Picking up object 88-Not attempted due to medical condition or safety concerns R. Wheel 50 feet with two turns 88-Not attempted due to medical condition or safety concerns S. Wheel 150 feet 88-Not attempted due to medical condition or safety concerns - Bladder and Bowel Bladder continence 0-Always continent Bowel continence 0-Always continent - Endurance Fair - Balance Fair - Safety Awareness Fair CURRENT FUNC. DEFICITS: Self-Care, Mobility, Endurance, Balance, and Safety Awareness SIGNATURE PANEL: ([employer]ER AND [employer]FFER)
[2019-05-03] MEDS: ATORVASTATIN 20 MG TAB PO SCH (21:09)
[2019-05-03] MEDS: PROMOD 30 ML DOSE PO SCH (21:12)
[2019-05-04] MEDS: TRAMADOL HCL 50 MG TAB PO PRN (08:03)
[2019-05-04] MEDS: TURMERIC ROOT EXTRACT PO SCH (08:04)
[2019-05-04] MEDS: FOLIC ACID 1 MG TABLET PO SCH (08:05)
[2019-05-04] MEDS: CLOPIDOGREL 75 MG TABLET PO SCH (08:05)
[2019-05-04] MEDS: ASPIRIN 81 MG CHEWABLE TABLET PO SCH (08:05)
[2019-05-04] MEDS: CARBIDOPA/LEVODOPA 25/100 TAB PO SCH ×4 (08:05→21:29)
[2019-05-04] MEDS: PROMOD 30 ML DOSE PO SCH ×2 (08:06→21:29)
--- NOTE | 2019-05-04 09:50 | P.RH.PN ---
Estimated Length of Stay: 19 Expected Discharge Date: 04/18/19 Discharge Disposition Plan: Home Family Support: Yes Assisted Goal: Mobility, Transfers, Self Care Vital Signs: Last Vital Signs Temp 97.2 F 05/04/19 08:42 Pulse 55 05/04/19 08:42 Resp 18 05/04/19 09:03 BP 150/75 H 05/04/19 08:42 Pulse Ox 98 05/04/19 09:03 Laboratory: Laboratory Last Values WBC 4.4 K/uL (4.3-10.9) D 05/03/19 05:37 RBC 3.59 M/uL (4.33-5.43) L 05/03/19 05:37 Hgb 11.9 g/dL (13.6-17.9) L 05/03/19 05:37 Hct 34.2 % (39.6-49.0) L 05/03/19 05:37 MCV 95.2 fL (80-100) 05/03/19 05:37 MCH 33.0 pg (27.0-35.0) 05/03/19 05:37 MCHC 34.7 g/dL (32.0-36.0) 05/03/19 05:37 RDW 14.1 % (12.1-15.2) 05/03/19 05:37 Plt Count 277 K/uL (152-406) 05/03/19 05:37 MPV 7.7 fL (7.6-11.3) 05/03/19 05:37 Neutrophils % 51.1 % (41.7-73.7) 05/03/19 05:37 Lymphocytes % 34.9 % (15.3-44.8) 05/03/19 05:37 Monocytes % 10.9 % (3.3-12.3) 05/03/19 05:37 Eosinophils % 2.2 % (0-4.4) 05/03/19 05:37 Basophils % 0.9 % (0-1.3) 05/03/19 05:37 Absolute Neutrophils 2.2 K/uL (1.8-8.0) 05/03/19 05:37 Absolute Lymphocytes 1.5 K/uL (0.7-4.9) 05/03/19 05:37 Absolute Monocytes 0.5 K/uL (0.1-1.3) 05/03/19 05:37 Absolute Eosinophils 0.1 K/uL (0-0.5) 05/03/19 05:37 Absolute Basophils 0.0 K/uL (0-0.5) 05/03/19 05:37 Sodium 139 mmol/L (136-145) 05/03/19 05:38 Potassium 4.2 mmol/L (3.5-5.1) 05/03/19 05:38 Chloride 106 mmol/L (98-107) 05/03/19 05:38 Carbon Dioxide 26 mmol/L (21-32) 05/03/19 05:38 BUN 26 mg/dL (7-18) H 05/03/19 05:38 Creatinine 0.93 mg/dL (0.55-1.3) 05/03/19 05:38 Estimated GFR 77 mL/min (=/>90) L 05/03/19 05:38 Glucose 94 mg/dL (74-106) 05/03/19 05:38 Calcium 8.6 mg/dL (8.5-10.1) 05/03/19 05:38 Magnesium 2.2 mg/dL (1.8-2.4) 05/03/19 05:38 Albumin 3.1 g/dL (3.4-5.0) L 05/04/19 05:30 Prealbumin 12.9 mg/dL (20-40) L 05/03/19 05:38 Urine Color Yellow 05/03/19 09:00 Urine Appearance Clear 05/03/19 09:00 Urine pH 6.0 (5.0-7.0) 05/03/19 09:00 Ur Specific [place] 1.025 (1.005-1.030) 05/03/19 09:00 Urine Ketones Negative (NEG) 05/03/19 09:00 Urine Blood Negative (NEG) 05/03/19 09:00 Urine Nitrite Negative (NEG) 05/03/19 09:00 Urine Bilirubin Negative (NEG) 05/03/19 09:00 Urine Urobilinogen 1.0 mg/dL (0.2-1.0) 05/03/19 09:00 Ur Leukocyte Esterase Trace (NEG) H 05/03/19 09:00 Urine RBC <5 /HPF (NONE SEEN) 05/03/19 09:00 Urine WBC 5-10 /HPF (<5) H 05/03/19 09:00 Ur Squamous Epith Cells 5-10 /HPF (NONE SEEN) H 05/03/19 09:00 Urine Bacteria 20-50 /HPF (NONE SEEN) H 05/03/19 09:00 Hyaline Casts 0-5 /LPF (NONE SEEN) 05/03/19 09:00 Urine Culture Reflexed Reflexed 05/03/19 09:00 Urine Glucose Negative (NEG) 05/03/19 09:00 Urine Total Protein Negative (NEG) 05/03/19 09:00 Weight: 146 lb 6 oz Wound Present: No Closed Surgical Incision Present: No Negative Pressure Wound Therapy Present: No Physician Update: Labs reviewed and are stable. He is doing fairly well but is slowed by Parkinson's disease. He is walking 90' and 80' at a time. He has festinating gait while walking within the walker. He should continue to improve with physical therapy. He is on mechanical soft diet. He has aspiration drinking with a straw. He is working hard. Pain Issues: Patient is taking Tylenol 500mg Q6H PO PRN and Tramadol 50mg Q8H PO PRN for pain. Functional Improvement: pt is responding well to gait training. pt has reduced shuffling gait pattern when slowing down gait and concentrating on 1 step at a time. We will continue to reinforce this proper pattern and gradually increase speed and look to perform continuous reciprocal gait. Speech Therapy Update: Patient is very pleasant and cooperative in therapy. However, he does exhibit some mild cognitive impairments, delayed initiation, and decreased insight into his deficits. Patient presents with mild-moderate dysarthria which fluctuates to moderate-severe when tired. Patient has mild dysphagia and is currently tolerating modified diet: mechanical soft solids, thin liquids (no straws), crushed meds. Summary: Patient's care plan and prison goals have been reviewed and revised as necessary. Please see the Rehabilitation Signature page for all necessary signatures.
--- NOTE | 2019-05-04 12:36 | FAST ---
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 River Pichardo M.D. ADMISSION DIAGNOSIS: - Stroke 01 - Right Body (Left Brain) (01.2) Nonhemorrhagic Acute Infarction in the Posterior Limb Internal Capsule on the left . - Neurologic Conditions 03 - Parkinsonism (03.2) Parkinsons Disease. EATING: Not assessed/no information CODE: - ORAL HYGIENE: Not assessed/no information CODE: - TOILETING HYGIENE: Not assessed/no information CODE: - BATHING: SHOWER/BATHE SELF - STEP 1: Does the patient complete the activity by him/herself with no assistance (physical, verbal/nonverbal cueing, setup/clean-up)? No. SHOWER/BATHE SELF - STEP 2: Does the patient need only setup/clean-up assistance from one helper? No. SHOWER/BATHE SELF - STEP 3: Does the patient need only verbal/nonverbal cueing or touching/steadying/contact guard assistance fro m one helper? Yes. 1. [id number] ADMISSION PERFORMANCE: Supervision or touching assistance CODE: 04 DRESSING - UPPER BODY: DRESSING - UPPER BODY - STEP 1: Does the patient complete the activity by him/herself with no assistance (physical, verbal/nonverbal cueing, setup/clean-up)? No. DRESSING - UPPER BODY - STEP 2: Does the patient need only setup/clean-up assistance from one helper? No. DRESSING - UPPER BODY - STEP 3: Does the patient need only verbal/nonverbal cueing or touching/steadying/contact guard assistance fro m one helper? Yes. 1. [id number] ADMISSION PERFORMANCE: Supervision or touching assistance CODE: 04 DRESSING - LOWER BODY: DRESSING - LOWER BODY - STEP 1: Does the patient complete the activity by him/herself with no assistance (physical, verbal/nonverbal cueing, setup/clean-up)? No. DRESSING - LOWER BODY - STEP 2: Does the patient need only setup/clean-up assistance from one helper? No. DRESSING - LOWER BODY - STEP 3: Does the patient need only verbal/nonverbal cueing or touching/steadying/contact guard assistance fro m one helper? Yes. 1. [id number] ADMISSION PERFORMANCE: Supervision or touching assistance CODE: 04 PUTTING ON/TAKING OFF FOOTWEAR: FOOTWEAR - STEP 1: Does the patient complete the activity by him/herself with no assistance (physical, verbal/nonverbal cueing, setup/clean-up)? No. FOOTWEAR - STEP 2: Does the patient need only setup/clean-up assistance from one helper? No. FOOTWEAR - STEP 3: Does the patient need only verbal/nonverbal cueing or touching/steadying/contact guard assistance fro m one helper? No. FOOTWEAR - STEP 4: Does the patient need physical assistance - for example lifting or trunk support from one helper - wi th the helper providing less than half of the effort? Yes. 1. [id number] ADMISSION PERFORMANCE: Partial/moderate assistance CODE: 03 DOES THE PATIENT USE A WHEELCHAIR/SCOOTER? CODE: EXPR INDICATE THE TYPE OF WHEELCHAIR/SCOOTER USED: CODE: EXPR INDICATE THE TYPE OF WHEELCHAIR/SCOOTER USED: CODE: EXPR BLADDER AND BOWEL: CODE: EXPR CODE: EXPR SIGNATURE PANEL: The following modified sections: 1. [id number] Admission Performance, 1. [id number] Admission Performance, 1. [id number] Admission Performance, 1. [id number] Admission Performance, 1. [id number] Admission Performance were [electronically] signed by Sena Grimaldo OT on TueMay 04 2019 12:34:56 GMT-0600 ([facility] Standard Time)
[2019-05-04] MEDS: ONDANSETRON 4 MG (ODT) TAB PO PRN (14:26)
[2019-05-04] MEDS: ENOXAPARIN 40 MG/0.4 ML SQ SCH (17:35)
[2019-05-04] MEDS: ATORVASTATIN 20 MG TAB PO SCH (21:29)
[2019-05-04] MEDS: DOCUSATE NA/SENNA CONC 1 TAB PO PRN (21:29)
[2019-05-04] MEDS: ACETAMINOPHEN 500 MG TAB PO PRN (21:31)
[2019-05-05] MEDS: ACETAMINOPHEN 500 MG TAB PO PRN (08:34)
[2019-05-05] MEDS: ASPIRIN 81 MG CHEWABLE TABLET PO SCH (08:35)
[2019-05-05] MEDS: CLOPIDOGREL 75 MG TABLET PO SCH (08:36)
[2019-05-05] MEDS: TURMERIC ROOT EXTRACT PO SCH (08:36)
[2019-05-05] MEDS: CARBIDOPA/LEVODOPA 25/100 TAB PO SCH ×4 (08:36→20:43)
[2019-05-05] MEDS: FOLIC ACID 1 MG TABLET PO SCH (08:36)
[2019-05-05] MEDS: PROMOD 30 ML DOSE PO SCH ×2 (08:37→20:43)
[2019-05-05] MEDS: ENOXAPARIN 40 MG/0.4 ML SQ SCH (17:33)
[2019-05-05] MEDS: ATORVASTATIN 20 MG TAB PO SCH (20:43)
[2019-05-05] MEDS: DOCUSATE NA/SENNA CONC 1 TAB PO PRN (20:44)
[2019-05-06] MEDS: TURMERIC ROOT EXTRACT PO SCH (09:10)
[2019-05-06] MEDS: LOSARTAN POTASSIUM 50 MG TABLET PO SCH ×2 (09:10→20:23)
[2019-05-06] MEDS: CARBIDOPA/LEVODOPA 25/100 TAB PO SCH ×4 (09:10→20:23)
[2019-05-06] MEDS: FOLIC ACID 1 MG TABLET PO SCH (09:11)
[2019-05-06] MEDS: PROMOD 30 ML DOSE PO SCH ×3 (09:11→20:23)
[2019-05-06] MEDS: ASPIRIN 81 MG CHEWABLE TABLET PO SCH (09:11)
[2019-05-06] MEDS: CLOPIDOGREL 75 MG TABLET PO SCH (09:11)
[2019-05-06] MEDS: levoFLOXacin 500 MG TAB PO SCH (09:13)
[2019-05-06] MEDS: MAGNESIUM HYDROXIDE 8% 30 ML PO PRN (09:15)
[2019-05-06] MEDS: ENOXAPARIN 40 MG/0.4 ML SQ SCH (16:31)
[2019-05-06] MEDS: ATORVASTATIN 20 MG TAB PO SCH (20:23)
[2019-05-07] MEDS: ONDANSETRON 4 MG (ODT) TAB PO PRN (04:08)
[2019-05-07] MEDS: PROMOD 30 ML DOSE PO SCH ×2 (08:00→20:00)
[2019-05-07] MEDS: levoFLOXacin 500 MG TAB PO SCH (08:00)
[2019-05-07] MEDS: FOLIC ACID 1 MG TABLET PO SCH (08:39)
[2019-05-07] MEDS: TURMERIC ROOT EXTRACT PO SCH (08:39)
[2019-05-07] MEDS: CLOPIDOGREL 75 MG TABLET PO SCH (08:39)
[2019-05-07] MEDS: LOSARTAN POTASSIUM 50 MG TABLET PO SCH ×2 (08:39→20:17)
[2019-05-07] MEDS: CARBIDOPA/LEVODOPA 25/100 TAB PO SCH ×4 (08:39→20:17)
[2019-05-07] MEDS: ASPIRIN 81 MG CHEWABLE TABLET PO SCH (08:39)
[2019-05-07 10:44] LABS: Absolute Lymphocytes (CBC) 1.1 K/uL (0.7-4.9); Basophils % 1.2 % (0-1.3); Lymphocytes % 21.7 % (15.3-44.8); MPV 7.3 fL (7.6-11.3); RBC Red Blood Cell Count 4.35 M/uL (4.33-5.43)
[2019-05-07 11:01] LABS: Potassium 4.2 mmol/L (3.5-5.1)
--- NOTE | 2019-05-07 14:37 | FAST ---
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 River Pichardo M.D. ADMISSION DIAGNOSIS: - Stroke 01 - Right Body (Left Brain) (01.2) Nonhemorrhagic Acute Infarction in the Posterior Limb Internal Capsule on the left . - Neurologic Conditions 03 - Parkinsonism (03.2) Parkinsons Disease. EATING: EATING - STEP 1: Does the patient complete the activity by him/herself with no assistance (physical, verbal/nonverbal cueing, setup/clean-up)? No. EATING - STEP 2: Does the patient need only setup/clean-up assistance from one helper? No. EATING - STEP 3: Does the patient need only verbal/nonverbal cueing or touching/steadying/contact guard assistance fro m one helper? No. EATING - STEP 4: Does the patient need physical assistance - for example lifting or trunk support from one helper - wi th the helper providing less than half of the effort? No. EATING - STEP 5: Does the patient need physical assistance - for example lifting or trunk support from one helper - wi th the helper providing more than half of the effort? Yes. 1. [id number] ADMISSION PERFORMANCE: Substantial/maximal assistance CODE: 02 ORAL HYGIENE: Not assessed/no information CODE: - TOILETING HYGIENE: TOILETING HYGIENE - STEP 1: Does the patient complete the activity by him/herself with no assistance (physical, verbal/nonverbal cueing, setup/clean-up)? No. TOILETING HYGIENE - STEP 2: Does the patient need only setup/clean-up assistance from one helper? No. TOILETING HYGIENE - STEP 3: Does the patient need only verbal/nonverbal cueing or touching/steadying/contact guard assistance fro m one helper? No. TOILETING HYGIENE - STEP 4: Does the patient need physical assistance - for example lifting or trunk support from one helper - wi th the helper providing less than half of the effort? No. TOILETING HYGIENE - STEP 5: Does the patient need physical assistance - for example lifting or trunk support from one helper - wi th the helper providing more than half of the effort? Yes. 1. [id number] ADMISSION PERFORMANCE: Substantial/maximal assistance CODE: 02 BATHING: Not assessed/no information CODE: - DRESSING - UPPER BODY: DRESSING - UPPER BODY - STEP 1: Does the patient complete the activity by him/herself with no assistance (physical, verbal/nonverbal cueing, setup/clean-up)? No. DRESSING - UPPER BODY - STEP 2: Does the patient need only setup/clean-up assistance from one helper? No. DRESSING - UPPER BODY - STEP 3: Does the patient need only verbal/nonverbal cueing or touching/steadying/contact guard assistance fro m one helper? No. DRESSING - UPPER BODY - STEP 4: Does the patient need physical assistance - for example lifting or trunk support from one helper - wi th the helper providing less than half of the effort? No. DRESSING - UPPER BODY - STEP 5: Does the patient need physical assistance - for example lifting or trunk support from one helper - wi th the helper providing more than half of the effort? Yes. 1. [id number] ADMISSION PERFORMANCE: Substantial/maximal assistance CODE: 02 DRESSING - LOWER BODY: DRESSING - LOWER BODY - STEP 1: Does the patient complete the activity by him/herself with no assistance (physical, verbal/nonverbal cueing, setup/clean-up)? No. DRESSING - LOWER BODY - STEP 2: Does the patient need only setup/clean-up assistance from one helper? No. DRESSING - LOWER BODY - STEP 3: Does the patient need only verbal/nonverbal cueing or touching/steadying/contact guard assistance fro m one helper? No. DRESSING - LOWER BODY - STEP 4: Does the patient need physical assistance - for example lifting or trunk support from one helper - wi th the helper providing less than half of the effort? No. DRESSING - LOWER BODY - STEP 5: Does the patient need physical assistance - for example lifting or trunk support from one helper - wi th the helper providing more than half of the effort? Yes. 1. [id number] ADMISSION PERFORMANCE: Substantial/maximal assistance CODE: 02 PUTTING ON/TAKING OFF FOOTWEAR: FOOTWEAR - STEP 1: Does the patient complete the activity by him/herself with no assistance (physical, verbal/nonverbal cueing, setup/clean-up)? No. FOOTWEAR - STEP 2: Does the patient need only setup/clean-up assistance from one helper? No. FOOTWEAR - STEP 3: Does the patient need only verbal/nonverbal cueing or touching/steadying/contact guard assistance fro m one helper? No. FOOTWEAR - STEP 4: Does the patient need physical assistance - for example lifting or trunk support from one helper - wi th the helper providing less than half of the effort? No. FOOTWEAR - STEP 5: Does the patient need physical assistance - for example lifting or trunk support from one helper - wi th the helper providing more than half of the effort? Yes. 1. [id number] ADMISSION PERFORMANCE: Substantial/maximal assistance CODE: 02 ROLL LEFT AND RIGHT: ROLL LEFT AND RIGHT - STEP 1: Does the patient complete the activity by him/herself with no assistance (physical, verbal/nonverbal cueing, setup/clean-up)? No. ROLL LEFT AND RIGHT - STEP 2: Does the patient need only setup/clean-up assistance from one helper? No. ROLL LEFT AND RIGHT - STEP 3: Does the patient need only verbal/nonverbal cueing or touching/steadying/contact guard assistance fro m one helper? No. ROLL LEFT AND RIGHT - STEP 4: Does the patient need physical assistance - for example lifting or trunk support from one helper - wi th the helper providing less than half of the effort? Yes. 1. [id number] ADMISSION PERFORMANCE: Partial/moderate assistance CODE: 03 SIT TO LYING: SIT TO LYING - STEP 1: Does the patient complete the activity by him/herself with no assistance (physical, verbal/nonverbal cueing, setup/clean-up)? No. SIT TO LYING - STEP 2: Does the patient need only setup/clean-up assistance from one helper? No. SIT TO LYING - STEP 3: Does the patient need only verbal/nonverbal cueing or touching/steadying/contact guard assistance fro m one helper? No. SIT TO LYING - STEP 4: Does the patient need physical assistance - for example lifting or trunk support from one helper - wi th the helper providing less than half of the effort? Yes. 1. [id number] ADMISSION PERFORMANCE: Partial/moderate assistance CODE: 03 LYING TO SITTING: LYING TO SITTING ON SIDE OF BED - STEP 1: Does the patient complete the activity by him/herself with no assistance (physical, verbal/nonverbal cueing, setup/clean-up)? No. LYING TO SITTING ON SIDE OF BED - STEP 2: Does the patient need only setup/clean-up assistance from one helper? No. LYING TO SITTING ON SIDE OF BED - STEP 3: Does the patient need only verbal/nonverbal cueing or touching/steadying/contact guard assistance fro m one helper? No. LYING TO SITTING ON SIDE OF BED - STEP 4: Does the patient need physical assistance - for example lifting or trunk support from one helper - wi th the helper providing less than half of the effort? Yes. 1. [id number] ADMISSION PERFORMANCE: Partial/moderate assistance CODE: 03 SIT TO STAND: SIT TO STAND - STEP 1: Does the patient complete the activity by him/herself with no assistance (physical, verbal/nonverbal cueing, setup/clean-up)? No. SIT TO STAND - STEP 2: Does the patient need only setup/clean-up assistance from one helper? No. SIT TO STAND - STEP 3: Does the patient need only verbal/nonverbal cueing or touching/steadying/contact guard assistance fro m one helper? No. SIT TO STAND - STEP 4: Does the patient need physical assistance - for example lifting or trunk support from one helper - wi th the helper providing less than half of the effort? Yes. 1. [id number] ADMISSION PERFORMANCE: Partial/moderate assistance CODE: 03 TRANSFERS: BED, CHAIR: CHAIR/[id number] TRANSFER - STEP 1: Does the patient complete the activity by him/herself with no assistance (physical, verbal/nonverbal cueing, setup/clean-up)? No. CHAIR/[id number] TRANSFER - STEP 2: Does the patient need only setup/clean-up assistance from one helper? No. CHAIR/[id number] TRANSFER - STEP 3: Does the patient need only verbal/nonverbal cueing or touching/steadying/contact guard assistance fro m one helper? No. CHAIR/[id number] TRANSFER - STEP 4: Does the patient need physical assistance - for example lifting or trunk support from one helper - wi th the helper providing less than half of the effort? Yes. 1. [id number] ADMISSION PERFORMANCE: Partial/moderate assistance CODE: 03 TRANSFER TOILET: TOILET TRANSFER - STEP 1: Does the patient complete the activity by him/herself with no assistance (physical, verbal/nonverbal cueing, setup/clean-up)? No. TOILET TRANSFER - STEP 2: Does the patient need only setup/clean-up assistance from one helper? No. TOILET TRANSFER - STEP 3: Does the patient need only verbal/nonverbal cueing or touching/steadying/contact guard assistance fro m one helper? No. TOILET TRANSFER - STEP 4: Does the patient need physical assistance - for example lifting or trunk support from one helper - wi th the helper providing less than half of the effort? Yes. 1. [id number] ADMISSION PERFORMANCE: Partial/moderate assistance CODE: 03 TRANSFERS: CAR: Not assessed/no information CODE: - WALK 10 FEET: Not assessed/no information CODE: - 1 STEP (CURB): Not assessed/no information CODE: - PICKING UP OBJECT: Not assessed/no information CODE: - DOES THE PATIENT USE A WHEELCHAIR/SCOOTER? Q1. DOES THE PATIENT USE A WHEELCHAIR/SCOOTER?: Yes CODE: 1 WHEEL 50 FEET WITH TWO TURNS: Not assessed/no information CODE: - INDICATE THE TYPE OF WHEELCHAIR/SCOOTER USED: RR1. INDICATE THE TYPE OF WHEELCHAIR/SCOOTER USED.: Manual CODE: 1 WHEEL 150 FEET: Not assessed/no information CODE: - INDICATE THE TYPE OF WHEELCHAIR/SCOOTER USED: CODE: EXPR BLADDER AND BOWEL: H350. BLADDER CONTINENCE (3-DAY ASSESSMENT PERIOD): Always incontinent CODE: 4 H400. BOWEL CONTINENCE (3-DAY ASSESSMENT PERIOD): Occasionally incontinent (one episode of bowel incontinence) CODE: 1 SIGNATURE PANEL: The following modified sections: 1. [id number] Admission Performance, 1. [id number] Admission Performance, 1. [id number] Admission Performance, 1. [id number] Admission Performance, 1. FY2848p Admission Performance, 1. [id number] Admission Performance, 1. [id number] Admission Performance, 1. [id number] Admission Performance , 1. [id number] Admission Performance, 1. [id number] Admission Performance, 1. [id number] Admission Performanc e, 1. [id number] Admission Performance, 1. [id number] Admission Performance, 1. [id number] Admission Performan ce, Q1. Does the patient use a wheelchair/scooter?, RR1. Indicate the type of wheelchair/scooter used ., Code, H350. Bladder Continence (3-day assessment period), H350. Bladder Continence (3-day assessme nt period), H400. Bowel Continence (3-day assessment period) were [electronically] signed by Mary FergusonNFrank on TueMay 07 2019 14:36:39 GMT-0600 (Central Standard Time)
--- NOTE | 2019-05-07 15:28 | RAD REPORT ---
EXAM DESCRIPTION: RAD - Abdomen 1 View (KUB) - 05/07/2019 2:59 pm CLINICAL HISTORY: Abdomen pain. constipation FINDINGS: The bowel gas pattern is unremarkable. Oral ingested contrast is present within the rectum and sigmoid diverticula Moderate amount of stool is seen within the colon. Marked osteoarthritis right hip
[2019-05-07] MEDS ORDERED: FLEET ENEMA ADULT PR PRN (16:02)
[2019-05-07] MEDS: ENOXAPARIN 40 MG/0.4 ML SQ SCH (16:08)
[2019-05-07] MEDS: BISACODYL 10 MG RECTAL SUPP PR PRN (16:08)
--- NOTE | 2019-05-07 18:05 | R.PN ---
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 Pt denied any Shortness of Breath. Ambulated 50' with minimum assistance using a rolling walker. WBC 4.9, Hgb 14.3, prealbumin 12.9, UA shows trace esterase and bacteria 20-50. VITAL SIGNS Temperature: 97.4 F SBP/DBP: 168/94 Pulse: 83 Resp: 16 MEDICATION ALLERGIES: No Known Drug Allergies (NKDA) ENVIRONMENTAL ALLERGIES: None Known - Substance Allergies None Known - Other Allergies None Known CONSULT: Perform Neuro consult NURSING: - Shower allowing shower - Bladder care per protocol - Skin care per protocol PRECAUTIONS: - Weight Bearing Precaution WBAT right LE ACTIVITIES OOB only with supervision THERAPIES: - Occupational Therapy Cognitive Retraining. Visual Perceptual Training. - Dietary and Nutrition Adequate Nutrition. Nutritional Education. Nutritional Supplements. - Speech Therapy Cognitive Training. Dysphagia Therapy. Expressive Language Skills. Memory Strategies. Receptive Langu age Skills. Speech Intelligibility Training. PHYSICAL EXAM - Gen Alert and awake Lying in bed No apparent distress Oriented to: person, time, and place - Skin No skin breakdown. No abnormalities - Eyes No abnormalities - ENMT No abnormalities - Neck No abnormalities - CVS RRR - Chest No abnormalities - Resp Clear to auscultation - Abd Soft - GI Non distended No abnormalities - No abnormalities - Ext No significant edema - MSK 4+/5 weakness in right upper and lower extremity - Neuro 4/5 strength right upper and lower extremities. - Psych No abnormalities ASSESSMENT: Pt. is a 83 yo Right-handed white male.On 04/25/2019 Pt. presented to [facility] with sudden onset of right-side weakness.On 04/25/2019 he was [facility] with diagnosis Nonhemorrhagic Acute Infarction in the Posterior Limb Internal Capsule on the left .His impairment category is Stroke 01 - Right Body (Left Brain) (01.2).Pre-morbidly, Pt. was in dependent/mod-I in Locomotion, Safety Awareness, Balance, Social Cognition, Transfers Control, Sphinc ter Control, Communication, Endurance, and Self-Care; and he had good Locomotion, Safety Awareness, B alance, Social Cognition, Transfers Control, Sphincter Control, Self-Care, Communication, and Enduran ce.Currently, he has deficits of Locomotion, Balance, Safety Awareness, Transfers Control, Social Cog nition, Sphincter Control, Self-Care, Communication, and Endurance.Pt. is now [facility] to [facility] for acute in-patient rehabilitation in order to maximize patient's functional independence in activities of daily living, strength, ROM, and mobility.- Rehab Goal Patient has realistic goal of being discharged at assistance level 6-Marlon to reside at Home with Att endant. MDM/PLAN: - Physical Therapy Gait dysfunction - to improve, our physical therapists will perform initial evaluation of pt's statu s upon admission and devise an individualized program for Gait Training, and Wheel Chair mobility Inability to transfer - to improve, our physical therapists will perform initial evaluation of pt's status upon admission and devise an individualized program for Bed mobility Need for home safety evaluation - to improve, our physical therapists will perform initial evaluatio n of pt's status upon admission and devise an individualized program for Home Evaluation Need in caregiver upon discharge - to improve, our physical therapists will perform initial evaluati on of pt's status upon admission and devise an individualized program for Caregiver Training New precaution - to improve, our physical therapists will perform initial evaluation of pt's status upon admission and devise an individualized program for Patient precaution education Edema - to improve, our physical therapists will perform initial evaluation of pt's status upon admi ssion and devise an individualized program for Elevation Training, and Lymphedema Therapy Poor balance - to improve, our physical therapists will perform initial evaluation of pt's status up on admission and devise an individualized program for Balance Training Poor endurance - to improve, our physical therapists will perform initial evaluation of pt's status upon admission and devise an individualized program for Endurance Training Weakness - to improve, our physical therapists will perform initial evaluation of pt's status upon a dmission and devise an individualized program for Aquatic Therapy, Neuromuscular Reeducation, and Str engthening Achieving independence - to improve, our physical therapists will perform initial evaluation of pt's status upon admission and devise an individualized program for Community Reintegration Activities - Occupational Therapy ADL deficits - to improve, our occupation therapists will perform initial evaluation of pt's status upon admission and devise an individualized program for Bathing, Bed mobility, Community Reintegratio n, Cooking, Dressing, Eating, Fine Motor Skills, Grooming, Homemaking, Kitchen Mobility, Laundry, Pat ient Education, Safety Awareness, Splinting - Positioning, Transfers(Toilet, Tub, Shower), and Wheel Chair Management Cognitive deficits - to improve, our occupation therapists will perform initial evaluation of pt's s tatus upon admission and devise an individualized program for Cognition - orientation Need for career placement specialist - to improve, our occupation therapists will perform initial evaluation of pt's status upon admission and devise an individualized program for Caregiver Training Weakness - to improve, our occupation therapists will perform initial evaluation of pt's status upon admission and devise an individualized program for Aquatic Therapy, Balance, Endurance, UE ROM, and UE strengthening - Other See attached MAR (Medication Administration Record) - Diet Type Continue Regular - Diet - Liquid Texture Continue Thin - Tube Feed Continue N/A - Bladder care per protocol - Weight Bearing Precaution WBAT right LE - Skin care per protocol - N/A Perform Neuro consult - Diet - Solid Texture Continue Regular Continue Mechanical Soft - Shower allowing shower for Dementia, TBI, Stroke, or others FUNCTIONAL STATUS: UPDATED AT WEEKLY TEAM CONFERENCE - Bladder Same accident frequency: 7-Ind - No accidents in the past 7 days - Bowel Same accident frequency: 7-Ind - No accidents in the past 7 days - Walking Same score based on distance walked: 0(N/A) Same score based on distance walked: 1(<=50ft) - Wheelchair Same score based on distance traveled: 0(N/A) FUNCTIONAL STATUS: - Self-Care A. Eating sup B. Grooming sup C. Bathing modA D. Dressing - Upper modA E. Dressing - Lower modA F. Toileting modA - Sphincter Control G. Bladder control sup H. Bowel control sup - Transfers Control I. Bed/Chair/Wheelchair Reynaldo J. Toilet Reynaldo K. Tub/Shower Reynaldo - Locomotion L. Walk/Wheelchair (B) Reynaldo M. Stairs modA - Communication N. Comprehension (B) sup O. Expression (B) Reynaldo - Social Cognition P. Social Interaction sup Q. Problem Solving sup R. Memory sup - Endurance Fair - Balance Fair - Safety Awareness Fair QI SCORES: - Self-Care A. Eating 05-Setup or clean-up assistance B. Oral hygiene 05-Setup or clean-up assistance C. Toileting hygiene 03-Partial/moderate assistance E. Shower/bathe self 03-Partial/moderate assistance F. Upper body dressing 03-Partial/moderate assistance G. Lower body dressing 03-Partial/moderate assistance H. Putting on/taking off footwear 02-Substantial/maximal assistance - Mobility A. Roll left and right 03-Partial/moderate assistance B. Sit to lying 03-Partial/moderate assistance C. Lying to sitting on side of bed 03-Partial/moderate assistance D. Sit to stand 03-Partial/moderate assistance E. Chair/fce-lw-dpaka transfer 03-Partial/moderate assistance F. Toilet transfer 03-Partial/moderate assistance G. Car transfer 10-Not attempted due to environmental limitations I. Walk 10 feet 02-Substantial/maximal assistance J. Walk 50 feet with two turns 88-Not attempted due to medical condition or safety concerns K. Walk 150 feet 88-Not attempted due to medical condition or safety concerns L. Walking 10 feet on uneven surfaces 88-Not attempted due to medical condition or safety concerns M. 1 step (curb) 88-Not attempted due to medical condition or safety concerns N. 4 steps 88-Not attempted due to medical condition or safety concerns O. 12 steps 88-Not attempted due to medical condition or safety concerns P. Picking up object 88-Not attempted due to medical condition or safety concerns R. Wheel 50 feet with two turns 88-Not attempted due to medical condition or safety concerns S. Wheel 150 feet 88-Not attempted due to medical condition or safety concerns - Bladder and Bowel Bladder continence 0-Always continent Bowel continence 0-Always continent - Endurance Fair - Balance Fair - Safety Awareness Fair CURRENT FUNC. DEFICITS: Self-Care, Mobility, Endurance, Balance, and Safety Awareness SIGNATURE PANEL: (GORE CUTTER)
[2019-05-07] MEDS: DOCUSATE NA/SENNA CONC 1 TAB PO SCH (20:17)
[2019-05-07] MEDS: ATORVASTATIN 20 MG TAB PO SCH (20:17)
[2019-05-08] MEDS: TURMERIC ROOT EXTRACT PO SCH (08:00)
[2019-05-08] MEDS: PROMOD 30 ML DOSE PO SCH ×2 (08:00→19:41)
[2019-05-08] MEDS: MEGESTROL 40 MG TAB PO SCH (08:15)
[2019-05-08] MEDS: LOSARTAN POTASSIUM 50 MG TABLET PO SCH ×2 (08:15→19:41)
[2019-05-08] MEDS: FOLIC ACID 1 MG TABLET PO SCH (08:15)
[2019-05-08] MEDS: ASPIRIN 81 MG CHEWABLE TABLET PO SCH (08:16)
[2019-05-08] MEDS: ACETAMINOPHEN 500 MG TAB PO PRN ×3 (08:16→19:41)
[2019-05-08] MEDS: CLOPIDOGREL 75 MG TABLET PO SCH (08:16)
[2019-05-08] MEDS: CARBIDOPA/LEVODOPA 25/100 TAB PO SCH ×4 (08:16→20:09)
[2019-05-08] MEDS: DULOXETINE 20 MG CAP PO SCH (08:17)
[2019-05-08] MEDS: MAGNESIUM HYDROXIDE 8% 30 ML PO PRN (11:40)
--- NOTE | 2019-05-08 12:08 | FAST ---
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 River Pichardo M.D. ADMISSION DIAGNOSIS: - Stroke 01 - Right Body (Left Brain) (01.2) Nonhemorrhagic Acute Infarction in the Posterior Limb Internal Capsule on the left . - Neurologic Conditions 03 - Parkinsonism (03.2) Parkinsons Disease. EATING: Not assessed/no information CODE: - ORAL HYGIENE: ORAL HYGIENE - STEP 1: Does the patient complete the activity by him/herself with no assistance (physical, verbal/nonverbal cueing, setup/clean-up)? No. ORAL HYGIENE - STEP 2: Does the patient need only setup/clean-up assistance from one helper? No. ORAL HYGIENE - STEP 3: Does the patient need only verbal/nonverbal cueing or touching/steadying/contact guard assistance fro m one helper? Yes. 1. [id number] ADMISSION PERFORMANCE: Supervision or touching assistance CODE: 04 TOILETING HYGIENE: Not assessed/no information CODE: - BATHING: SHOWER/BATHE SELF - STEP 1: Does the patient complete the activity by him/herself with no assistance (physical, verbal/nonverbal cueing, setup/clean-up)? No. SHOWER/BATHE SELF - STEP 2: Does the patient need only setup/clean-up assistance from one helper? No. SHOWER/BATHE SELF - STEP 3: Does the patient need only verbal/nonverbal cueing or touching/steadying/contact guard assistance fro m one helper? Yes. 1. [id number] ADMISSION PERFORMANCE: Supervision or touching assistance CODE: 04 DRESSING - UPPER BODY: DRESSING - UPPER BODY - STEP 1: Does the patient complete the activity by him/herself with no assistance (physical, verbal/nonverbal cueing, setup/clean-up)? No. DRESSING - UPPER BODY - STEP 2: Does the patient need only setup/clean-up assistance from one helper? No. DRESSING - UPPER BODY - STEP 3: Does the patient need only verbal/nonverbal cueing or touching/steadying/contact guard assistance fro m one helper? Yes. 1. [id number] ADMISSION PERFORMANCE: Supervision or touching assistance CODE: 04 DRESSING - LOWER BODY: DRESSING - LOWER BODY - STEP 1: Does the patient complete the activity by him/herself with no assistance (physical, verbal/nonverbal cueing, setup/clean-up)? No. DRESSING - LOWER BODY - STEP 2: Does the patient need only setup/clean-up assistance from one helper? No. DRESSING - LOWER BODY - STEP 3: Does the patient need only verbal/nonverbal cueing or touching/steadying/contact guard assistance fro m one helper? No. DRESSING - LOWER BODY - STEP 4: Does the patient need physical assistance - for example lifting or trunk support from one helper - wi th the helper providing less than half of the effort? Yes. 1. [id number] ADMISSION PERFORMANCE: Partial/moderate assistance CODE: 03 PUTTING ON/TAKING OFF FOOTWEAR: FOOTWEAR - STEP 1: Does the patient complete the activity by him/herself with no assistance (physical, verbal/nonverbal cueing, setup/clean-up)? No. FOOTWEAR - STEP 2: Does the patient need only setup/clean-up assistance from one helper? No. FOOTWEAR - STEP 3: Does the patient need only verbal/nonverbal cueing or touching/steadying/contact guard assistance fro m one helper? No. FOOTWEAR - STEP 4: Does the patient need physical assistance - for example lifting or trunk support from one helper - wi th the helper providing less than half of the effort? Yes. 1. [id number] ADMISSION PERFORMANCE: Partial/moderate assistance CODE: 03 DOES THE PATIENT USE A WHEELCHAIR/SCOOTER? CODE: EXPR INDICATE THE TYPE OF WHEELCHAIR/SCOOTER USED: CODE: EXPR INDICATE THE TYPE OF WHEELCHAIR/SCOOTER USED: CODE: EXPR BLADDER AND BOWEL: CODE: EXPR CODE: EXPR SIGNATURE PANEL: The following modified sections: 1. [id number] Admission Performance, 1. [id number] Admission Performance, 1. [id number] Admission Performance, 1. [id number] Admission Performance, 1. [id number] Admission Performance were [electronically] signed by NANCY Shrestha on TueMay 08 2019 12:08:08 GMT-0600 (Central Standard Time)
[2019-05-08] MEDS: ENOXAPARIN 40 MG/0.4 ML SQ SCH (16:38)
--- NOTE | 2019-05-08 18:19 | R.PN ---
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 Pt denied any Shortness of Breath. Ambulated 190' with contact guard assistance using a rolling walker. WBC 4.9, Hgb 14.3, prealbumin 12.9, UA shows trace esterase and bacteria 20-50. VITAL SIGNS Temperature: 97.4 F SBP/DBP: 144/85 Pulse: 88 Resp: 16 MEDICATION ALLERGIES: No Known Drug Allergies (NKDA) ENVIRONMENTAL ALLERGIES: None Known - Substance Allergies None Known - Other Allergies None Known CONSULT: Perform Neuro consult NURSING: - Shower allowing shower - Bladder care per protocol - Skin care per protocol PRECAUTIONS: - Weight Bearing Precaution WBAT right LE ACTIVITIES OOB only with supervision THERAPIES: - Occupational Therapy Cognitive Retraining. Visual Perceptual Training. - Dietary and Nutrition Adequate Nutrition. Nutritional Education. Nutritional Supplements. - Speech Therapy Cognitive Training. Dysphagia Therapy. Expressive Language Skills. Memory Strategies. Receptive Langu age Skills. Speech Intelligibility Training. PHYSICAL EXAM - Gen Alert and awake Lying in bed No apparent distress Oriented to: person, time, and place - Skin No skin breakdown. No abnormalities - Eyes No abnormalities - ENMT No abnormalities - Neck No abnormalities - CVS RRR - Chest No abnormalities - Resp Clear to auscultation - Abd Soft - GI Non distended No abnormalities - No abnormalities - Ext No significant edema - MSK 4+/5 weakness in right upper and lower extremity - Neuro 4/5 strength right upper and lower extremities. - Psych No abnormalities ASSESSMENT: Pt. is a 83 yo Right-handed white male.On 04/25/2019 Pt. presented to [facility] with sudden onset of right-side weakness.On 04/25/[address] [facility] Nonhemorrhagic Acute Infarction in the Posterior Limb Internal Capsule on the left .His impairment category is Stroke 01 - Right Body (Left Brain) (01.2).Pre-morbidly, Pt. was in dependent/mod-I in Locomotion, Safety Awareness, Balance, Social Cognition, Transfers Control, Sphinc ter Control, Communication, Endurance, and Self-Care; and he had good Locomotion, Safety Awareness, B alance, Social Cognition, Transfers Control, Sphincter Control, Self-Care, Communication, and Enduran ce.Currently, he has deficits of Locomotion, Balance, Safety Awareness, Transfers Control, Social Cog nition, Sphincter Control, Self-Care, Communication, and Endurance.Pt. is now referred to [facility] for acute in-patient rehabilitation in order to maximize patient's functional independence in activities of daily living, strength, ROM, and mobility.- Rehab Goal Patient has realistic goal of being discharged at assistance level 6-Marlon to reside at Home with Att endant. MDM/PLAN: - Physical Therapy Gait dysfunction - to improve, our physical therapists will perform initial evaluation of pt's statu s upon admission and devise an individualized program for Gait Training, and Wheel Chair mobility Inability to transfer - to improve, our physical therapists will perform initial evaluation of pt's status upon admission and devise an individualized program for Bed mobility Need for home safety evaluation - to improve, our physical therapists will perform initial evaluatio n of pt's status upon admission and devise an individualized program for Home Evaluation Need in caregiver upon discharge - to improve, our physical therapists will perform initial evaluati on of pt's status upon admission and devise an individualized program for Caregiver Training New precaution - to improve, our physical therapists will perform initial evaluation of pt's status upon admission and devise an individualized program for Patient precaution education Edema - to improve, our physical therapists will perform initial evaluation of pt's status upon admi ssion and devise an individualized program for Elevation Training, and Lymphedema Therapy Poor balance - to improve, our physical therapists will perform initial evaluation of pt's status up on admission and devise an individualized program for Balance Training Poor endurance - to improve, our physical therapists will perform initial evaluation of pt's status upon admission and devise an individualized program for Endurance Training Weakness - to improve, our physical therapists will perform initial evaluation of pt's status upon a dmission and devise an individualized program for Aquatic Therapy, Neuromuscular Reeducation, and Str engthening Achieving independence - to improve, our physical therapists will perform initial evaluation of pt's status upon admission and devise an individualized program for Community Reintegration Activities - Occupational Therapy ADL deficits - to improve, our occupation therapists will perform initial evaluation of pt's status upon admission and devise an individualized program for Bathing, Bed mobility, Community Reintegratio n, Cooking, Dressing, Eating, Fine Motor Skills, Grooming, Homemaking, Kitchen Mobility, Laundry, Pat ient Education, Safety Awareness, Splinting - Positioning, Transfers(Toilet, Tub, Shower), and Wheel Chair Management Cognitive deficits - to improve, our occupation therapists will perform initial evaluation of pt's s tatus upon admission and devise an individualized program for Cognition - orientation Need for career based intervention coordinator - to improve, our occupation therapists will perform initial evaluation of pt's status upon admission and devise an individualized program for Caregiver Training Weakness - to improve, our occupation therapists will perform initial evaluation of pt's status upon admission and devise an individualized program for Aquatic Therapy, Balance, Endurance, UE ROM, and UE strengthening - Other See attached MAR (Medication Administration Record) - Diet Type Continue Regular - Diet - Liquid Texture Continue Thin - Tube Feed Continue N/A - Bladder care per protocol - Weight Bearing Precaution WBAT right LE - Skin care per protocol - N/A Perform Neuro consult - Diet - Solid Texture Continue Regular Continue Mechanical Soft - Shower allowing shower for Dementia, TBI, Stroke, or others FUNCTIONAL STATUS: UPDATED AT WEEKLY TEAM CONFERENCE - Bladder Same accident frequency: 7-Ind - No accidents in the past 7 days - Bowel Same accident frequency: 7-Ind - No accidents in the past 7 days - Walking Same score based on distance walked: 0(N/A) Same score based on distance walked: 1(<=50ft) - Wheelchair Same score based on distance traveled: 0(N/A) FUNCTIONAL STATUS: - Self-Care A. Eating sup B. Grooming sup C. Bathing modA D. Dressing - Upper modA E. Dressing - Lower modA F. Toileting modA - Sphincter Control G. Bladder control sup H. Bowel control sup - Transfers Control I. Bed/Chair/Wheelchair Reynaldo J. Toilet Reynaldo K. Tub/Shower Reynaldo - Locomotion L. Walk/Wheelchair (B) Reynaldo M. Stairs modA - Communication N. Comprehension (B) sup O. Expression (B) Reynaldo - Social Cognition P. Social Interaction sup Q. Problem Solving sup R. Memory sup - Endurance Fair - Balance Fair - Safety Awareness Fair QI SCORES: - Self-Care A. Eating 05-Setup or clean-up assistance B. Oral hygiene 05-Setup or clean-up assistance C. Toileting hygiene 03-Partial/moderate assistance E. Shower/bathe self 03-Partial/moderate assistance F. Upper body dressing 03-Partial/moderate assistance G. Lower body dressing 03-Partial/moderate assistance H. Putting on/taking off footwear 02-Substantial/maximal assistance - Mobility A. Roll left and right 03-Partial/moderate assistance B. Sit to lying 03-Partial/moderate assistance C. Lying to sitting on side of bed 03-Partial/moderate assistance D. Sit to stand 03-Partial/moderate assistance E. Chair/czs-wa-syoao transfer 03-Partial/moderate assistance F. Toilet transfer 03-Partial/moderate assistance G. Car transfer 10-Not attempted due to environmental limitations I. Walk 10 feet 02-Substantial/maximal assistance J. Walk 50 feet with two turns 88-Not attempted due to medical condition or safety concerns K. Walk 150 feet 88-Not attempted due to medical condition or safety concerns L. Walking 10 feet on uneven surfaces 88-Not attempted due to medical condition or safety concerns M. 1 step (curb) 88-Not attempted due to medical condition or safety concerns N. 4 steps 88-Not attempted due to medical condition or safety concerns O. 12 steps 88-Not attempted due to medical condition or safety concerns P. Picking up object 88-Not attempted due to medical condition or safety concerns R. Wheel 50 feet with two turns 88-Not attempted due to medical condition or safety concerns S. Wheel 150 feet 88-Not attempted due to medical condition or safety concerns - Bladder and Bowel Bladder continence 0-Always continent Bowel continence 0-Always continent - Endurance Fair - Balance Fair - Safety Awareness Fair CURRENT FUNC. 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
[2019-05-08] MEDS: ATORVASTATIN 20 MG TAB PO SCH (20:09)
[2019-05-08] MEDS: DOCUSATE NA/SENNA CONC 1 TAB PO SCH (20:09)
[2019-05-09] MEDS: TURMERIC ROOT EXTRACT PO SCH (08:00)
[2019-05-09] MEDS: PROMOD 30 ML DOSE PO SCH ×2 (08:00→20:00)
[2019-05-09] MEDS: ACETAMINOPHEN 500 MG TAB PO PRN (08:27)
[2019-05-09] MEDS: LOSARTAN POTASSIUM 50 MG TABLET PO SCH ×2 (08:27→20:55)
[2019-05-09] MEDS: MEGESTROL 40 MG TAB PO SCH (08:27)
[2019-05-09] MEDS: CARBIDOPA/LEVODOPA 25/100 TAB PO SCH ×4 (08:27→20:55)
[2019-05-09] MEDS: ASPIRIN 81 MG CHEWABLE TABLET PO SCH (08:27)
[2019-05-09] MEDS: DULOXETINE 20 MG CAP PO SCH (08:27)
[2019-05-09] MEDS: CLOPIDOGREL 75 MG TABLET PO SCH (08:27)
[2019-05-09] MEDS: FOLIC ACID 1 MG TABLET PO SCH (08:27)
[2019-05-09] MEDS: ENOXAPARIN 40 MG/0.4 ML SQ SCH (17:26)
--- NOTE | 2019-05-09 18:31 | R.PN ---
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 Pt denied any Shortness of Breath. Ambulated 190' with contact guard assistance using a rolling walker. WBC 4.9, Hgb 14.3, prealbumin 12.9, UA shows trace esterase and bacteria 20-50. VITAL SIGNS Temperature: 98.7 F SBP/DBP: 115/68 Pulse: 57 Resp: 14 MEDICATION ALLERGIES: No Known Drug Allergies (NKDA) ENVIRONMENTAL ALLERGIES: None Known - Substance Allergies None Known - Other Allergies None Known CONSULT: Perform Neuro consult NURSING: - Shower allowing shower - Bladder care per protocol - Skin care per protocol PRECAUTIONS: - Weight Bearing Precaution WBAT right LE ACTIVITIES OOB only with supervision THERAPIES: - Occupational Therapy Cognitive Retraining. Visual Perceptual Training. - Dietary and Nutrition Adequate Nutrition. Nutritional Education. Nutritional Supplements. - Speech Therapy Cognitive Training. Dysphagia Therapy. Expressive Language Skills. Memory Strategies. Receptive Langu age Skills. Speech Intelligibility Training. PHYSICAL EXAM - Gen Alert and awake Lying in bed No apparent distress Oriented to: person, time, and place - Skin No skin breakdown. No abnormalities - Eyes No abnormalities - ENMT No abnormalities - Neck No abnormalities - CVS RRR - Chest No abnormalities - Resp Clear to auscultation - Abd Soft - GI Non distended No abnormalities - No abnormalities - Ext No significant edema - MSK 4+/5 weakness in right upper and lower extremity - Neuro 4/5 strength right upper and lower extremities. - Psych No abnormalities ASSESSMENT: Pt. is a 83 yo Right-handed white male.On 04/25/2019 Pt. presented to [facility] with sudden onset of right-side weakness.On 04/25/2019 [facility] with diagnosis Nonhemorrhagic Acute Infarction in the Posterior Limb Internal Capsule on the left .His impairment category is Stroke 01 - Right Body (Left Brain) (01.2).Pre-morbidly, Pt. was in dependent/mod-I in Locomotion, Safety Awareness, Balance, Social Cognition, Transfers Control, Sphinc ter Control, Communication, Endurance, and Self-Care; and he had good Locomotion, Safety Awareness, B alance, Social Cognition, Transfers Control, Sphincter Control, Self-Care, Communication, and Enduran ce.Currently, he has deficits of Locomotion, Balance, Safety Awareness, Transfers Control, Social Cog nition, Sphincter Control, Self-Care, Communication, and Endurance.Pt. is now referred to [facility] for acute in-patient rehabilitation in order to maximize patient's functional independence in activities of daily living, strength, ROM, and mobility.- Rehab Goal Patient has realistic goal of being discharged at assistance level 6-Marlon to reside at Home with Att endant. MDM/PLAN: - Physical Therapy Gait dysfunction - to improve, our physical therapists will perform initial evaluation of pt's statu s upon admission and devise an individualized program for Gait Training, and Wheel Chair mobility Inability to transfer - to improve, our physical therapists will perform initial evaluation of pt's status upon admission and devise an individualized program for Bed mobility Need for home safety evaluation - to improve, our physical therapists will perform initial evaluatio n of pt's status upon admission and devise an individualized program for Home Evaluation Need in caregiver upon discharge - to improve, our physical therapists will perform initial evaluati on of pt's status upon admission and devise an individualized program for Caregiver Training New precaution - to improve, our physical therapists will perform initial evaluation of pt's status upon admission and devise an individualized program for Patient precaution education Edema - to improve, our physical therapists will perform initial evaluation of pt's status upon admi ssion and devise an individualized program for Elevation Training, and Lymphedema Therapy Poor balance - to improve, our physical therapists will perform initial evaluation of pt's status up on admission and devise an individualized program for Balance Training Poor endurance - to improve, our physical therapists will perform initial evaluation of pt's status upon admission and devise an individualized program for Endurance Training Weakness - to improve, our physical therapists will perform initial evaluation of pt's status upon a dmission and devise an individualized program for Aquatic Therapy, Neuromuscular Reeducation, and Str engthening Achieving independence - to improve, our physical therapists will perform initial evaluation of pt's status upon admission and devise an individualized program for Community Reintegration Activities - Occupational Therapy ADL deficits - to improve, our occupation therapists will perform initial evaluation of pt's status upon admission and devise an individualized program for Bathing, Bed mobility, Community Reintegratio n, Cooking, Dressing, Eating, Fine Motor Skills, Grooming, Homemaking, Kitchen Mobility, Laundry, Pat ient Education, Safety Awareness, Splinting - Positioning, Transfers(Toilet, Tub, Shower), and Wheel Chair Management Cognitive deficits - to improve, our occupation therapists will perform initial evaluation of pt's s tatus upon admission and devise an individualized program for Cognition - orientation Need for career services officer - to improve, our occupation therapists will perform initial evaluation of pt's status upon admission and devise an individualized program for Caregiver Training Weakness - to improve, our occupation therapists will perform initial evaluation of pt's status upon admission and devise an individualized program for Aquatic Therapy, Balance, Endurance, UE ROM, and UE strengthening - Other See attached MAR (Medication Administration Record) - Diet Type Continue Regular - Diet - Liquid Texture Continue Thin - Tube Feed Continue N/A - Bladder care per protocol - Weight Bearing Precaution WBAT right LE - Skin care per protocol - N/A Perform Neuro consult - Diet - Solid Texture Continue Regular Continue Mechanical Soft - Shower allowing shower for Dementia, TBI, Stroke, or others FUNCTIONAL STATUS: UPDATED AT WEEKLY TEAM CONFERENCE - Bladder Same accident frequency: 7-Ind - No accidents in the past 7 days - Bowel Same accident frequency: 7-Ind - No accidents in the past 7 days - Walking Same score based on distance walked: 0(N/A) Same score based on distance walked: 1(<=50ft) - Wheelchair Same score based on distance traveled: 0(N/A) FUNCTIONAL STATUS: - Self-Care A. Eating sup B. Grooming sup C. Bathing modA D. Dressing - Upper modA E. Dressing - Lower modA F. Toileting modA - Sphincter Control G. Bladder control sup H. Bowel control sup - Transfers Control I. Bed/Chair/Wheelchair Reynaldo J. Toilet Reynaldo K. Tub/Shower Reynaldo - Locomotion L. Walk/Wheelchair (B) Reynaldo M. Stairs modA - Communication N. Comprehension (B) sup O. Expression (B) Reynaldo - Social Cognition P. Social Interaction sup Q. Problem Solving sup R. Memory sup - Endurance Fair - Balance Fair - Safety Awareness Fair QI SCORES: - Self-Care A. Eating 05-Setup or clean-up assistance B. Oral hygiene 05-Setup or clean-up assistance C. Toileting hygiene 03-Partial/moderate assistance E. Shower/bathe self 03-Partial/moderate assistance F. Upper body dressing 03-Partial/moderate assistance G. Lower body dressing 03-Partial/moderate assistance H. Putting on/taking off footwear 02-Substantial/maximal assistance - Mobility A. Roll left and right 03-Partial/moderate assistance B. Sit to lying 03-Partial/moderate assistance C. Lying to sitting on side of bed 03-Partial/moderate assistance D. Sit to stand 03-Partial/moderate assistance E. Chair/flm-[id number] transfer 03-Partial/moderate assistance F. Toilet transfer 03-Partial/moderate assistance G. Car transfer 10-Not attempted due to environmental limitations I. Walk 10 feet 02-Substantial/maximal assistance J. Walk 50 feet with two turns 88-Not attempted due to medical condition or safety concerns K. Walk 150 feet 88-Not attempted due to medical condition or safety concerns L. Walking 10 feet on uneven surfaces 88-Not attempted due to medical condition or safety concerns M. 1 step (curb) 88-Not attempted due to medical condition or safety concerns N. 4 steps 88-Not attempted due to medical condition or safety concerns O. 12 steps 88-Not attempted due to medical condition or safety concerns P. Picking up object 88-Not attempted due to medical condition or safety concerns R. Wheel 50 feet with two turns 88-Not attempted due to medical condition or safety concerns S. Wheel 150 feet 88-Not attempted due to medical condition or safety concerns - Bladder and Bowel Bladder continence 0-Always continent Bowel continence 0-Always continent - Endurance Fair - Balance Fair - Safety Awareness Fair CURRENT FUNC. DEFICITS: Self-Care, Mobility, Endurance, Balance, and Safety Awareness SIGNATURE PANEL: (DOOR OPENER)
[2019-05-09] MEDS: ATORVASTATIN 20 MG TAB PO SCH (20:55)
[2019-05-09] MEDS: DOCUSATE NA/SENNA CONC 1 TAB PO SCH (20:55)
[2019-05-09] MEDS: ENSURE HIGH PROTEIN 237 ML CAN PO SCH (20:56)
[2019-05-10 06:37] LABS: Absolute Lymphocytes (CBC) 1.6 K/uL (0.7-4.9); Basophils % 0.8 % (0-1.3); Hematocrit 35.9 % (39.6-49.0); Lymphocytes % 29.2 % (15.3-44.8); MPV 7.9 fL (7.6-11.3); RBC Red Blood Cell Count 3.77 M/uL (4.33-5.43)
[2019-05-10 07:02] LABS: Albumin 3.2 g/dL (3.4-5.0); Magnesium 2.5 mg/dL (1.8-2.4); Prealbumin 19.2 mg/dL (20-40)
[2019-05-10] MEDS: PROMOD 30 ML DOSE PO SCH ×2 (08:00→19:07)
[2019-05-10] MEDS: ENSURE HIGH PROTEIN 237 ML CAN PO SCH ×2 (08:00→19:07)
[2019-05-10] MEDS: ASPIRIN 81 MG CHEWABLE TABLET PO SCH (08:28)
[2019-05-10] MEDS: TURMERIC ROOT EXTRACT PO SCH (08:28)
[2019-05-10] MEDS: CLOPIDOGREL 75 MG TABLET PO SCH (08:28)
[2019-05-10] MEDS: CARBIDOPA/LEVODOPA 25/100 TAB PO SCH ×4 (08:28→19:07)
[2019-05-10] MEDS: LOSARTAN POTASSIUM 50 MG TABLET PO SCH ×2 (08:28→19:06)
[2019-05-10] MEDS: DULOXETINE 20 MG CAP PO SCH (08:28)
[2019-05-10] MEDS: FOLIC ACID 1 MG TABLET PO SCH (08:28)
[2019-05-10] MEDS: MEGESTROL 40 MG TAB PO SCH (08:29)
[2019-05-10] MEDS: ACETAMINOPHEN 500 MG TAB PO PRN ×2 (08:29→19:06)
--- NOTE | 2019-05-10 11:16 | FAST ---
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 River Pichardo M.D. ADMISSION DIAGNOSIS: - Stroke 01 - Right Body (Left Brain) (01.2) Nonhemorrhagic Acute Infarction in the Posterior Limb Internal Capsule on the left . - Neurologic Conditions 03 - Parkinsonism (03.2) Parkinsons Disease. EATING: EATING - STEP 1: Does the patient complete the activity by him/herself with no assistance (physical, verbal/nonverbal cueing, setup/clean-up)? No. EATING - STEP 2: Does the patient need only setup/clean-up assistance from one helper? No. EATING - STEP 3: Does the patient need only verbal/nonverbal cueing or touching/steadying/contact guard assistance fro m one helper? Yes. 1. [id number] ADMISSION PERFORMANCE: Supervision or touching assistance CODE: 04 ORAL HYGIENE: ORAL HYGIENE - STEP 1: Does the patient complete the activity by him/herself with no assistance (physical, verbal/nonverbal cueing, setup/clean-up)? No. ORAL HYGIENE - STEP 2: Does the patient need only setup/clean-up assistance from one helper? No. ORAL HYGIENE - STEP 3: Does the patient need only verbal/nonverbal cueing or touching/steadying/contact guard assistance fro m one helper? No. ORAL HYGIENE - STEP 4: Does the patient need physical assistance - for example lifting or trunk support from one helper - wi th the helper providing less than half of the effort? Yes. 1. [id number] ADMISSION PERFORMANCE: Partial/moderate assistance CODE: 03 TOILETING HYGIENE: TOILETING HYGIENE - STEP 1: Does the patient complete the activity by him/herself with no assistance (physical, verbal/nonverbal cueing, setup/clean-up)? No. TOILETING HYGIENE - STEP 2: Does the patient need only setup/clean-up assistance from one helper? No. TOILETING HYGIENE - STEP 3: Does the patient need only verbal/nonverbal cueing or touching/steadying/contact guard assistance fro m one helper? No. TOILETING HYGIENE - STEP 4: Does the patient need physical assistance - for example lifting or trunk support from one helper - wi th the helper providing less than half of the effort? Yes. 1. [id number] ADMISSION PERFORMANCE: Partial/moderate assistance CODE: 03 BATHING: Not assessed/no information CODE: - DRESSING - UPPER BODY: Not assessed/no information CODE: - DRESSING - LOWER BODY: Not assessed/no information CODE: - PUTTING ON/TAKING OFF FOOTWEAR: Not assessed/no information CODE: - ROLL LEFT AND RIGHT: Not assessed/no information CODE: - SIT TO LYING: Not assessed/no information CODE: - LYING TO SITTING: Not assessed/no information CODE: - SIT TO STAND: Not assessed/no information CODE: - TRANSFERS: BED, CHAIR: CHAIR/[id number] TRANSFER - STEP 1: Does the patient complete the activity by him/herself with no assistance (physical, verbal/nonverbal cueing, setup/clean-up)? No. CHAIR/[id number] TRANSFER - STEP 2: Does the patient need only setup/clean-up assistance from one helper? No. CHAIR/[id number] TRANSFER - STEP 3: Does the patient need only verbal/nonverbal cueing or touching/steadying/contact guard assistance fro m one helper? No. CHAIR/SIN-WM-HAZIM TRANSFER - STEP 4: Does the patient need physical assistance - for example lifting or trunk support from one helper - wi th the helper providing less than half of the effort? Yes. 1. [id number] ADMISSION PERFORMANCE: Partial/moderate assistance CODE: 03 TRANSFER TOILET: TOILET TRANSFER - STEP 1: Does the patient complete the activity by him/herself with no assistance (physical, verbal/nonverbal cueing, setup/clean-up)? No. TOILET TRANSFER - STEP 2: Does the patient need only setup/clean-up assistance from one helper? No. TOILET TRANSFER - STEP 3: Does the patient need only verbal/nonverbal cueing or touching/steadying/contact guard assistance fro m one helper? No. TOILET TRANSFER - STEP 4: Does the patient need physical assistance - for example lifting or trunk support from one helper - wi th the helper providing less than half of the effort? Yes. 1. [id number] ADMISSION PERFORMANCE: Partial/moderate assistance CODE: 03 TRANSFERS: CAR: Not assessed/no information CODE: - WALK 10 FEET: Not assessed/no information CODE: - 1 STEP (CURB): Not assessed/no information CODE: - PICKING UP OBJECT: Not assessed/no information CODE: - DOES THE PATIENT USE A WHEELCHAIR/SCOOTER? CODE: EXPR WHEEL 50 FEET WITH TWO TURNS: Not assessed/no information CODE: - INDICATE THE TYPE OF WHEELCHAIR/SCOOTER USED: CODE: EXPR WHEEL 150 FEET: Not assessed/no information CODE: - INDICATE THE TYPE OF WHEELCHAIR/SCOOTER USED: CODE: EXPR BLADDER AND BOWEL: H350. BLADDER CONTINENCE (3-DAY ASSESSMENT PERIOD): Always continent (no documented incontinence) CODE: 0 H400. BOWEL CONTINENCE (3-DAY ASSESSMENT PERIOD): Always continent CODE: 0 SIGNATURE PANEL: The following modified sections: 1. [id number] Admission Performance, 1. [id number] Admission Performance, 1. [id number] Admission Performance, 1. [id number] Admission Performance, 1. [id number] Admission Performance, 1. [id number] Admission Performance, Code, H350. Bladder Continence (3-day assessment period), H400. Baldemar wel Continence (3-day assessment period) were [electronically] signed by Christian Calvillo on TueMay 10 202 0 11:15:44 GMT-0600 (Central Standard Time)
--- NOTE | 2019-05-10 15:47 | FAST ---
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 River Pichardo M.D. ADMISSION DIAGNOSIS: - Stroke 01 - Right Body (Left Brain) (01.2) Nonhemorrhagic Acute Infarction in the Posterior Limb Internal Capsule on the left . - Neurologic Conditions 03 - Parkinsonism (03.2) Parkinsons Disease. ROLL LEFT AND RIGHT: Not assessed/no information CODE: - SIT TO LYING: Not assessed/no information CODE: - LYING TO SITTING: Not assessed/no information CODE: - SIT TO STAND: SIT TO STAND - STEP 1: Does the patient complete the activity by him/herself with no assistance (physical, verbal/nonverbal cueing, setup/clean-up)? No. SIT TO STAND - STEP 2: Does the patient need only setup/clean-up assistance from one helper? No. SIT TO STAND - STEP 3: Does the patient need only verbal/nonverbal cueing or touching/steadying/contact guard assistance fro m one helper? Yes. 1. [id number] ADMISSION PERFORMANCE: Supervision or touching assistance CODE: 04 TRANSFERS: BED, CHAIR: CHAIR/[id number] TRANSFER - STEP 1: Does the patient complete the activity by him/herself with no assistance (physical, verbal/nonverbal cueing, setup/clean-up)? No. CHAIR/[id number] TRANSFER - STEP 2: Does the patient need only setup/clean-up assistance from one helper? No. CHAIR/WDZ-NL-[id number] TRANSFER - STEP 3: Does the patient need only verbal/nonverbal cueing or touching/steadying/contact guard assistance fro m one helper? Yes. 1. [id number] ADMISSION PERFORMANCE: Supervision or touching assistance CODE: 04 TRANSFER TOILET: Not assessed/no information CODE: - TRANSFERS: CAR: Not assessed/no information CODE: - WALK 10 FEET: WALK 10 FEET - STEP 1: Does the patient complete the activity by him/herself with no assistance (physical, verbal/nonverbal cueing, setup/clean-up)? No. WALK 10 FEET - STEP 2: Does the patient need only setup/clean-up assistance from one helper? No. WALK 10 FEET - STEP 3: Does the patient need only verbal/nonverbal cueing or touching/steadying/contact guard assistance fro m one helper? No. WALK 10 FEET - STEP 4: Does the patient need physical assistance - for example lifting or trunk support from one helper - wi th the helper providing less than half of the effort? Yes. 1. [id number] ADMISSION PERFORMANCE: Partial/moderate assistance CODE: 03 WALK 50 FEET: WALK 50 FEET - STEP 1: Does the patient complete the activity by him/herself with no assistance (physical, verbal/nonverbal cueing, setup/clean-up)? No. WALK 50 FEET - STEP 2: Does the patient need only setup/clean-up assistance from one helper? No. WALK 50 FEET - STEP 3: Does the patient need only verbal/nonverbal cueing or touching/steadying/contact guard assistance fro m one helper? No. WALK 50 FEET - STEP 4: Does the patient need physical assistance - for example lifting or trunk support from one helper - wi th the helper providing less than half of the effort? Yes. 1. [id number] ADMISSION PERFORMANCE: Partial/moderate assistance CODE: 03 WALK 150 FEET: WALK 150 FEET - STEP 1: Does the patient complete the activity by him/herself with no assistance (physical, verbal/nonverbal cueing, setup/clean-up)? No. WALK 150 FEET - STEP 2: Does the patient need only setup/clean-up assistance from one helper? No. WALK 150 FEET - STEP 3: Does the patient need only verbal/nonverbal cueing or touching/steadying/contact guard assistance fro m one helper? No. WALK 150 FEET - STEP 4: Does the patient need physical assistance - for example lifting or trunk support from one helper - wi th the helper providing less than half of the effort? Yes. 1. [id number] ADMISSION PERFORMANCE: Partial/moderate assistance CODE: 03 WALK 10 FEET UNEVEN: Not assessed/no information CODE: - 1 STEP (CURB): Not assessed/no information CODE: - PICKING UP OBJECT: Not assessed/no information CODE: - DOES THE PATIENT USE A WHEELCHAIR/SCOOTER? Q1. DOES THE PATIENT USE A WHEELCHAIR/SCOOTER?: Yes CODE: 1 WHEEL 50 FEET WITH TWO TURNS: WHEEL 50 FEET WITH TWO TURNS - STEP 1: Does the patient complete the activity by him/herself with no assistance (physical, verbal/nonverbal cueing, setup/clean-up)? No. WHEEL 50 FEET WITH TWO TURNS - STEP 2: Does the patient need only setup/clean-up assistance from one helper? No. WHEEL 50 FEET WITH TWO TURNS - STEP 3: Does the patient need only verbal/nonverbal cueing or touching/steadying/contact guard assistance fro m one helper? No. WHEEL 50 FEET WITH TWO TURNS - STEP 4: Does the patient need physical assistance - for example lifting or trunk support from one helper - wi th the helper providing less than half of the effort? No. WHEEL 50 FEET WITH TWO TURNS - STEP 5: Does the patient need physical assistance - for example lifting or trunk support from one helper - wi th the helper providing more than half of the effort? Yes. 1. [id number] ADMISSION PERFORMANCE: Substantial/maximal assistance CODE: 02 INDICATE THE TYPE OF WHEELCHAIR/SCOOTER USED: RR1. INDICATE THE TYPE OF WHEELCHAIR/SCOOTER USED.: Manual CODE: 1 WHEEL 150 FEET: WHEEL 150 FEET - STEP 1: Does the patient complete the activity by him/herself with no assistance (physical, verbal/nonverbal cueing, setup/clean-up)? No. WHEEL 150 FEET - STEP 2: Does the patient need only setup/clean-up assistance from one helper? No. WHEEL 150 FEET - STEP 3: Does the patient need only verbal/nonverbal cueing or touching/steadying/contact guard assistance fro m one helper? No. WHEEL 150 FEET - STEP 4: Does the patient need physical assistance - for example lifting or trunk support from one helper - wi th the helper providing less than half of the effort? No. WHEEL 150 FEET - STEP 5: Does the patient need physical assistance - for example lifting or trunk support from one helper - wi th the helper providing more than half of the effort? Yes. 1. [id number] ADMISSION PERFORMANCE: Substantial/maximal assistance CODE: 02 INDICATE THE TYPE OF WHEELCHAIR/SCOOTER USED: SS1. INDICATE THE TYPE OF WHEELCHAIR/SCOOTER USED.: Manual CODE: 1 BLADDER AND BOWEL: CODE: EXPR CODE: EXPR SIGNATURE PANEL: The following modified sections: 1. [id number] Admission Performance, 1. [id number] Admission Performance, 1. [id number] Admission Performance, 1. [id number] Admission Performance, 1. [id number] Admission Performance, 1. [id number] Admission Performance, Q1. Does the patient use a wheelchair/scooter?, 1. [id number] Admissi on Performance, RR1. Indicate the type of wheelchair/scooter used., 1. [id number] Admission Performance, Code, SS1. Indicate the type of wheelchair/scooter used. were [electronically] signed by Sena godinez PTA on TueMay 10 2019 15:46:12 GMT-0600 (Central Standard Time)
[2019-05-10] MEDS: ENOXAPARIN 40 MG/0.4 ML SQ SCH (17:19)
--- NOTE | 2019-05-10 17:39 | R.PN ---
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 Pt denied any Shortness of Breath. Ambulated 250' with contact guard assistance using a rolling walker. WBC 5.5, Hgb 12.2, prealbumin 19.2, UA shows trace esterase and bacteria 20-50. VITAL SIGNS Temperature: 98.2 F SBP/DBP: 141/63 Pulse: 53 Resp: 16 MEDICATION ALLERGIES: No Known Drug Allergies (NKDA) ENVIRONMENTAL ALLERGIES: None Known - Substance Allergies None Known - Other Allergies None Known CONSULT: Perform Neuro consult NURSING: - Shower allowing shower - Bladder care per protocol - Skin care per protocol PRECAUTIONS: - Weight Bearing Precaution WBAT right LE ACTIVITIES OOB only with supervision THERAPIES: - Occupational Therapy Cognitive Retraining. Visual Perceptual Training. - Dietary and Nutrition Adequate Nutrition. Nutritional Education. Nutritional Supplements. - Speech Therapy Cognitive Training. Dysphagia Therapy. Expressive Language Skills. Memory Strategies. Receptive Langu age Skills. Speech Intelligibility Training. PHYSICAL EXAM - Gen Alert and awake Lying in bed No apparent distress Oriented to: person, time, and place - Skin No skin breakdown. No abnormalities - Eyes No abnormalities - ENMT No abnormalities - Neck No abnormalities - CVS RRR - Chest No abnormalities - Resp Clear to auscultation - Abd Soft - GI Non distended No abnormalities - No abnormalities - Ext No significant edema - MSK 4+/5 weakness in right upper and lower extremity - Neuro 4/5 strength right upper and lower extremities. - Psych No abnormalities ASSESSMENT: Pt. is a 83 yo Right-handed white male.On 04/25/2019 Pt. presented to [facility] with sudden onset of right-side weakness.On 04/25/2019 he was [facility] with diagnosis Nonhemorrhagic Acute Infarction in the Posterior Limb Internal Capsule on the left .His impairment category is Stroke 01 - Right Body (Left Brain) (01.2).Pre-morbidly, Pt. was in dependent/mod-I in Locomotion, Safety Awareness, Balance, Social Cognition, Transfers Control, Sphinc ter Control, Communication, Endurance, and Self-Care; and he had good Locomotion, Safety Awareness, B alance, Social Cognition, Transfers Control, Sphincter Control, Self-Care, Communication, and Enduran ce.Currently, he has deficits of Locomotion, Balance, Safety Awareness, Transfers Control, Social Cog nition, Sphincter Control, Self-Care, Communication, and Endurance.Pt. is now referred to [facility] for acute in-patient rehabilitation in order to maximize patient's functional independence in activities of daily living, strength, ROM, and mobility.- Rehab Goal Patient has realistic goal of being discharged at assistance level 6-Marlon to reside at Home with Att endant. MDM/PLAN: - Physical Therapy Gait dysfunction - to improve, our physical therapists will perform initial evaluation of pt's statu s upon admission and devise an individualized program for Gait Training, and Wheel Chair mobility Inability to transfer - to improve, our physical therapists will perform initial evaluation of pt's status upon admission and devise an individualized program for Bed mobility Need for home safety evaluation - to improve, our physical therapists will perform initial evaluatio n of pt's status upon admission and devise an individualized program for Home Evaluation Need in caregiver upon discharge - to improve, our physical therapists will perform initial evaluati on of pt's status upon admission and devise an individualized program for Caregiver Training New precaution - to improve, our physical therapists will perform initial evaluation of pt's status upon admission and devise an individualized program for Patient precaution education Edema - to improve, our physical therapists will perform initial evaluation of pt's status upon admi ssion and devise an individualized program for Elevation Training, and Lymphedema Therapy Poor balance - to improve, our physical therapists will perform initial evaluation of pt's status up on admission and devise an individualized program for Balance Training Poor endurance - to improve, our physical therapists will perform initial evaluation of pt's status upon admission and devise an individualized program for Endurance Training Weakness - to improve, our physical therapists will perform initial evaluation of pt's status upon a dmission and devise an individualized program for Aquatic Therapy, Neuromuscular Reeducation, and Str engthening Achieving independence - to improve, our physical therapists will perform initial evaluation of pt's status upon admission and devise an individualized program for Community Reintegration Activities - Occupational Therapy ADL deficits - to improve, our occupation therapists will perform initial evaluation of pt's status upon admission and devise an individualized program for Bathing, Bed mobility, Community Reintegratio n, Cooking, Dressing, Eating, Fine Motor Skills, Grooming, Homemaking, Kitchen Mobility, Laundry, Pat ient Education, Safety Awareness, Splinting - Positioning, Transfers(Toilet, Tub, Shower), and Wheel Chair Management Cognitive deficits - to improve, our occupation therapists will perform initial evaluation of pt's s tatus upon admission and devise an individualized program for Cognition - orientation Need for care team assistant - to improve, our occupation therapists will perform initial evaluation of pt's status upon admission and devise an individualized program for Caregiver Training Weakness - to improve, our occupation therapists will perform initial evaluation of pt's status upon admission and devise an individualized program for Aquatic Therapy, Balance, Endurance, UE ROM, and UE strengthening - Other See attached MAR (Medication Administration Record) - Diet Type Continue Regular - Diet - Liquid Texture Continue Thin - Tube Feed Continue N/A - Bladder care per protocol - Weight Bearing Precaution WBAT right LE - Skin care per protocol - N/A Perform Neuro consult - Diet - Solid Texture Continue Regular Continue Mechanical Soft - Shower allowing shower for Dementia, TBI, Stroke, or others FUNCTIONAL STATUS: UPDATED AT WEEKLY TEAM CONFERENCE - Bladder Same accident frequency: 7-Ind - No accidents in the past 7 days - Bowel Same accident frequency: 7-Ind - No accidents in the past 7 days - Walking Same score based on distance walked: 0(N/A) Same score based on distance walked: 1(<=50ft) - Wheelchair Same score based on distance traveled: 0(N/A) FUNCTIONAL STATUS: - Self-Care A. Eating sup B. Grooming sup C. Bathing modA D. Dressing - Upper modA E. Dressing - Lower modA F. Toileting modA - Sphincter Control G. Bladder control sup H. Bowel control sup - Transfers Control I. Bed/Chair/Wheelchair Reynaldo J. Toilet Reynaldo K. Tub/Shower Reynaldo - Locomotion L. Walk/Wheelchair (B) Reynaldo M. Stairs modA - Communication N. Comprehension (B) sup O. Expression (B) Reynaldo - Social Cognition P. Social Interaction sup Q. Problem Solving sup R. Memory sup - Endurance Fair - Balance Fair - Safety Awareness Fair QI SCORES: - Self-Care A. Eating 05-Setup or clean-up assistance B. Oral hygiene 05-Setup or clean-up assistance C. Toileting hygiene 03-Partial/moderate assistance E. Shower/bathe self 03-Partial/moderate assistance F. Upper body dressing 03-Partial/moderate assistance G. Lower body dressing 03-Partial/moderate assistance H. Putting on/taking off footwear 02-Substantial/maximal assistance - Mobility A. Roll left and right 03-Partial/moderate assistance B. Sit to lying 03-Partial/moderate assistance C. Lying to sitting on side of bed 03-Partial/moderate assistance D. Sit to stand 03-Partial/moderate assistance E. Chair/[id number] transfer 03-Partial/moderate assistance F. Toilet transfer 03-Partial/moderate assistance G. Car transfer 10-Not attempted due to environmental limitations I. Walk 10 feet 02-Substantial/maximal assistance J. Walk 50 feet with two turns 88-Not attempted due to medical condition or safety concerns K. Walk 150 feet 88-Not attempted due to medical condition or safety concerns L. Walking 10 feet on uneven surfaces 88-Not attempted due to medical condition or safety concerns M. 1 step (curb) 88-Not attempted due to medical condition or safety concerns N. 4 steps 88-Not attempted due to medical condition or safety concerns O. 12 steps 88-Not attempted due to medical condition or safety concerns P. Picking up object 88-Not attempted due to medical condition or safety concerns R. Wheel 50 feet with two turns 88-Not attempted due to medical condition or safety concerns S. Wheel 150 feet 88-Not attempted due to medical condition or safety concerns - Bladder and Bowel Bladder continence 0-Always continent Bowel continence 0-Always continent - Endurance Fair - Balance Fair - Safety Awareness Fair CURRENT FUNC. 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
[2019-05-10] MEDS: ATORVASTATIN 20 MG TAB PO SCH (19:07)
[2019-05-10] MEDS: DOCUSATE NA/SENNA CONC 1 TAB PO SCH (19:07)
[2019-05-11] MEDS: PROMOD 30 ML DOSE PO SCH ×2 (08:00→20:41)
[2019-05-11] MEDS: LOSARTAN POTASSIUM 50 MG TABLET PO SCH ×2 (08:27→20:41)
[2019-05-11] MEDS: TURMERIC ROOT EXTRACT PO SCH (08:27)
[2019-05-11] MEDS: ASPIRIN 81 MG CHEWABLE TABLET PO SCH (08:27)
[2019-05-11] MEDS: FOLIC ACID 1 MG TABLET PO SCH (08:27)
[2019-05-11] MEDS: CLOPIDOGREL 75 MG TABLET PO SCH (08:27)
[2019-05-11] MEDS: CARBIDOPA/LEVODOPA 25/100 TAB PO SCH ×4 (08:27→20:41)
[2019-05-11] MEDS: DULOXETINE 20 MG CAP PO SCH (08:28)
[2019-05-11] MEDS: MEGESTROL 40 MG TAB PO SCH (08:28)
[2019-05-11] MEDS: ENSURE HIGH PROTEIN 237 ML CAN PO SCH ×2 (08:28→20:42)
--- NOTE | 2019-05-11 09:54 | P.RH.PN ---
Estimated Length of Stay: 19 Expected Discharge Date: 05/19/19 Discharge Disposition Plan: Home Family Support: Yes Fdc Goal: Mobility, Transfers, Self Care Vital Signs: Last Vital Signs Temp 98.8 F 05/11/19 07:46 Pulse 56 05/11/19 07:46 Resp 16 05/11/19 07:46 BP 113/66 05/11/19 07:46 Pulse Ox 96 05/11/19 07:46 Laboratory: Laboratory Last Values WBC 5.5 K/uL (4.3-10.9) 05/10/19 06:10 RBC 3.77 M/uL (4.33-5.43) L 05/10/19 06:10 Hgb 12.2 g/dL (13.6-17.9) L 05/10/19 06:10 Hct 35.9 % (39.6-49.0) L 05/10/19 06:10 MCV 95.2 fL (80-100) 05/10/19 06:10 MCH 32.5 pg (27.0-35.0) 05/10/19 06:10 MCHC 34.1 g/dL (32.0-36.0) 05/10/19 06:10 RDW 14.4 % (12.1-15.2) 05/10/19 06:10 Plt Count 255 K/uL (152-406) 05/10/19 06:10 MPV 7.9 fL (7.6-11.3) 05/10/19 06:10 Neutrophils % 60.2 % (41.7-73.7) 05/10/19 06:10 Lymphocytes % 29.2 % (15.3-44.8) 05/10/19 06:10 Monocytes % 8.5 % (3.3-12.3) 05/10/19 06:10 Eosinophils % 1.3 % (0-4.4) 05/10/19 06:10 Basophils % 0.8 % (0-1.3) 05/10/19 06:10 Absolute Neutrophils 3.3 K/uL (1.8-8.0) 05/10/19 06:10 Absolute Lymphocytes 1.6 K/uL (0.7-4.9) 05/10/19 06:10 Absolute Monocytes 0.5 K/uL (0.1-1.3) 05/10/19 06:10 Absolute Eosinophils 0.1 K/uL (0-0.5) 05/10/19 06:10 Absolute Basophils 0.0 K/uL (0-0.5) 05/10/19 06:10 Sodium 134 mmol/L (136-145) L 05/10/19 06:10 Potassium 4.0 mmol/L (3.5-5.1) 05/10/19 06:10 Chloride 103 mmol/L (98-107) 05/10/19 06:10 Carbon Dioxide 23 mmol/L (21-32) 05/10/19 06:10 BUN 25 mg/dL (7-18) H 05/10/19 06:10 Creatinine 1.00 mg/dL (0.55-1.3) 05/10/19 06:10 Estimated GFR 71 mL/min (=/>90) L 05/10/19 06:10 Glucose 81 mg/dL (74-106) 05/10/19 06:10 Calcium 8.5 mg/dL (8.5-10.1) 05/10/19 06:10 Magnesium 2.5 mg/dL (1.8-2.4) H 05/10/19 06:10 Albumin 3.2 g/dL (3.4-5.0) L 05/10/19 06:10 Prealbumin 19.2 mg/dL (20-40) L 05/10/19 06:10 Urine Color Yellow 05/03/19 09:00 Urine Appearance Clear 05/03/19 09:00 Urine pH 6.0 (5.0-7.0) 05/03/19 09:00 Ur Specific [place] 1.025 (1.005-1.030) 05/03/19 09:00 Urine Ketones Negative (NEG) 05/03/19 09:00 Urine Blood Negative (NEG) 05/03/19 09:00 Urine Nitrite Negative (NEG) 05/03/19 09:00 Urine Bilirubin Negative (NEG) 05/03/19 09:00 Urine Urobilinogen 1.0 mg/dL (0.2-1.0) 05/03/19 09:00 Ur Leukocyte Esterase Trace (NEG) H 05/03/19 09:00 Urine RBC <5 /HPF (NONE SEEN) 05/03/19 09:00 Urine WBC 5-10 /HPF (<5) H 05/03/19 09:00 Ur Squamous Epith Cells 5-10 /HPF (NONE SEEN) H 05/03/19 09:00 Urine Bacteria 20-50 /HPF (NONE SEEN) H 05/03/19 09:00 Hyaline Casts 0-5 /LPF (NONE SEEN) 05/03/19 09:00 Urine Culture Reflexed Reflexed 05/03/19 09:00 Urine Glucose Negative (NEG) 05/03/19 09:00 Urine Total Protein Negative (NEG) 05/03/19 09:00 Weight: 143 lb 1.6 oz Wound Present: No Closed Surgical Incision Present: No Negative Pressure Wound Therapy Present: No Physician Update: Labs reviewed and are stable. He is doing fairly well with ADLs but is somewhat limited by the stiffness of Parkinson's disease and mild cognitive impairment. He walks 90' with standby assistance. Medical Issues: Patient is always continent with bladder and bowel. Pain Issues: Patient is taking Tylenol 500mg Q6H PO PRN and Tramadol 50mg Q8H PO PRN for pain. Functional Improvement: pt is responding well to gait training. pt has reduced shuffling gait pattern when slowing down gait and concentrating on 1 step at a time. We will continue to reinforce this proper pattern and gradually increase speed and look to perform continuous reciprocal gait. Speech Therapy Update: Patient has been working hard on increasing his volume and vocal strength during vocal warm ups, speech tasks, and in conversation. Patient requires consistent cues to carry over strategies into natural, spontaneous speech or unstructured conversation. Patient requires a lot of reminders due to some cognitive impairments which appear to be mild-moderate for his age and condition. Patient is tolerating current diet level: mechanical soft solids, chopped, thin liquids (no straws), and whole medications with pudding/puree. Patient would benefit from at least 2 more weeks of intensive therapy. Summary: Patient's care plan and skilled nursing goals have been reviewed and revised as necessary. Please see the Rehabilitation Signature page for all necessary signatures.
[2019-05-11] MEDS: MAGNESIUM HYDROXIDE 8% 30 ML PO PRN (14:27)
--- NOTE | 2019-05-11 15:18 | FAST ---
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 River Pichardo M.D. ADMISSION DIAGNOSIS: - Stroke 01 - Right Body (Left Brain) (01.2) Nonhemorrhagic Acute Infarction in the Posterior Limb Internal Capsule on the left . - Neurologic Conditions 03 - Parkinsonism (03.2) Parkinsons Disease. EATING: EATING - STEP 1: Does the patient complete the activity by him/herself with no assistance (physical, verbal/nonverbal cueing, setup/clean-up)? No. EATING - STEP 2: Does the patient need only setup/clean-up assistance from one helper? No. EATING - STEP 3: Does the patient need only verbal/nonverbal cueing or touching/steadying/contact guard assistance fro m one helper? Yes. 1. [id number] ADMISSION PERFORMANCE: Supervision or touching assistance CODE: 04 ORAL HYGIENE: Not assessed/no information ORAL HYGIENE - STEP 1: Does the patient complete the activity by him/herself with no assistance (physical, verbal/nonverbal cueing, setup/clean-up)? No. ORAL HYGIENE - STEP 2: Does the patient need only setup/clean-up assistance from one helper? No. ORAL HYGIENE - STEP 3: Does the patient need only verbal/nonverbal cueing or touching/steadying/contact guard assistance fro m one helper? No. ORAL HYGIENE - STEP 4: Does the patient need physical assistance - for example lifting or trunk support from one helper - wi th the helper providing less than half of the effort? Yes. 1. [id number] ADMISSION PERFORMANCE: Partial/moderate assistance CODE: 03 TOILETING HYGIENE: TOILETING HYGIENE - STEP 1: Does the patient complete the activity by him/herself with no assistance (physical, verbal/nonverbal cueing, setup/clean-up)? No. TOILETING HYGIENE - STEP 2: Does the patient need only setup/clean-up assistance from one helper? Yes. 1. [id number] ADMISSION PERFORMANCE: Setup or clean-up assistance CODE: 05 BATHING: Not assessed/no information CODE: - DRESSING - UPPER BODY: DRESSING - UPPER BODY - STEP 1: Does the patient complete the activity by him/herself with no assistance (physical, verbal/nonverbal cueing, setup/clean-up)? No. DRESSING - UPPER BODY - STEP 2: Does the patient need only setup/clean-up assistance from one helper? No. DRESSING - UPPER BODY - STEP 3: Does the patient need only verbal/nonverbal cueing or touching/steadying/contact guard assistance fro m one helper? Yes. 1. [id number] ADMISSION PERFORMANCE: Supervision or touching assistance CODE: 04 DRESSING - LOWER BODY: DRESSING - LOWER BODY - STEP 1: Does the patient complete the activity by him/herself with no assistance (physical, verbal/nonverbal cueing, setup/clean-up)? No. DRESSING - LOWER BODY - STEP 2: Does the patient need only setup/clean-up assistance from one helper? No. DRESSING - LOWER BODY - STEP 3: Does the patient need only verbal/nonverbal cueing or touching/steadying/contact guard assistance fro m one helper? Yes. 1. [id number] ADMISSION PERFORMANCE: Supervision or touching assistance CODE: 04 PUTTING ON/TAKING OFF FOOTWEAR: FOOTWEAR - STEP 1: Does the patient complete the activity by him/herself with no assistance (physical, verbal/nonverbal cueing, setup/clean-up)? No. FOOTWEAR - STEP 2: Does the patient need only setup/clean-up assistance from one helper? No. FOOTWEAR - STEP 3: Does the patient need only verbal/nonverbal cueing or touching/steadying/contact guard assistance fro m one helper? Yes. 1. [id number] ADMISSION PERFORMANCE: Supervision or touching assistance CODE: 04 ROLL LEFT AND RIGHT: ROLL LEFT AND RIGHT - STEP 1: Does the patient complete the activity by him/herself with no assistance (physical, verbal/nonverbal cueing, setup/clean-up)? No. ROLL LEFT AND RIGHT - STEP 2: Does the patient need only setup/clean-up assistance from one helper? No. ROLL LEFT AND RIGHT - STEP 3: Does the patient need only verbal/nonverbal cueing or touching/steadying/contact guard assistance fro m one helper? Yes. 1. [id number] ADMISSION PERFORMANCE: Supervision or touching assistance CODE: 04 SIT TO LYING: SIT TO LYING - STEP 1: Does the patient complete the activity by him/herself with no assistance (physical, verbal/nonverbal cueing, setup/clean-up)? No. SIT TO LYING - STEP 2: Does the patient need only setup/clean-up assistance from one helper? No. SIT TO LYING - STEP 3: Does the patient need only verbal/nonverbal cueing or touching/steadying/contact guard assistance fro m one helper? No. SIT TO LYING - STEP 4: Does the patient need physical assistance - for example lifting or trunk support from one helper - wi th the helper providing less than half of the effort? Yes. 1. [id number] ADMISSION PERFORMANCE: Partial/moderate assistance CODE: 03 LYING TO SITTING: LYING TO SITTING ON SIDE OF BED - STEP 1: Does the patient complete the activity by him/herself with no assistance (physical, verbal/nonverbal cueing, setup/clean-up)? No. LYING TO SITTING ON SIDE OF BED - STEP 2: Does the patient need only setup/clean-up assistance from one helper? No. LYING TO SITTING ON SIDE OF BED - STEP 3: Does the patient need only verbal/nonverbal cueing or touching/steadying/contact guard assistance fro m one helper? Yes. 1. [id number] ADMISSION PERFORMANCE: Supervision or touching assistance CODE: 04 SIT TO STAND: SIT TO STAND - STEP 1: Does the patient complete the activity by him/herself with no assistance (physical, verbal/nonverbal cueing, setup/clean-up)? No. SIT TO STAND - STEP 2: Does the patient need only setup/clean-up assistance from one helper? No. SIT TO STAND - STEP 3: Does the patient need only verbal/nonverbal cueing or touching/steadying/contact guard assistance fro m one helper? Yes. 1. [id number] ADMISSION PERFORMANCE: Supervision or touching assistance CODE: 04 TRANSFERS: BED, CHAIR: CHAIR/[id number] TRANSFER - STEP 1: Does the patient complete the activity by him/herself with no assistance (physical, verbal/nonverbal cueing, setup/clean-up)? No. CHAIR/[id number] TRANSFER - STEP 2: Does the patient need only setup/clean-up assistance from one helper? No. CHAIR/[id number] TRANSFER - STEP 3: Does the patient need only verbal/nonverbal cueing or touching/steadying/contact guard assistance fro m one helper? No. CHAIR/[id number] TRANSFER - STEP 4: Does the patient need physical assistance - for example lifting or trunk support from one helper - wi th the helper providing less than half of the effort? Yes. 1. [id number] ADMISSION PERFORMANCE: Partial/moderate assistance CODE: 03 TRANSFER TOILET: TOILET TRANSFER - STEP 1: Does the patient complete the activity by him/herself with no assistance (physical, verbal/nonverbal cueing, setup/clean-up)? No. TOILET TRANSFER - STEP 2: Does the patient need only setup/clean-up assistance from one helper? Yes. 1. [id number] ADMISSION PERFORMANCE: Setup or clean-up assistance CODE: 05 TRANSFERS: CAR: Not assessed/no information CODE: - WALK 10 FEET: Not assessed/no information CODE: - 1 STEP (CURB): Not assessed/no information CODE: - PICKING UP OBJECT: Not assessed/no information CODE: - DOES THE PATIENT USE A WHEELCHAIR/SCOOTER? Q1. DOES THE PATIENT USE A WHEELCHAIR/SCOOTER?: No CODE: 0 INDICATE THE TYPE OF WHEELCHAIR/SCOOTER USED: CODE: EXPR INDICATE THE TYPE OF WHEELCHAIR/SCOOTER USED: CODE: EXPR BLADDER AND BOWEL: H350. BLADDER CONTINENCE (3-DAY ASSESSMENT PERIOD): Always continent (no documented incontinence) CODE: 0 H400. BOWEL CONTINENCE (3-DAY ASSESSMENT PERIOD): Always continent CODE: 0 SIGNATURE PANEL: The following modified sections: 1. [id number] Admission Performance, 1. [id number] Admission Performance, 1. AV3578E Admission Performance, 1. [id number] Admission Performance, 1. ME0473a Admission Performance, 1. MG0172z Admission Performance, 1. VS4694l Admission Performance, 1. DG1251J Admission Performance , 1. NB5890C Admission Performance, 1. PR1298U Admission Performance, 1. AV0446O Admission Performanc e, 1. HR1725F Admission Performance, 1. VM4216O Admission Performance, 1. BS1569W Admission Performan ce, Q1. Does the patient use a wheelchair/scooter?, H350. Bladder Continence (3-day assessment period ), H400. Bowel Continence (3-day assessment period) were [electronically] signed by Stuart Romano on TueMay 11 2019 15:16:59 GMT-0600 (Central Standard Time)
--- NOTE | 2019-05-11 16:43 | FAST ---
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 River Pichardo M.D. ADMISSION DIAGNOSIS: - Stroke 01 - Right Body (Left Brain) (01.2) Nonhemorrhagic Acute Infarction in the Posterior Limb Internal Capsule on the left . - Neurologic Conditions 03 - Parkinsonism (03.2) Parkinsons Disease. EATING: Not assessed/no information CODE: - ORAL HYGIENE: Not assessed/no information CODE: - TOILETING HYGIENE: Not assessed/no information CODE: - BATHING: SHOWER/BATHE SELF - STEP 1: Does the patient complete the activity by him/herself with no assistance (physical, verbal/nonverbal cueing, setup/clean-up)? No. SHOWER/BATHE SELF - STEP 2: Does the patient need only setup/clean-up assistance from one helper? No. SHOWER/BATHE SELF - STEP 3: Does the patient need only verbal/nonverbal cueing or touching/steadying/contact guard assistance fro m one helper? Yes. 1. [id number] ADMISSION PERFORMANCE: Supervision or touching assistance CODE: 04 DRESSING - UPPER BODY: DRESSING - UPPER BODY - STEP 1: Does the patient complete the activity by him/herself with no assistance (physical, verbal/nonverbal cueing, setup/clean-up)? No. DRESSING - UPPER BODY - STEP 2: Does the patient need only setup/clean-up assistance from one helper? No. DRESSING - UPPER BODY - STEP 3: Does the patient need only verbal/nonverbal cueing or touching/steadying/contact guard assistance fro m one helper? Yes. 1. [id number] ADMISSION PERFORMANCE: Supervision or touching assistance CODE: 04 DRESSING - LOWER BODY: DRESSING - LOWER BODY - STEP 1: Does the patient complete the activity by him/herself with no assistance (physical, verbal/nonverbal cueing, setup/clean-up)? No. DRESSING - LOWER BODY - STEP 2: Does the patient need only setup/clean-up assistance from one helper? No. DRESSING - LOWER BODY - STEP 3: Does the patient need only verbal/nonverbal cueing or touching/steadying/contact guard assistance fro m one helper? Yes. 1. [id number] ADMISSION PERFORMANCE: Supervision or touching assistance CODE: 04 PUTTING ON/TAKING OFF FOOTWEAR: FOOTWEAR - STEP 1: Does the patient complete the activity by him/herself with no assistance (physical, verbal/nonverbal cueing, setup/clean-up)? No. FOOTWEAR - STEP 2: Does the patient need only setup/clean-up assistance from one helper? No. FOOTWEAR - STEP 3: Does the patient need only verbal/nonverbal cueing or touching/steadying/contact guard assistance fro m one helper? No. FOOTWEAR - STEP 4: Does the patient need physical assistance - for example lifting or trunk support from one helper - wi th the helper providing less than half of the effort? No. FOOTWEAR - STEP 5: Does the patient need physical assistance - for example lifting or trunk support from one helper - wi th the helper providing more than half of the effort? Yes. 1. [id number] ADMISSION PERFORMANCE: Substantial/maximal assistance CODE: 02 DOES THE PATIENT USE A WHEELCHAIR/SCOOTER? CODE: EXPR INDICATE THE TYPE OF WHEELCHAIR/SCOOTER USED: CODE: EXPR INDICATE THE TYPE OF WHEELCHAIR/SCOOTER USED: CODE: EXPR BLADDER AND BOWEL: CODE: EXPR CODE: EXPR SIGNATURE PANEL: The following modified sections: 1. [id number] Admission Performance, 1. [id number] Admission Performance, 1. DR1674f Admission Performance, 1. PL2269n Admission Performance were [electronically] signed by Aga Grimaldo OT on TueMay 11 2019 16:42:45 GMT-0600 (Central Standard Time)
[2019-05-11] MEDS: ENOXAPARIN 40 MG/0.4 ML SQ SCH (17:19)
[2019-05-11] MEDS: DOCUSATE NA/SENNA CONC 1 TAB PO SCH (20:41)
[2019-05-11] MEDS: ATORVASTATIN 20 MG TAB PO SCH (20:41)
--- NOTE | 2019-05-12 02:35 | FAST ---
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 River Pichardo M.D. ADMISSION DIAGNOSIS: - Stroke 01 - Right Body (Left Brain) (01.2) Nonhemorrhagic Acute Infarction in the Posterior Limb Internal Capsule on the left . - Neurologic Conditions 03 - Parkinsonism (03.2) Parkinsons Disease. EATING: Not assessed/no information CODE: - ORAL HYGIENE: Not assessed/no information CODE: - TOILETING HYGIENE: TOILETING HYGIENE - STEP 1: Does the patient complete the activity by him/herself with no assistance (physical, verbal/nonverbal cueing, setup/clean-up)? No. TOILETING HYGIENE - STEP 2: Does the patient need only setup/clean-up assistance from one helper? No. TOILETING HYGIENE - STEP 3: Does the patient need only verbal/nonverbal cueing or touching/steadying/contact guard assistance fro m one helper? No. TOILETING HYGIENE - STEP 4: Does the patient need physical assistance - for example lifting or trunk support from one helper - wi th the helper providing less than half of the effort? Yes. 1. [id number] ADMISSION PERFORMANCE: Partial/moderate assistance CODE: 03 BATHING: Not assessed/no information CODE: - DRESSING - UPPER BODY: Not assessed/no information CODE: - DRESSING - LOWER BODY: Not assessed/no information CODE: - PUTTING ON/TAKING OFF FOOTWEAR: Not assessed/no information CODE: - ROLL LEFT AND RIGHT: ROLL LEFT AND RIGHT - STEP 1: Does the patient complete the activity by him/herself with no assistance (physical, verbal/nonverbal cueing, setup/clean-up)? No. ROLL LEFT AND RIGHT - STEP 2: Does the patient need only setup/clean-up assistance from one helper? No. ROLL LEFT AND RIGHT - STEP 3: Does the patient need only verbal/nonverbal cueing or touching/steadying/contact guard assistance fro m one helper? No. ROLL LEFT AND RIGHT - STEP 4: Does the patient need physical assistance - for example lifting or trunk support from one helper - wi th the helper providing less than half of the effort? Yes. 1. [id number] ADMISSION PERFORMANCE: Partial/moderate assistance CODE: 03 SIT TO LYING: Not assessed/no information CODE: - LYING TO SITTING: Not assessed/no information CODE: - SIT TO STAND: Not assessed/no information CODE: - TRANSFERS: BED, CHAIR: Not assessed/no information CODE: - TRANSFER TOILET: Not assessed/no information CODE: - TRANSFERS: CAR: Not assessed/no information CODE: - WALK 10 FEET: Not assessed/no information CODE: - 1 STEP (CURB): Not assessed/no information CODE: - PICKING UP OBJECT: Not assessed/no information CODE: - DOES THE PATIENT USE A WHEELCHAIR/SCOOTER? CODE: EXPR WHEEL 50 FEET WITH TWO TURNS: Not assessed/no information CODE: - INDICATE THE TYPE OF WHEELCHAIR/SCOOTER USED: CODE: EXPR WHEEL 150 FEET: Not assessed/no information CODE: - INDICATE THE TYPE OF WHEELCHAIR/SCOOTER USED: CODE: EXPR BLADDER AND BOWEL: H350. BLADDER CONTINENCE (3-DAY ASSESSMENT PERIOD): Always incontinent CODE: 4 H400. BOWEL CONTINENCE (3-DAY ASSESSMENT PERIOD): Always continent CODE: 0
[2019-05-12] MEDS: CLOPIDOGREL 75 MG TABLET PO SCH (08:57)
[2019-05-12] MEDS: LOSARTAN POTASSIUM 50 MG TABLET PO SCH ×2 (08:57→20:00)
[2019-05-12] MEDS: CARBIDOPA/LEVODOPA 25/100 TAB PO SCH ×4 (08:57→20:38)
[2019-05-12] MEDS: FOLIC ACID 1 MG TABLET PO SCH (08:57)
[2019-05-12] MEDS: MEGESTROL 40 MG TAB PO SCH (08:57)
[2019-05-12] MEDS: ASPIRIN 81 MG CHEWABLE TABLET PO SCH (08:58)
[2019-05-12] MEDS: PROMOD 30 ML DOSE PO SCH ×2 (08:58→20:38)
[2019-05-12] MEDS: ENSURE HIGH PROTEIN 237 ML CAN PO SCH ×2 (08:58→20:38)
[2019-05-12] MEDS: DULOXETINE 20 MG CAP PO SCH (08:58)
[2019-05-12] MEDS: TURMERIC ROOT EXTRACT PO SCH (08:58)
[2019-05-12] MEDS: MAGNESIUM HYDROXIDE 8% 30 ML PO PRN (11:24)
[2019-05-12] MEDS: ONDANSETRON 4 MG (ODT) TAB PO PRN (12:23)
--- NOTE | 2019-05-12 15:39 | FAST ---
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 River Pichardo M.D. ADMISSION DIAGNOSIS: - Stroke 01 - Right Body (Left Brain) (01.2) Nonhemorrhagic Acute Infarction in the Posterior Limb Internal Capsule on the left . - Neurologic Conditions 03 - Parkinsonism (03.2) Parkinsons Disease. EATING: Not assessed/no information CODE: - ORAL HYGIENE: Not assessed/no information CODE: - TOILETING HYGIENE: Not assessed/no information CODE: - BATHING: Not assessed/no information CODE: - DRESSING - UPPER BODY: DRESSING - UPPER BODY - STEP 1: Does the patient complete the activity by him/herself with no assistance (physical, verbal/nonverbal cueing, setup/clean-up)? No. DRESSING - UPPER BODY - STEP 2: Does the patient need only setup/clean-up assistance from one helper? No. DRESSING - UPPER BODY - STEP 3: Does the patient need only verbal/nonverbal cueing or touching/steadying/contact guard assistance fro m one helper? No. DRESSING - UPPER BODY - STEP 4: Does the patient need physical assistance - for example lifting or trunk support from one helper - wi th the helper providing less than half of the effort? Yes. 1. [id number] ADMISSION PERFORMANCE: Partial/moderate assistance CODE: 03 DRESSING - LOWER BODY: DRESSING - LOWER BODY - STEP 1: Does the patient complete the activity by him/herself with no assistance (physical, verbal/nonverbal cueing, setup/clean-up)? No. DRESSING - LOWER BODY - STEP 2: Does the patient need only setup/clean-up assistance from one helper? No. DRESSING - LOWER BODY - STEP 3: Does the patient need only verbal/nonverbal cueing or touching/steadying/contact guard assistance fro m one helper? No. DRESSING - LOWER BODY - STEP 4: Does the patient need physical assistance - for example lifting or trunk support from one helper - wi th the helper providing less than half of the effort? Yes. 1. [id number] ADMISSION PERFORMANCE: Partial/moderate assistance CODE: 03 PUTTING ON/TAKING OFF FOOTWEAR: FOOTWEAR - STEP 1: Does the patient complete the activity by him/herself with no assistance (physical, verbal/nonverbal cueing, setup/clean-up)? No. FOOTWEAR - STEP 2: Does the patient need only setup/clean-up assistance from one helper? No. FOOTWEAR - STEP 3: Does the patient need only verbal/nonverbal cueing or touching/steadying/contact guard assistance fro m one helper? No. FOOTWEAR - STEP 4: Does the patient need physical assistance - for example lifting or trunk support from one helper - wi th the helper providing less than half of the effort? No. FOOTWEAR - STEP 5: Does the patient need physical assistance - for example lifting or trunk support from one helper - wi th the helper providing more than half of the effort? Yes. 1. [id number] ADMISSION PERFORMANCE: Substantial/maximal assistance CODE: 02 DOES THE PATIENT USE A WHEELCHAIR/SCOOTER? CODE: EXPR INDICATE THE TYPE OF WHEELCHAIR/SCOOTER USED: CODE: EXPR INDICATE THE TYPE OF WHEELCHAIR/SCOOTER USED: CODE: EXPR BLADDER AND BOWEL: CODE: EXPR CODE: EXPR SIGNATURE PANEL: The following modified sections: 1. [id number] Admission Performance, 1. EV1935i Admission Performance, 1. [id number] Admission Performance, 1. [id number] Admission Performance were [electronically] signed by Usama Rivera OT on Sat May 12 2019 15:39:13 GMT-0600 (Central Standard Time)
[2019-05-12] MEDS: ENOXAPARIN 40 MG/0.4 ML SQ SCH (16:29)
[2019-05-12] MEDS: DOCUSATE NA/SENNA CONC 1 TAB PO SCH (20:36)
[2019-05-12] MEDS: ATORVASTATIN 20 MG TAB PO SCH (20:38)
[2019-05-13] MEDS: PROMOD 30 ML DOSE PO SCH ×2 (08:29→20:26)
[2019-05-13] MEDS: LOSARTAN POTASSIUM 50 MG TABLET PO SCH ×2 (08:30→20:00)
[2019-05-13] MEDS: CARBIDOPA/LEVODOPA 25/100 TAB PO SCH ×4 (08:30→20:27)
[2019-05-13] MEDS: ASPIRIN 81 MG CHEWABLE TABLET PO SCH (08:30)
[2019-05-13] MEDS: MEGESTROL 40 MG TAB PO SCH (08:30)
[2019-05-13] MEDS: FOLIC ACID 1 MG TABLET PO SCH (08:30)
[2019-05-13] MEDS: TURMERIC ROOT EXTRACT PO SCH (08:30)
[2019-05-13] MEDS: CLOPIDOGREL 75 MG TABLET PO SCH (08:30)
[2019-05-13] MEDS: DULOXETINE 20 MG CAP PO SCH (08:30)
[2019-05-13] MEDS: ENSURE HIGH PROTEIN 237 ML CAN PO SCH ×2 (08:31→20:26)
[2019-05-13] MEDS ORDERED: ZOLPIDEM TARTRATE 5 MG TABLET PO PRN (11:44)
[2019-05-13] MEDS: ENOXAPARIN 40 MG/0.4 ML SQ SCH (16:23)
[2019-05-13] MEDS: ATORVASTATIN 20 MG TAB PO SCH (20:27)
[2019-05-13] MEDS: DOCUSATE NA/SENNA CONC 1 TAB PO SCH (20:27)
[2019-05-14] MEDS: LOSARTAN POTASSIUM 50 MG TABLET PO SCH ×2 (08:53→20:16)
[2019-05-14] MEDS: DULOXETINE 20 MG CAP PO SCH (08:53)
[2019-05-14] MEDS: CLOPIDOGREL 75 MG TABLET PO SCH (08:53)
[2019-05-14] MEDS: MEGESTROL 40 MG TAB PO SCH (08:54)
[2019-05-14] MEDS: CARBIDOPA/LEVODOPA 25/100 TAB PO SCH ×4 (08:54→20:16)
[2019-05-14] MEDS: ASPIRIN 81 MG CHEWABLE TABLET PO SCH (08:54)
[2019-05-14] MEDS: FOLIC ACID 1 MG TABLET PO SCH (08:54)
[2019-05-14] MEDS: PROMOD 30 ML DOSE PO SCH ×2 (08:55→20:17)
[2019-05-14] MEDS: TURMERIC ROOT EXTRACT PO SCH (08:55)
[2019-05-14] MEDS: ENSURE HIGH PROTEIN 237 ML CAN PO SCH ×2 (08:55→20:16)
--- NOTE | 2019-05-14 15:46 | FAST ---
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 River Pichardo M.D. ADMISSION DIAGNOSIS: - Stroke 01 - Right Body (Left Brain) (01.2) Nonhemorrhagic Acute Infarction in the Posterior Limb Internal Capsule on the left . - Neurologic Conditions 03 - Parkinsonism (03.2) Parkinsons Disease. EATING: EATING - STEP 1: Does the patient complete the activity by him/herself with no assistance (physical, verbal/nonverbal cueing, setup/clean-up)? No. EATING - STEP 2: Does the patient need only setup/clean-up assistance from one helper? No. EATING - STEP 3: Does the patient need only verbal/nonverbal cueing or touching/steadying/contact guard assistance fro m one helper? No. EATING - STEP 4: Does the patient need physical assistance - for example lifting or trunk support from one helper - wi th the helper providing less than half of the effort? Yes. 1. [id number] ADMISSION PERFORMANCE: Partial/moderate assistance CODE: 03 ORAL HYGIENE: Not assessed/no information CODE: - TOILETING HYGIENE: TOILETING HYGIENE - STEP 1: Does the patient complete the activity by him/herself with no assistance (physical, verbal/nonverbal cueing, setup/clean-up)? No. TOILETING HYGIENE - STEP 2: Does the patient need only setup/clean-up assistance from one helper? No. TOILETING HYGIENE - STEP 3: Does the patient need only verbal/nonverbal cueing or touching/steadying/contact guard assistance fro m one helper? No. TOILETING HYGIENE - STEP 4: Does the patient need physical assistance - for example lifting or trunk support from one helper - wi th the helper providing less than half of the effort? No. TOILETING HYGIENE - STEP 5: Does the patient need physical assistance - for example lifting or trunk support from one helper - wi th the helper providing more than half of the effort? Yes. 1. [id number] ADMISSION PERFORMANCE: Substantial/maximal assistance CODE: 02 BATHING: Not assessed/no information CODE: - DRESSING - UPPER BODY: DRESSING - UPPER BODY - STEP 1: Does the patient complete the activity by him/herself with no assistance (physical, verbal/nonverbal cueing, setup/clean-up)? No. DRESSING - UPPER BODY - STEP 2: Does the patient need only setup/clean-up assistance from one helper? No. DRESSING - UPPER BODY - STEP 3: Does the patient need only verbal/nonverbal cueing or touching/steadying/contact guard assistance fro m one helper? No. DRESSING - UPPER BODY - STEP 4: Does the patient need physical assistance - for example lifting or trunk support from one helper - wi th the helper providing less than half of the effort? No. DRESSING - UPPER BODY - STEP 5: Does the patient need physical assistance - for example lifting or trunk support from one helper - wi th the helper providing more than half of the effort? Yes. 1. [id number] ADMISSION PERFORMANCE: Substantial/maximal assistance CODE: 02 DRESSING - LOWER BODY: DRESSING - LOWER BODY - STEP 1: Does the patient complete the activity by him/herself with no assistance (physical, verbal/nonverbal cueing, setup/clean-up)? No. DRESSING - LOWER BODY - STEP 2: Does the patient need only setup/clean-up assistance from one helper? No. DRESSING - LOWER BODY - STEP 3: Does the patient need only verbal/nonverbal cueing or touching/steadying/contact guard assistance fro m one helper? No. DRESSING - LOWER BODY - STEP 4: Does the patient need physical assistance - for example lifting or trunk support from one helper - wi th the helper providing less than half of the effort? No. DRESSING - LOWER BODY - STEP 5: Does the patient need physical assistance - for example lifting or trunk support from one helper - wi th the helper providing more than half of the effort? Yes. 1. [id number] ADMISSION PERFORMANCE: Substantial/maximal assistance CODE: 02 PUTTING ON/TAKING OFF FOOTWEAR: FOOTWEAR - STEP 1: Does the patient complete the activity by him/herself with no assistance (physical, verbal/nonverbal cueing, setup/clean-up)? No. FOOTWEAR - STEP 2: Does the patient need only setup/clean-up assistance from one helper? No. FOOTWEAR - STEP 3: Does the patient need only verbal/nonverbal cueing or touching/steadying/contact guard assistance fro m one helper? No. FOOTWEAR - STEP 4: Does the patient need physical assistance - for example lifting or trunk support from one helper - wi th the helper providing less than half of the effort? No. FOOTWEAR - STEP 5: Does the patient need physical assistance - for example lifting or trunk support from one helper - wi th the helper providing more than half of the effort? Yes. 1. [id number] ADMISSION PERFORMANCE: Substantial/maximal assistance CODE: 02 DOES THE PATIENT USE A WHEELCHAIR/SCOOTER? CODE: EXPR INDICATE THE TYPE OF WHEELCHAIR/SCOOTER USED: CODE: EXPR INDICATE THE TYPE OF WHEELCHAIR/SCOOTER USED: CODE: EXPR BLADDER AND BOWEL: H350. BLADDER CONTINENCE (3-DAY ASSESSMENT PERIOD): Incontinent daily (at least once a day) CODE: 3 H400. BOWEL CONTINENCE (3-DAY ASSESSMENT PERIOD): Occasionally incontinent (one episode of bowel incontinence) CODE: 1 SIGNATURE PANEL: The following modified sections: 1. [id number] Admission Performance, 1. [id number] Admission Performance, 1. [id number] Admission Performance, 1. [id number] Admission Performance, 1. [id number] Admission Performance, 1. [id number] Admission Performance, 1. [id number] Admission Performance, 1. [id number] Admission Performance , H350. Bladder Continence (3-day assessment period), H400. Bowel Continence (3-day assessment period ) were [electronically] signed by Mary RomanoNFrank on TueMay 14 2019 15:45:27 GMT-0600 (Central Standard Time)
[2019-05-14] MEDS: ENOXAPARIN 40 MG/0.4 ML SQ SCH (16:24)
--- NOTE | 2019-05-14 17:59 | R.PN ---
ENCOUNTER DATE AND TIME: 05/14/2019 17:56 (UROLOGIST PHYSICIAN) NAME DORA PARKER DATE OF : 1935 DATE OF ADMISSION: 05/01/2019 19:11 (UROLOGIST PHYSICIAN) Nonhemorrhagic Acute Infarction in the Posterior Limb Internal Capsule on the left Parkinsons Disease CHIEF COMPLAINT: Right sided weakness from left subcortical stroke SUBJECTIVE: Pt denied any depression. Pt denied any Shortness of Breath. Ambulated 280' with contact guard assistance using a rolling walker. WBC 5.5, Hgb 12.2, prealbumin 19.2, UA shows trace esterase and bacteria 20-50. VITAL SIGNS Temperature: 97.7 F SBP/DBP: 134/72 Pulse: 57 Resp: 16 MEDICATION ALLERGIES: No Known Drug Allergies (NKDA) ENVIRONMENTAL ALLERGIES: None Known - Substance Allergies None Known - Other Allergies None Known CONSULT: Perform Neuro consult NURSING: - Shower allowing shower - Bladder care per protocol - Skin care per protocol PRECAUTIONS: - Weight Bearing Precaution WBAT right LE ACTIVITIES OOB only with supervision THERAPIES: - Occupational Therapy Cognitive Retraining. Visual Perceptual Training. - Dietary and Nutrition Adequate Nutrition. Nutritional Education. Nutritional Supplements. - Speech Therapy Cognitive Training. Dysphagia Therapy. Expressive Language Skills. Memory Strategies. Receptive Langu age Skills. Speech Intelligibility Training. PHYSICAL EXAM - Gen Alert and awake Lying in bed No apparent distress Oriented to: person, time, and place - Skin No skin breakdown. No abnormalities - Eyes No abnormalities - ENMT No abnormalities - Neck No abnormalities - CVS RRR - Chest No abnormalities - Resp Clear to auscultation - Abd Soft - GI Non distended No abnormalities - No abnormalities - Ext No significant edema - MSK 4+/5 weakness in right upper and lower extremity - Neuro 4/5 strength right upper and lower extremities. - Psych No abnormalities ASSESSMENT: Pt. is a 83 yo Right-handed white male.On 04/25/2019 Pt. presented to [facility] with sudden onset of right-side weakness.On 04/25/[address] [facility] Nonhemorrhagic Acute Infarction in the Posterior Limb Internal Capsule on the left .His impairment category is Stroke 01 - Right Body (Left Brain) (01.2).Pre-morbidly, Pt. was in dependent/mod-I in Locomotion, Safety Awareness, Balance, Social Cognition, Transfers Control, Sphinc ter Control, Communication, Endurance, and Self-Care; and he had good Locomotion, Safety Awareness, B alance, Social Cognition, Transfers Control, Sphincter Control, Self-Care, Communication, and Enduran ce.Currently, he has deficits of Locomotion, Balance, Safety Awareness, Transfers Control, Social Cog nition, Sphincter Control, Self-Care, Communication, and Endurance.Pt. is now referred to [facility] for acute in-patient rehabilitation in order to maximize patient's functional independence in activities of daily living, strength, ROM, and mobility.- Rehab Goal Patient has realistic goal of being discharged at assistance level 6-Marlon to reside at Home with Att endant. MDM/PLAN: - Physical Therapy Gait dysfunction - to improve, our physical therapists will perform initial evaluation of pt's statu s upon admission and devise an individualized program for Gait Training, and Wheel Chair mobility Inability to transfer - to improve, our physical therapists will perform initial evaluation of pt's status upon admission and devise an individualized program for Bed mobility Need for home safety evaluation - to improve, our physical therapists will perform initial evaluatio n of pt's status upon admission and devise an individualized program for Home Evaluation Need in caregiver upon discharge - to improve, our physical therapists will perform initial evaluati on of pt's status upon admission and devise an individualized program for Caregiver Training New precaution - to improve, our physical therapists will perform initial evaluation of pt's status upon admission and devise an individualized program for Patient precaution education Edema - to improve, our physical therapists will perform initial evaluation of pt's status upon admi ssion and devise an individualized program for Elevation Training, and Lymphedema Therapy Poor balance - to improve, our physical therapists will perform initial evaluation of pt's status up on admission and devise an individualized program for Balance Training Poor endurance - to improve, our physical therapists will perform initial evaluation of pt's status upon admission and devise an individualized program for Endurance Training Weakness - to improve, our physical therapists will perform initial evaluation of pt's status upon a dmission and devise an individualized program for Aquatic Therapy, Neuromuscular Reeducation, and Str engthening Achieving independence - to improve, our physical therapists will perform initial evaluation of pt's status upon admission and devise an individualized program for Community Reintegration Activities - Occupational Therapy ADL deficits - to improve, our occupation therapists will perform initial evaluation of pt's status upon admission and devise an individualized program for Bathing, Bed mobility, Community Reintegratio n, Cooking, Dressing, Eating, Fine Motor Skills, Grooming, Homemaking, Kitchen Mobility, Laundry, Pat ient Education, Safety Awareness, Splinting - Positioning, Transfers(Toilet, Tub, Shower), and Wheel Chair Management Cognitive deficits - to improve, our occupation therapists will perform initial evaluation of pt's s tatus upon admission and devise an individualized program for Cognition - orientation Need for care consultant - to improve, our occupation therapists will perform initial evaluation of pt's status upon admission and devise an individualized program for Caregiver Training Weakness - to improve, our occupation therapists will perform initial evaluation of pt's status upon admission and devise an individualized program for Aquatic Therapy, Balance, Endurance, UE ROM, and UE strengthening - Other See attached MAR (Medication Administration Record) - Diet Type Continue Regular - Diet - Liquid Texture Continue Thin - Tube Feed Continue N/A - Bladder care per protocol - Weight Bearing Precaution WBAT right LE - Skin care per protocol - N/A Perform Neuro consult - Diet - Solid Texture Continue Regular Continue Mechanical Soft - Shower allowing shower for Dementia, TBI, Stroke, or others FUNCTIONAL STATUS: UPDATED AT WEEKLY TEAM CONFERENCE - Bladder Same accident frequency: 7-Ind - No accidents in the past 7 days - Bowel Same accident frequency: 7-Ind - No accidents in the past 7 days - Walking Same score based on distance walked: 0(N/A) Same score based on distance walked: 1(<=50ft) - Wheelchair Same score based on distance traveled: 0(N/A) FUNCTIONAL STATUS: - Self-Care A. Eating sup B. Grooming sup C. Bathing modA D. Dressing - Upper modA E. Dressing - Lower modA F. Toileting modA - Sphincter Control G. Bladder control sup H. Bowel control sup - Transfers Control I. Bed/Chair/Wheelchair Reynaldo J. Toilet Reynaldo K. Tub/Shower Reynaldo - Locomotion L. Walk/Wheelchair (B) Reynaldo M. Stairs modA - Communication N. Comprehension (B) sup O. Expression (B) Reynaldo - Social Cognition P. Social Interaction sup Q. Problem Solving sup R. Memory sup - Endurance Fair - Balance Fair - Safety Awareness Fair QI SCORES: - Self-Care A. Eating 05-Setup or clean-up assistance B. Oral hygiene 05-Setup or clean-up assistance C. Toileting hygiene 03-Partial/moderate assistance E. Shower/bathe self 03-Partial/moderate assistance F. Upper body dressing 03-Partial/moderate assistance G. Lower body dressing 03-Partial/moderate assistance H. Putting on/taking off footwear 02-Substantial/maximal assistance - Mobility A. Roll left and right 03-Partial/moderate assistance B. Sit to lying 03-Partial/moderate assistance C. Lying to sitting on side of bed 03-Partial/moderate assistance D. Sit to stand 03-Partial/moderate assistance E. Chair/[id number] transfer 03-Partial/moderate assistance F. Toilet transfer 03-Partial/moderate assistance G. Car transfer 10-Not attempted due to environmental limitations I. Walk 10 feet 02-Substantial/maximal assistance J. Walk 50 feet with two turns 88-Not attempted due to medical condition or safety concerns K. Walk 150 feet 88-Not attempted due to medical condition or safety concerns L. Walking 10 feet on uneven surfaces 88-Not attempted due to medical condition or safety concerns M. 1 step (curb) 88-Not attempted due to medical condition or safety concerns N. 4 steps 88-Not attempted due to medical condition or safety concerns O. 12 steps 88-Not attempted due to medical condition or safety concerns P. Picking up object 88-Not attempted due to medical condition or safety concerns R. Wheel 50 feet with two turns 88-Not attempted due to medical condition or safety concerns S. Wheel 150 feet 88-Not attempted due to medical condition or safety concerns - Bladder and Bowel Bladder continence 0-Always continent Bowel continence 0-Always continent - Endurance Fair - Balance Fair - Safety Awareness Fair CURRENT FUNC. DEFICITS: Self-Care, Mobility, Endurance, Balance, and Safety Awareness SIGNATURE PANEL: (UROLOGIST PHYSICIAN)
[2019-05-14] MEDS: DOCUSATE NA/SENNA CONC 1 TAB PO SCH (20:16)
[2019-05-14] MEDS: ATORVASTATIN 20 MG TAB PO SCH (20:16)
[2019-05-15] MEDS: PROMOD 30 ML DOSE PO SCH ×2 (08:00→19:22)
[2019-05-15] MEDS: TURMERIC ROOT EXTRACT PO SCH (08:00)
[2019-05-15] MEDS: LOSARTAN POTASSIUM 50 MG TABLET PO SCH ×2 (08:45→19:21)
[2019-05-15] MEDS: CLOPIDOGREL 75 MG TABLET PO SCH (08:45)
[2019-05-15] MEDS: ASPIRIN 81 MG CHEWABLE TABLET PO SCH (08:46)
[2019-05-15] MEDS: FOLIC ACID 1 MG TABLET PO SCH (08:46)
[2019-05-15] MEDS: MEGESTROL 40 MG TAB PO SCH (08:46)
[2019-05-15] MEDS: DULOXETINE 20 MG CAP PO SCH (08:46)
[2019-05-15] MEDS: CARBIDOPA/LEVODOPA 25/100 TAB PO SCH ×4 (08:46→19:22)
[2019-05-15] MEDS: ENSURE HIGH PROTEIN 237 ML CAN PO SCH ×2 (08:47→19:22)
[2019-05-15] MEDS: ENOXAPARIN 40 MG/0.4 ML SQ SCH (16:29)
[2019-05-15] MEDS: BISACODYL 10 MG RECTAL SUPP PR PRN (16:29)
[2019-05-15] MEDS: DOCUSATE NA/SENNA CONC 1 TAB PO SCH (19:22)
[2019-05-15] MEDS: ATORVASTATIN 20 MG TAB PO SCH (19:22)
[2019-05-16] MEDS: PROMOD 30 ML DOSE PO SCH ×2 (08:00→19:57)
[2019-05-16] MEDS: TURMERIC ROOT EXTRACT PO SCH (08:00)
[2019-05-16] MEDS: FOLIC ACID 1 MG TABLET PO SCH (08:30)
[2019-05-16] MEDS: CLOPIDOGREL 75 MG TABLET PO SCH (08:30)
[2019-05-16] MEDS: MEGESTROL 40 MG TAB PO SCH (08:30)
[2019-05-16] MEDS: ASPIRIN 81 MG CHEWABLE TABLET PO SCH (08:30)
[2019-05-16] MEDS: LOSARTAN POTASSIUM 50 MG TABLET PO SCH ×2 (08:30→19:56)
[2019-05-16] MEDS: CARBIDOPA/LEVODOPA 25/100 TAB PO SCH ×4 (08:31→19:57)
[2019-05-16] MEDS: DULOXETINE 20 MG CAP PO SCH (08:32)
[2019-05-16] MEDS: ENSURE HIGH PROTEIN 237 ML CAN PO SCH ×2 (08:32→19:56)
[2019-05-16] MEDS: ENOXAPARIN 40 MG/0.4 ML SQ SCH (16:15)
[2019-05-16] MEDS: ATORVASTATIN 20 MG TAB PO SCH (19:56)
[2019-05-16] MEDS: DOCUSATE NA/SENNA CONC 1 TAB PO SCH (19:56)
[2019-05-17 05:56] LABS: Absolute Lymphocytes (CBC) 1.2 K/uL (0.7-4.9); Basophils % 1.1 % (0-1.3); Hematocrit 32.4 % (39.6-49.0); Lymphocytes % 25.7 % (15.3-44.8); MPV 7.9 fL (7.6-11.3); RBC Red Blood Cell Count 3.43 M/uL (4.33-5.43)
[2019-05-17 06:17] LABS: Albumin 2.9 g/dL (3.4-5.0); Magnesium 2.2 mg/dL (1.8-2.4); Potassium 4.2 mmol/L (3.5-5.1); Prealbumin 15.7 mg/dL (20-40)
[2019-05-17] MEDS: ENSURE HIGH PROTEIN 237 ML CAN PO SCH ×2 (08:00→19:30)
[2019-05-17] MEDS: TURMERIC ROOT EXTRACT PO SCH (08:30)
[2019-05-17] MEDS: FOLIC ACID 1 MG TABLET PO SCH (08:32)
[2019-05-17] MEDS: ACETAMINOPHEN 500 MG TAB PO PRN ×2 (08:32→13:35)
[2019-05-17] MEDS: MEGESTROL 40 MG TAB PO SCH (08:32)
[2019-05-17] MEDS: DULOXETINE 20 MG CAP PO SCH (08:33)
[2019-05-17] MEDS: LOSARTAN POTASSIUM 50 MG TABLET PO SCH ×2 (08:33→19:31)
[2019-05-17] MEDS: CARBIDOPA/LEVODOPA 25/100 TAB PO SCH ×4 (08:34→19:30)
[2019-05-17] MEDS: CLOPIDOGREL 75 MG TABLET PO SCH (08:34)
[2019-05-17] MEDS: ASPIRIN 81 MG CHEWABLE TABLET PO SCH (08:34)
[2019-05-17] MEDS: PROMOD 30 ML DOSE PO SCH ×2 (08:53→19:30)
--- NOTE | 2019-05-17 09:46 | FAST ---
SHIFT START DATE/TIME: 05/17/2019 07:00 (GOVERNMENT SERVICES PROFESSIONAL) SHIFT END DATE/TIME: 05/17/2019 19:00 (GOVERNMENT SERVICES PROFESSIONAL) NAME DORA PARKER DATE OF : 1935 DATE OF ADMISSION: 05/01/2019 19:11 (GOVERNMENT SERVICES PROFESSIONAL) PHONE: AGE: 83 N# [id number] GENDER: Male ENCOUNTER PHYSICIAN: Dr. River Pichardo M.D. ADMISSION DIAGNOSIS: - Stroke 01 - Right Body (Left Brain) (01.2) Nonhemorrhagic Acute Infarction in the Posterior Limb Internal Capsule on the left . - Neurologic Conditions 03 - Parkinsonism (03.2) Parkinsons Disease. EATING: EATING - STEP 1: Does the patient complete the activity by him/herself with no assistance (physical, verbal/nonverbal cueing, setup/clean-up)? No. EATING - STEP 2: Does the patient need only setup/clean-up assistance from one helper? No. EATING - STEP 3: Does the patient need only verbal/nonverbal cueing or touching/steadying/contact guard assistance fro m one helper? Yes. 1. [id number] ADMISSION PERFORMANCE: Supervision or touching assistance CODE: 04 ORAL HYGIENE: ORAL HYGIENE - STEP 1: Does the patient complete the activity by him/herself with no assistance (physical, verbal/nonverbal cueing, setup/clean-up)? No. ORAL HYGIENE - STEP 2: Does the patient need only setup/clean-up assistance from one helper? No. ORAL HYGIENE - STEP 3: Does the patient need only verbal/nonverbal cueing or touching/steadying/contact guard assistance fro m one helper? Yes. 1. [id number] ADMISSION PERFORMANCE: Supervision or touching assistance CODE: 04 TOILETING HYGIENE: TOILETING HYGIENE - STEP 1: Does the patient complete the activity by him/herself with no assistance (physical, verbal/nonverbal cueing, setup/clean-up)? No. TOILETING HYGIENE - STEP 2: Does the patient need only setup/clean-up assistance from one helper? No. TOILETING HYGIENE - STEP 3: Does the patient need only verbal/nonverbal cueing or touching/steadying/contact guard assistance fro m one helper? Yes. 1. [id number] ADMISSION PERFORMANCE: Supervision or touching assistance CODE: 04 BATHING: Not assessed/no information CODE: - DRESSING - UPPER BODY: DRESSING - UPPER BODY - STEP 1: Does the patient complete the activity by him/herself with no assistance (physical, verbal/nonverbal cueing, setup/clean-up)? No. DRESSING - UPPER BODY - STEP 2: Does the patient need only setup/clean-up assistance from one helper? No. DRESSING - UPPER BODY - STEP 3: Does the patient need only verbal/nonverbal cueing or touching/steadying/contact guard assistance fro m one helper? Yes. 1. [id number] ADMISSION PERFORMANCE: Supervision or touching assistance CODE: 04 DRESSING - LOWER BODY: DRESSING - LOWER BODY - STEP 1: Does the patient complete the activity by him/herself with no assistance (physical, verbal/nonverbal cueing, setup/clean-up)? No. DRESSING - LOWER BODY - STEP 2: Does the patient need only setup/clean-up assistance from one helper? No. DRESSING - LOWER BODY - STEP 3: Does the patient need only verbal/nonverbal cueing or touching/steadying/contact guard assistance fro m one helper? Yes. 1. [id number] ADMISSION PERFORMANCE: Supervision or touching assistance CODE: 04 PUTTING ON/TAKING OFF FOOTWEAR: Not assessed/no information CODE: - ROLL LEFT AND RIGHT: Not assessed/no information CODE: - SIT TO LYING: Not assessed/no information CODE: - LYING TO SITTING: LYING TO SITTING ON SIDE OF BED - STEP 1: Does the patient complete the activity by him/herself with no assistance (physical, verbal/nonverbal cueing, setup/clean-up)? No. LYING TO SITTING ON SIDE OF BED - STEP 2: Does the patient need only setup/clean-up assistance from one helper? No. LYING TO SITTING ON SIDE OF BED - STEP 3: Does the patient need only verbal/nonverbal cueing or touching/steadying/contact guard assistance fro m one helper? Yes. 1. [id number] ADMISSION PERFORMANCE: Supervision or touching assistance CODE: 04 SIT TO STAND: SIT TO STAND - STEP 1: Does the patient complete the activity by him/herself with no assistance (physical, verbal/nonverbal cueing, setup/clean-up)? No. SIT TO STAND - STEP 2: Does the patient need only setup/clean-up assistance from one helper? No. SIT TO STAND - STEP 3: Does the patient need only verbal/nonverbal cueing or touching/steadying/contact guard assistance fro m one helper? Yes. 1. [id number] ADMISSION PERFORMANCE: Supervision or touching assistance CODE: 04 TRANSFERS: BED, CHAIR: [id number] TRANSFER - STEP 1: Does the patient complete the activity by him/herself with no assistance (physical, verbal/nonverbal cueing, setup/clean-up)? No. [id number] TRANSFER - STEP 2: Does the patient need only setup/clean-up assistance from one helper? No. CHAIR/[id number] TRANSFER - STEP 3: Does the patient need only verbal/nonverbal cueing or touching/steadying/contact guard assistance fro m one helper? Yes. 1. [id number] ADMISSION PERFORMANCE: Supervision or touching assistance CODE: TRANSFER TOILET: TOILET TRANSFER - STEP 1: Does the patient complete the activity by him/herself with no assistance (physical, verbal/nonverbal cueing, setup/clean-up)? No. TOILET TRANSFER - STEP 2: Does the patient need only setup/clean-up assistance from one helper? No. TOILET TRANSFER - STEP 3: Does the patient need only verbal/nonverbal cueing or touching/steadying/contact guard assistance fro m one helper? Yes. 1. [id number] ADMISSION PERFORMANCE: Supervision or touching assistance CODE: 04 TRANSFERS: CAR: Not assessed/no information CODE: - WALK 10 FEET: Not assessed/no information CODE: - 1 STEP (CURB): Not assessed/no information CODE: - PICKING UP OBJECT: Not assessed/no information CODE: - DOES THE PATIENT USE A WHEELCHAIR/SCOOTER? CODE: EXPR WHEEL 50 FEET WITH TWO TURNS: Not assessed/no information CODE: - INDICATE THE TYPE OF WHEELCHAIR/SCOOTER USED: CODE: EXPR WHEEL 150 FEET: Not assessed/no information CODE: - INDICATE THE TYPE OF WHEELCHAIR/SCOOTER USED: CODE: EXPR BLADDER AND BOWEL: H350. BLADDER CONTINENCE (3-DAY ASSESSMENT PERIOD): Incontinent daily (at least once a day) CODE: 3 H400. BOWEL CONTINENCE (3-DAY ASSESSMENT PERIOD): Frequently incontinent (2 or more episodes of bowel incontinence, but at least one continent bowel mo vement) CODE: 2 SIGNATURE PANEL: The following modified sections: 1. [id number] Admission Performance, 1. [id number] Admission Performance, 1. [id number] Admission Performance, 1. [id number] Admission Performance, 1. [id number] Admission Performance, 1. [id number] Admission Performance, 1. [id number] Admission Performance, 1. [id number] Admission Performance , 1. [id number] Admission Performance, Code, H350. Bladder Continence (3-day assessment period), H350. B ladder Continence (3-day assessment period), H400. Bowel Continence (3-day assessment period) were [e lectronically] signed by Christian Calvillo on TueMay 17 2019 09:46:12 [facility]-0600 (Central Standard Time)
[2019-05-17] MEDS: ENOXAPARIN 40 MG/0.4 ML SQ SCH (16:30)
--- NOTE | 2019-05-17 17:31 | R.PN ---
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 Pt denied any Shortness of Breath. Ambulated 316' with standby assistance using a rolling walker. WBC 4.7, Hgb 11.5, prealbumin 15.7. VITAL SIGNS Temperature: 97.7 F SBP/DBP: 116/74 Pulse: 58 Resp: 16 MEDICATION ALLERGIES: No Known Drug Allergies (NKDA) ENVIRONMENTAL ALLERGIES: None Known - Substance Allergies None Known - Other Allergies None Known CONSULT: Perform Neuro consult NURSING: - Shower allowing shower - Bladder care per protocol - Skin care per protocol PRECAUTIONS: - Weight Bearing Precaution WBAT right LE ACTIVITIES OOB only with supervision THERAPIES: - Occupational Therapy Cognitive Retraining. Visual Perceptual Training. - Dietary and Nutrition Adequate Nutrition. Nutritional Education. Nutritional Supplements. - Speech Therapy Cognitive Training. Dysphagia Therapy. Expressive Language Skills. Memory Strategies. Receptive Langu age Skills. Speech Intelligibility Training. PHYSICAL EXAM - Gen Alert and awake Lying in bed No apparent distress Oriented to: person, time, and place - Skin No skin breakdown. No abnormalities - Eyes No abnormalities - ENMT No abnormalities - Neck No abnormalities - CVS RRR - Chest No abnormalities - Resp Clear to auscultation - Abd Soft - GI Non distended No abnormalities - No abnormalities - Ext No significant edema - MSK 4+/5 weakness in right upper and lower extremity - Neuro 4/5 strength right upper and lower extremities. - Psych No abnormalities ASSESSMENT: Pt. is a 83 yo Right-handed white male.On 04/25/2019 Pt. presented to [facility] with sudden onset of right-side weakness.On 04/25/2019 he was [facility] to [facility] with diagnosis Nonhemorrhagic Acute Infarction in the Posterior Limb Internal Capsule on the left .His impairment category is Stroke 01 - Right Body (Left Brain) (01.2).Pre-morbidly, Pt. was in dependent/mod-I in Locomotion, Safety Awareness, Balance, Social Cognition, Transfers Control, Sphinc ter Control, Communication, Endurance, and Self-Care; and he had good Locomotion, Safety Awareness, B alance, Social Cognition, Transfers Control, Sphincter Control, Self-Care, Communication, and Enduran ce.Currently, he has deficits of Locomotion, Balance, Safety Awareness, Transfers Control, Social Cog nition, Sphincter Control, Self-Care, Communication, and Endurance.Pt. is now referred to [facility] for acute in-patient rehabilitation in order to maximize patient's functional independence in activities of daily living, strength, ROM, and mobility.- Rehab Goal Patient has realistic goal of being discharged at assistance level 6-Marlon to reside at Home with Att endant. MDM/PLAN: - Physical Therapy Gait dysfunction - to improve, our physical therapists will perform initial evaluation of pt's statu s upon admission and devise an individualized program for Gait Training, and Wheel Chair mobility Inability to transfer - to improve, our physical therapists will perform initial evaluation of pt's status upon admission and devise an individualized program for Bed mobility Need for home safety evaluation - to improve, our physical therapists will perform initial evaluatio n of pt's status upon admission and devise an individualized program for Home Evaluation Need in caregiver upon discharge - to improve, our physical therapists will perform initial evaluati on of pt's status upon admission and devise an individualized program for Caregiver Training New precaution - to improve, our physical therapists will perform initial evaluation of pt's status upon admission and devise an individualized program for Patient precaution education Edema - to improve, our physical therapists will perform initial evaluation of pt's status upon admi ssion and devise an individualized program for Elevation Training, and Lymphedema Therapy Poor balance - to improve, our physical therapists will perform initial evaluation of pt's status up on admission and devise an individualized program for Balance Training Poor endurance - to improve, our physical therapists will perform initial evaluation of pt's status upon admission and devise an individualized program for Endurance Training Weakness - to improve, our physical therapists will perform initial evaluation of pt's status upon a dmission and devise an individualized program for Aquatic Therapy, Neuromuscular Reeducation, and Str engthening Achieving independence - to improve, our physical therapists will perform initial evaluation of pt's status upon admission and devise an individualized program for Community Reintegration Activities - Occupational Therapy ADL deficits - to improve, our occupation therapists will perform initial evaluation of pt's status upon admission and devise an individualized program for Bathing, Bed mobility, Community Reintegratio n, Cooking, Dressing, Eating, Fine Motor Skills, Grooming, Homemaking, Kitchen Mobility, Laundry, Pat ient Education, Safety Awareness, Splinting - Positioning, Transfers(Toilet, Tub, Shower), and Wheel Chair Management Cognitive deficits - to improve, our occupation therapists will perform initial evaluation of pt's s tatus upon admission and devise an individualized program for Cognition - orientation Need for healthcare technician - to improve, our occupation therapists will perform initial evaluation of pt's status upon admission and devise an individualized program for Caregiver Training Weakness - to improve, our occupation therapists will perform initial evaluation of pt's status upon admission and devise an individualized program for Aquatic Therapy, Balance, Endurance, UE ROM, and UE strengthening - Other See attached MAR (Medication Administration Record) - Diet Type Continue Regular - Diet - Liquid Texture Continue Thin - Tube Feed Continue N/A - Bladder care per protocol - Weight Bearing Precaution WBAT right LE - Skin care per protocol - N/A Perform Neuro consult - Diet - Solid Texture Continue Regular Continue Mechanical Soft - Shower allowing shower for Dementia, TBI, Stroke, or others FUNCTIONAL STATUS: UPDATED AT WEEKLY TEAM CONFERENCE - Bladder Same accident frequency: 7-Ind - No accidents in the past 7 days - Bowel Same accident frequency: 7-Ind - No accidents in the past 7 days - Walking Same score based on distance walked: 0(N/A) Same score based on distance walked: 1(<=50ft) - Wheelchair Same score based on distance traveled: 0(N/A) FUNCTIONAL STATUS: - Self-Care A. Eating sup B. Grooming sup C. Bathing modA D. Dressing - Upper modA E. Dressing - Lower modA F. Toileting modA - Sphincter Control G. Bladder control sup H. Bowel control sup - Transfers Control I. Bed/Chair/Wheelchair Reynaldo J. Toilet Reynaldo K. Tub/Shower Reynaldo - Locomotion L. Walk/Wheelchair (B) Reynaldo M. Stairs modA - Communication N. Comprehension (B) sup O. Expression (B) Reynaldo - Social Cognition P. Social Interaction sup Q. Problem Solving sup R. Memory sup - Endurance Fair - Balance Fair - Safety Awareness Fair QI SCORES: - Self-Care A. Eating 05-Setup or clean-up assistance B. Oral hygiene 05-Setup or clean-up assistance C. Toileting hygiene 03-Partial/moderate assistance E. Shower/bathe self 03-Partial/moderate assistance F. Upper body dressing 03-Partial/moderate assistance G. Lower body dressing 03-Partial/moderate assistance H. Putting on/taking off footwear 02-Substantial/maximal assistance - Mobility A. Roll left and right 03-Partial/moderate assistance B. Sit to lying 03-Partial/moderate assistance C. Lying to sitting on side of bed 03-Partial/moderate assistance D. Sit to stand 03-Partial/moderate assistance E. Chair/xnb-xc-plsio transfer 03-Partial/moderate assistance F. Toilet transfer 03-Partial/moderate assistance G. Car transfer 10-Not attempted due to environmental limitations I. Walk 10 feet 02-Substantial/maximal assistance J. Walk 50 feet with two turns 88-Not attempted due to medical condition or safety concerns K. Walk 150 feet 88-Not attempted due to medical condition or safety concerns L. Walking 10 feet on uneven surfaces 88-Not attempted due to medical condition or safety concerns M. 1 step (curb) 88-Not attempted due to medical condition or safety concerns N. 4 steps 88-Not attempted due to medical condition or safety concerns O. 12 steps 88-Not attempted due to medical condition or safety concerns P. Picking up object 88-Not attempted due to medical condition or safety concerns R. Wheel 50 feet with two turns 88-Not attempted due to medical condition or safety concerns S. Wheel 150 feet 88-Not attempted due to medical condition or safety concerns - Bladder and Bowel Bladder continence 0-Always continent Bowel continence 0-Always continent - Endurance Fair - Balance Fair - Safety Awareness Fair CURRENT FUNC. DEFICITS: Self-Care, Mobility, Endurance, Balance, and Safety Awareness SIGNATURE PANEL: (VISION REHABILITATION THERAPIST)
[2019-05-17] MEDS: DOCUSATE NA/SENNA CONC 1 TAB PO SCH (19:30)
[2019-05-17] MEDS: ATORVASTATIN 20 MG TAB PO SCH (19:30)
[2019-05-18] MEDS: ENSURE HIGH PROTEIN 237 ML CAN PO SCH ×2 (07:37→20:00)
[2019-05-18] MEDS: TURMERIC ROOT EXTRACT PO SCH ×2 (07:37→07:38)
[2019-05-18] MEDS: FOLIC ACID 1 MG TABLET PO SCH (07:38)
[2019-05-18] MEDS: CLOPIDOGREL 75 MG TABLET PO SCH (07:39)
[2019-05-18] MEDS: CARBIDOPA/LEVODOPA 25/100 TAB PO SCH ×4 (07:39→20:20)
[2019-05-18] MEDS: DULOXETINE 20 MG CAP PO SCH (07:39)
[2019-05-18] MEDS: ASPIRIN 81 MG CHEWABLE TABLET PO SCH (07:39)
[2019-05-18] MEDS: MEGESTROL 40 MG TAB PO SCH (07:39)
[2019-05-18] MEDS: LOSARTAN POTASSIUM 50 MG TABLET PO SCH ×2 (07:39→20:00)
[2019-05-18] MEDS: PROMOD 30 ML DOSE PO SCH ×2 (07:40→20:21)
--- NOTE | 2019-05-18 09:29 | P.RH.PN ---
Estimated Length of Stay: 19 Expected Discharge Date: 05/19/19 Discharge Disposition Plan: Home Family Support: Yes Nursing Home Goal: Mobility, Transfers, Self Care Vital Signs: Last Vital Signs Temp 97.8 F 05/18/19 06:52 Pulse 55 05/18/19 06:52 Resp 16 05/18/19 06:52 BP 129/70 05/18/19 06:52 Pulse Ox 95 05/18/19 06:52 Laboratory: Laboratory Last Values WBC 4.7 K/uL (4.3-10.9) D 05/17/19 05:43 RBC 3.43 M/uL (4.33-5.43) L 05/17/19 05:43 Hgb 11.5 g/dL (13.6-17.9) L 05/17/19 05:43 Hct 32.4 % (39.6-49.0) L 05/17/19 05:43 MCV 94.5 fL (80-100) 05/17/19 05:43 MCH 33.5 pg (27.0-35.0) 05/17/19 05:43 MCHC 35.4 g/dL (32.0-36.0) 05/17/19 05:43 RDW 14.3 % (12.1-15.2) 05/17/19 05:43 Plt Count 168 K/uL (152-406) D 05/17/19 05:43 MPV 7.9 fL (7.6-11.3) 05/17/19 05:43 Neutrophils % 62.1 % (41.7-73.7) 05/17/19 05:43 Lymphocytes % 25.7 % (15.3-44.8) 05/17/19 05:43 Monocytes % 9.4 % (3.3-12.3) 05/17/19 05:43 Eosinophils % 1.7 % (0-4.4) 05/17/19 05:43 Basophils % 1.1 % (0-1.3) 05/17/19 05:43 Absolute Neutrophils 2.9 K/uL (1.8-8.0) 05/17/19 05:43 Absolute Lymphocytes 1.2 K/uL (0.7-4.9) 05/17/19 05:43 Absolute Monocytes 0.4 K/uL (0.1-1.3) 05/17/19 05:43 Absolute Eosinophils 0.1 K/uL (0-0.5) 05/17/19 05:43 Absolute Basophils 0.1 K/uL (0-0.5) 05/17/19 05:43 Sodium 139 mmol/L (136-145) 05/17/19 05:43 Potassium 4.2 mmol/L (3.5-5.1) 05/17/19 05:43 Chloride 109 mmol/L (98-107) H 05/17/19 05:43 Carbon Dioxide 23 mmol/L (21-32) 05/17/19 05:43 BUN 20 mg/dL (7-18) H 05/17/19 05:43 Creatinine 0.85 mg/dL (0.55-1.3) 05/17/19 05:43 Estimated GFR 86 mL/min (=/>90) L 05/17/19 05:43 Glucose 98 mg/dL (74-106) 05/17/19 05:43 Calcium 8.2 mg/dL (8.5-10.1) L 05/17/19 05:43 Magnesium 2.2 mg/dL (1.8-2.4) 05/17/19 05:43 Albumin 2.9 g/dL (3.4-5.0) L 05/17/19 05:43 Prealbumin 15.7 mg/dL (20-40) L 05/17/19 05:43 Urine Color Yellow 05/03/19 09:00 Urine Appearance Clear 05/03/19 09:00 Urine pH 6.0 (5.0-7.0) 05/03/19 09:00 Ur Specific [place] 1.025 (1.005-1.030) 05/03/19 09:00 Urine Ketones Negative (NEG) 05/03/19 09:00 Urine Blood Negative (NEG) 05/03/19 09:00 Urine Nitrite Negative (NEG) 05/03/19 09:00 Urine Bilirubin Negative (NEG) 05/03/19 09:00 Urine Urobilinogen 1.0 mg/dL (0.2-1.0) 05/03/19 09:00 Ur Leukocyte Esterase Trace (NEG) H 05/03/19 09:00 Urine RBC <5 /HPF (NONE SEEN) 05/03/19 09:00 Urine WBC 5-10 /HPF (<5) H 05/03/19 09:00 Ur Squamous Epith Cells 5-10 /HPF (NONE SEEN) H 05/03/19 09:00 Urine Bacteria 20-50 /HPF (NONE SEEN) H 05/03/19 09:00 Hyaline Casts 0-5 /LPF (NONE SEEN) 05/03/19 09:00 Urine Culture Reflexed Reflexed 05/03/19 09:00 Urine Glucose Negative (NEG) 05/03/19 09:00 Urine Total Protein Negative (NEG) 05/03/19 09:00 Weight: 146 lb 9.6 oz Wound Present: No Closed Surgical Incision Present: No Negative Pressure Wound Therapy Present: No Physician Update: Labs were reviewed and are stable. He is doing well with occupational and physical therapy. He requires contact guard to setup with ADLs. He will be discharged home in the AM and has a 24 hr care at home. [facility]. Medical Issues: Patient is always continent with bladder and bowel. Pain Issues: Patient is taking Tylenol 500mg Q6H PO PRN and Tramadol 50mg Q8H PO PRN for pain. Functional Improvement: Patient will continue to work toward meeting goals; patient is showing good overall progress w/ transfers and gait tx. Speech Therapy Update: Patient has been working hard on increasing his volume and vocal strength during vocal warm ups, speech tasks, and in conversation. Patient requires consistent cues to carry over strategies into natural, spontaneous speech or unstructured conversation. Patient requires a lot of reminders due to some cognitive impairments which appear to be mild-moderate for his age and condition. Patient is tolerating current diet level: mechanical soft solids, chopped, thin liquids (no straws), and whole medications with pudding/puree. Patient would benefit from at least 2 more weeks of intensive therapy. Summary: Patient's care plan and lobsterman goals have been reviewed and revised as necessary. Please see the Rehabilitation Signature page for all necessary signatures.
--- NOTE | 2019-05-18 13:30 | FAST ---
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 River Pichardo M.D. ADMISSION DIAGNOSIS: - Stroke 01 - Right Body (Left Brain) (01.2) Nonhemorrhagic Acute Infarction in the Posterior Limb Internal Capsule on the left . - Neurologic Conditions 03 - Parkinsonism (03.2) Parkinsons Disease. ROLL LEFT AND RIGHT: ROLL LEFT AND RIGHT - STEP 1: Does the patient complete the activity by him/herself with no assistance (physical, verbal/nonverbal cueing, setup/clean-up)? No. ROLL LEFT AND RIGHT - STEP 2: Does the patient need only setup/clean-up assistance from one helper? No. ROLL LEFT AND RIGHT - STEP 3: Does the patient need only verbal/nonverbal cueing or touching/steadying/contact guard assistance fro m one helper? No. ROLL LEFT AND RIGHT - STEP 4: Does the patient need physical assistance - for example lifting or trunk support from one helper - wi th the helper providing less than half of the effort? No. ROLL LEFT AND RIGHT - STEP 5: Does the patient need physical assistance - for example lifting or trunk support from one helper - wi th the helper providing more than half of the effort? Yes. 1. [id number] ADMISSION PERFORMANCE: Substantial/maximal assistance CODE: 02 SIT TO LYING: SIT TO LYING - STEP 1: Does the patient complete the activity by him/herself with no assistance (physical, verbal/nonverbal cueing, setup/clean-up)? No. SIT TO LYING - STEP 2: Does the patient need only setup/clean-up assistance from one helper? No. SIT TO LYING - STEP 3: Does the patient need only verbal/nonverbal cueing or touching/steadying/contact guard assistance fro m one helper? No. SIT TO LYING - STEP 4: Does the patient need physical assistance - for example lifting or trunk support from one helper - wi th the helper providing less than half of the effort? No. SIT TO LYING - STEP 5: Does the patient need physical assistance - for example lifting or trunk support from one helper - wi th the helper providing more than half of the effort? Yes. 1. [id number] ADMISSION PERFORMANCE: Substantial/maximal assistance CODE: 02 LYING TO SITTING: LYING TO SITTING ON SIDE OF BED - STEP 1: Does the patient complete the activity by him/herself with no assistance (physical, verbal/nonverbal cueing, setup/clean-up)? No. LYING TO SITTING ON SIDE OF BED - STEP 2: Does the patient need only setup/clean-up assistance from one helper? No. LYING TO SITTING ON SIDE OF BED - STEP 3: Does the patient need only verbal/nonverbal cueing or touching/steadying/contact guard assistance fro m one helper? No. LYING TO SITTING ON SIDE OF BED - STEP 4: Does the patient need physical assistance - for example lifting or trunk support from one helper - wi th the helper providing less than half of the effort? Yes. 1. [id number] ADMISSION PERFORMANCE: Partial/moderate assistance CODE: 03 SIT TO STAND: SIT TO STAND - STEP 1: Does the patient complete the activity by him/herself with no assistance (physical, verbal/nonverbal cueing, setup/clean-up)? No. SIT TO STAND - STEP 2: Does the patient need only setup/clean-up assistance from one helper? No. SIT TO STAND - STEP 3: Does the patient need only verbal/nonverbal cueing or touching/steadying/contact guard assistance fro m one helper? Yes. 1. [id number] ADMISSION PERFORMANCE: Supervision or touching assistance CODE: 04 TRANSFERS: BED, CHAIR: CHAIR/[id number] TRANSFER - STEP 1: Does the patient complete the activity by him/herself with no assistance (physical, verbal/nonverbal cueing, setup/clean-up)? No. CHAIR/[id number] TRANSFER - STEP 2: Does the patient need only setup/clean-up assistance from one helper? No. CHAIR/[id number] TRANSFER - STEP 3: Does the patient need only verbal/nonverbal cueing or touching/steadying/contact guard assistance fro m one helper? No. CHAIR/[id number] TRANSFER - STEP 4: Does the patient need physical assistance - for example lifting or trunk support from one helper - wi th the helper providing less than half of the effort? Yes. 1. [id number] ADMISSION PERFORMANCE: Partial/moderate assistance CODE: 03 TRANSFER TOILET: TOILET TRANSFER - STEP 1: Does the patient complete the activity by him/herself with no assistance (physical, verbal/nonverbal cueing, setup/clean-up)? No. TOILET TRANSFER - STEP 2: Does the patient need only setup/clean-up assistance from one helper? No. TOILET TRANSFER - STEP 3: Does the patient need only verbal/nonverbal cueing or touching/steadying/contact guard assistance fro m one helper? Yes. 1. [id number] ADMISSION PERFORMANCE: Supervision or touching assistance CODE: 04 TRANSFERS: CAR: Not attempted due to medical condition or safety concerns CODE: 88 WALK 10 FEET: WALK 10 FEET - STEP 1: Does the patient complete the activity by him/herself with no assistance (physical, verbal/nonverbal cueing, setup/clean-up)? No. WALK 10 FEET - STEP 2: Does the patient need only setup/clean-up assistance from one helper? No. WALK 10 FEET - STEP 3: Does the patient need only verbal/nonverbal cueing or touching/steadying/contact guard assistance fro m one helper? Yes. 1. [id number] ADMISSION PERFORMANCE: Supervision or touching assistance CODE: WALK 50 FEET: WALK 50 FEET - STEP 1: Does the patient complete the activity by him/herself with no assistance (physical, verbal/nonverbal cueing, setup/clean-up)? No. WALK 50 FEET - STEP 2: Does the patient need only setup/clean-up assistance from one helper? No. WALK 50 FEET - STEP 3: Does the patient need only verbal/nonverbal cueing or touching/steadying/contact guard assistance fro m one helper? Yes. 1. [id number] ADMISSION PERFORMANCE: Supervision or touching assistance CODE: WALK 150 FEET: WALK 150 FEET - STEP 1: Does the patient complete the activity by him/herself with no assistance (physical, verbal/nonverbal cueing, setup/clean-up)? No. WALK 150 FEET - STEP 2: Does the patient need only setup/clean-up assistance from one helper? No. WALK 150 FEET - STEP 3: Does the patient need only verbal/nonverbal cueing or touching/steadying/contact guard assistance fro m one helper? Yes. 1. [id number] ADMISSION PERFORMANCE: Supervision or touching assistance CODE: 04 WALK 10 FEET UNEVEN: Not attempted due to medical condition or safety concerns CODE: 88 1 STEP (CURB): Not attempted due to medical condition or safety concerns CODE: 88 PICKING UP OBJECT: Not applicable - Not attempted and the patient did not perform this activity prior to the current ill ness, exacerbation, or injury. CODE: 09 DOES THE PATIENT USE A WHEELCHAIR/SCOOTER? Q1. DOES THE PATIENT USE A WHEELCHAIR/SCOOTER?: Yes CODE: 1 WHEEL 50 FEET WITH TWO TURNS: WHEEL 50 FEET WITH TWO TURNS - STEP 1: Does the patient complete the activity by him/herself with no assistance (physical, verbal/nonverbal cueing, setup/clean-up)? No. WHEEL 50 FEET WITH TWO TURNS - STEP 2: Does the patient need only setup/clean-up assistance from one helper? No. WHEEL 50 FEET WITH TWO TURNS - STEP 3: Does the patient need only verbal/nonverbal cueing or touching/steadying/contact guard assistance fro m one helper? No. WHEEL 50 FEET WITH TWO TURNS - STEP 4: Does the patient need physical assistance - for example lifting or trunk support from one helper - wi th the helper providing less than half of the effort? No. WHEEL 50 FEET WITH TWO TURNS - STEP 5: Does the patient need physical assistance - for example lifting or trunk support from one helper - wi th the helper providing more than half of the effort? Yes. 1. [id number] ADMISSION PERFORMANCE: Substantial/maximal assistance CODE: 02 INDICATE THE TYPE OF WHEELCHAIR/SCOOTER USED: RR1. INDICATE THE TYPE OF WHEELCHAIR/SCOOTER USED.: Manual CODE: 1 WHEEL 150 FEET: Not applicable - Not attempted and the patient did not perform this activity prior to the current ill ness, exacerbation, or injury. CODE: 09 INDICATE THE TYPE OF WHEELCHAIR/SCOOTER USED: CODE: EXPR BLADDER AND BOWEL: CODE: EXPR CODE: EXPR SIGNATURE PANEL: The following modified sections: 1. [id number] Admission Performance, 1. [id number] Admission Performance, 1. [id number] Admission Performance, 1. [id number] Admission Performance, 1. [id number] Admission Performance, 1. [id number] Admission Performance, 1. [id number] Admission Performance, 1. [id number] Admission Performance , 1. [id number] Admission Performance, 1. [id number] Admission Performance, 1. [id number] Admission Performanc e, Q1. Does the patient use a wheelchair/scooter?, 1. [id number] Admission Performance, 1. [id number] Admis sarahy Performance, RR1. Indicate the type of wheelchair/scooter used., Code were [electronically] sign ed by Sena Hirsch PTA on TueMay 18 2019 13:28:36 GMT-0600 (Central Standard Time)
--- NOTE | 2019-05-18 15:29 | FAST ---
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 River Pichardo M.D. ADMISSION DIAGNOSIS: - Stroke 01 - Right Body (Left Brain) (01.2) Nonhemorrhagic Acute Infarction in the Posterior Limb Internal Capsule on the left . - Neurologic Conditions 03 - Parkinsonism (03.2) Parkinsons Disease. EATING: Not assessed/no information CODE: - ORAL HYGIENE: ORAL HYGIENE - STEP 1: Does the patient complete the activity by him/herself with no assistance (physical, verbal/nonverbal cueing, setup/clean-up)? Yes. 1. [id number] ADMISSION PERFORMANCE: Independent CODE: 06 TOILETING HYGIENE: Not assessed/no information CODE: - BATHING: SHOWER/BATHE SELF - STEP 1: Does the patient complete the activity by him/herself with no assistance (physical, verbal/nonverbal cueing, setup/clean-up)? No. SHOWER/BATHE SELF - STEP 2: Does the patient need only setup/clean-up assistance from one helper? No. SHOWER/BATHE SELF - STEP 3: Does the patient need only verbal/nonverbal cueing or touching/steadying/contact guard assistance fro m one helper? Yes. 1. [id number] ADMISSION PERFORMANCE: Supervision or touching assistance CODE: 04 DRESSING - UPPER BODY: DRESSING - UPPER BODY - STEP 1: Does the patient complete the activity by him/herself with no assistance (physical, verbal/nonverbal cueing, setup/clean-up)? No. DRESSING - UPPER BODY - STEP 2: Does the patient need only setup/clean-up assistance from one helper? No. DRESSING - UPPER BODY - STEP 3: Does the patient need only verbal/nonverbal cueing or touching/steadying/contact guard assistance fro m one helper? Yes. 1. [id number] ADMISSION PERFORMANCE: Supervision or touching assistance CODE: 04 DRESSING - LOWER BODY: DRESSING - LOWER BODY - STEP 1: Does the patient complete the activity by him/herself with no assistance (physical, verbal/nonverbal cueing, setup/clean-up)? No. DRESSING - LOWER BODY - STEP 2: Does the patient need only setup/clean-up assistance from one helper? No. DRESSING - LOWER BODY - STEP 3: Does the patient need only verbal/nonverbal cueing or touching/steadying/contact guard assistance fro m one helper? Yes. 1. [id number] ADMISSION PERFORMANCE: Supervision or touching assistance CODE: 04 PUTTING ON/TAKING OFF FOOTWEAR: FOOTWEAR - STEP 1: Does the patient complete the activity by him/herself with no assistance (physical, verbal/nonverbal cueing, setup/clean-up)? No. FOOTWEAR - STEP 2: Does the patient need only setup/clean-up assistance from one helper? Yes. 1. [id number] ADMISSION PERFORMANCE: Setup or clean-up assistance CODE: 05 DOES THE PATIENT USE A WHEELCHAIR/SCOOTER? CODE: EXPR INDICATE THE TYPE OF WHEELCHAIR/SCOOTER USED: CODE: EXPR INDICATE THE TYPE OF WHEELCHAIR/SCOOTER USED: CODE: EXPR BLADDER AND BOWEL: CODE: EXPR CODE: EXPR SIGNATURE PANEL: The following modified sections: 1. [id number] Admission Performance, 1. [id number] Admission Performance, 1. [id number] Admission Performance, 1. [id number] Admission Performance, 1. [id number] Admission Performance were [electronically] signed by NANCY Shrestha on TueMay 18 2019 15:28:36 GMT-0600 (Central Standard Time)
[2019-05-18] MEDS: ENOXAPARIN 40 MG/0.4 ML SQ SCH (17:12)
[2019-05-18] MEDS: DOCUSATE NA/SENNA CONC 1 TAB PO SCH (20:21)
[2019-05-18] MEDS: ATORVASTATIN 20 MG TAB PO SCH (20:21)
[2019-05-19 05:46] VITALS: BMI 23.3
[2019-05-19 07:57] VITALS: BP 135/66; TEMP 97.4
[2019-05-19] MEDS: CLOPIDOGREL 75 MG TABLET PO SCH (08:09)
[2019-05-19] MEDS: CARBIDOPA/LEVODOPA 25/100 TAB PO SCH (08:10)
[2019-05-19] MEDS: DULOXETINE 20 MG CAP PO SCH (08:10)
[2019-05-19] MEDS: ENSURE HIGH PROTEIN 237 ML CAN PO SCH (08:10)
[2019-05-19] MEDS: MEGESTROL 40 MG TAB PO SCH (08:10)
[2019-05-19] MEDS: LOSARTAN POTASSIUM 50 MG TABLET PO SCH (08:10)
[2019-05-19] MEDS: FOLIC ACID 1 MG TABLET PO SCH (08:10)
[2019-05-19] MEDS: ASPIRIN 81 MG CHEWABLE TABLET PO SCH (08:10)
[2019-05-19] MEDS: PROMOD 30 ML DOSE PO SCH (08:11)
== END 2019-05-19 11:10 | DRG 57 ==
LOC: 5TH 19:11
PROVIDERS: ADMIT Psychiatry & Neurology Neurology with Special Qualifications in Child Neurology; ATTEND Psychiatry & Neurology Neurology with Special Qualifications in Child Neurology
DX: I69.351 Hemiplegia and hemiparesis following cerebral infarction affecting right dominant side (principal); I10 Essential (primary) hypertension; G20 Parkinson's disease
CPT/HCPCS: 36415; 74018; 80048; 81001; 82040; 83735; 84134; 85025; 87077; 87086; 87088; 87186; 92507; 92523; 92526; 92610; 97110; 97112; 97116; 97161; 97530; J1650